=== PATIENT | female | born 1990 | race American Indian/Alaskan Native ===

== ENCOUNTER 2016-07-17 13:12 | Emergency (ER) | payer MEDICAID ==
[2016-07-17 13:12] VITALS: BMI 28.1
[2016-07-17 14:28] VITALS: RESP 18; TEMP 98.4
--- NOTE | 2016-07-17 15:10 | C.PDOC ---
History Of Present Illness 25 y/o female complaining of a wound to her tongue that occurred at 13:30pm. Two weeks ago she had a "frog eye" tongue piercing placed, today she was eating and she felt the jewelry pull up and immediately had bleeding. At this time, she denies any bleeding. No other complaint at this time. Time Seen by Provider: 07/17/16 14:41 Chief Complaint (Nursing): Abnormal Skin Integrity History Per: Patient History/Exam Limitations: no limitations Onset/Duration Of Symptoms: Hrs Current Symptoms Are (Timing): Still Present Quality Of Symptoms: Painful Severity: Moderate Recent travel outside of the [place]: No Additional History Per: Patient Past Medical History Vital Signs: Last Vital Signs Temp 98.4 F 07/17/16 14:23 Pulse 72 07/17/16 15:14 Resp 18 07/17/16 15:14 BP 120/75 07/17/16 15:14 Pulse Ox 98 07/17/16 15:14 - Medical History PMH: Arthritis, Asthma, HTN, Peripheral Edema (FROM FRACTURE), Rheumatoid Arthritis (SLE '05), Seizures Denies: Chronic Kidney Disease Surgical History: Endoscopy - [facility] Procedures FUSION OF LEFT ANKLE JOINT WITH INT FIX, OPEN APPROACH (11/08/15) INJECT/INFUSE NEC (03/22/14) Family History: States: Unknown Family Hx - Social History Hx Tobacco Use: No Hx Alcohol Use: No Hx Substance Use: No - Immunization History Hx Tetanus Toxoid Vaccination: Yes Hx Influenza Vaccination: Yes Hx Pneumococcal Vaccination: Yes Review Of Systems Except As Marked, All Systems Reviewed And Found Negative. ENT: Positive for: Other (laceration to tongue) Physical Exam - Physical Exam Appears: Non-toxic, No Acute Distress Skin: Warm, Dry Tongue: Laceration (Irregular laceration with flap, approximately 4 mm deep not through. No bleeding, discharge, or erythema. Mildly tender. ) Lips: Normal Appearing Throat: No Erythema Neck: Normal ROM Chest: Symmetrical, No Deformity Respiratory: No Wheezing ED Course And Treatment O2 Sat by Pulse Oximetry: 100 Medical Decision Making Medical Decision Making: Initial impression: tongue laceration. Does not require closure at this time. Discussed wound care, and signs of infection. Patient instructed to follow up with PMD in the next few days. Disposition Counseled Patient/Family Regarding: Diagnosis - Disposition Disposition: HOME/ ROUTINE Disposition Time: 15:07 Condition: STABLE Additional Instructions: Allow tongue to heal fully. Watch for signs of infection including redness, swelling and discharge. Prescriptions: Amoxicillin 875 mg PO BID #14 tablet Instructions: Acute Wound Care (ED) Forms: Work Excuse - Clinical Impression Clinical Impression: Tongue wound - Scribe Statement The provider has reviewed the documentation as recorded by the Scribe (Osiris Norris)
[2016-07-17 15:14] VITALS: BP 120/75; PULSE 72
[2016-07-17 17:14] VITALS: O2SAT 100
== END 2016-07-17 15:15 | disposition home or self-care (01) ==
LOC: C.ER 13:12
DX: S01.512A Laceration without foreign body of oral cavity, initial encounter (principal); X58.XXXA Exposure to other specified factors, initial encounter

== ENCOUNTER 2016-07-31 12:30 | Emergency (ER) | payer MEDICAID ==
[2016-07-31 12:31] VITALS: BMI 28.1
--- NOTE | 2016-07-31 14:42 | C.PDOC ---
History Of Present Illness 25 yr old female presents to the ER for evaluation of itching to the entire body since yesterday. Patient reports of urticaria rash. Patient reports of feeling nauseous yesterday and states due to that she had decrease PO intake. Patient denies fever, chills, chest pain, SOB, nausea, vomiting, abdominal pain , diarrhea, dysuria, incontinence, weakness or numbness. Time Seen by Provider: 07/31/16 13:42 Chief Complaint (Nursing): Abnormal Skin Integrity History Per: Patient History/Exam Limitations: no limitations Onset/Duration Of Symptoms: Days (1) Past Medical History Reviewed: Historical Data, Nursing Documentation, Vital Signs Vital Signs: Last Vital Signs Temp 98.0 F 07/31/16 13:23 Pulse 90 07/31/16 13:23 Resp 20 07/31/16 13:23 BP 119/82 07/31/16 13:23 Pulse Ox 100 07/31/16 14:45 - Medical History PMH: Arthritis, Asthma, HTN, Peripheral Edema (FROM FRACTURE), Rheumatoid Arthritis (SLE '05), Seizures Surgical History: Endoscopy - [facility] Procedures FUSION OF LEFT ANKLE JOINT WITH INT FIX, OPEN APPROACH (11/08/15) INJECT/INFUSE NEC (03/22/14) Family History: States: No Known Family Hx - Social History Hx Tobacco Use: No Hx Alcohol Use: No Hx Substance Use: No - Immunization History Hx Tetanus Toxoid Vaccination: Yes Hx Influenza Vaccination: Yes Hx Pneumococcal Vaccination: Yes Review Of Systems Except As Marked, All Systems Reviewed And Found Negative. Constitutional: Negative for: Fever, Chills Cardiovascular: Negative for: Chest Pain Respiratory: Negative for: Shortness of Breath Gastrointestinal: Negative for: Nausea, Vomiting, Abdominal Pain, Diarrhea Genitourinary: Negative for: Dysuria, Incontinence Skin: Positive for: Rash (urticaria itchy rash to entire rash) Neurological: Negative for: Weakness, Numbness Physical Exam - Physical Exam Appears: Well, Non-toxic, No Acute Distress Skin: Warm, Dry, Rash (urticarial rash diffusely, patient is actively scratching ) Head: Atraumatic, Normacephalic Eye(s): bilateral: Normal Inspection, PERRL, EOMI Oral Mucosa: Moist Throat: Normal, No Erythema, No Exudate, No Drooling Neck: Normal, Normal ROM, Supple Chest: Symmetrical, No Tenderness Cardiovascular: Rhythm Regular, No Murmur Respiratory: Normal Breath Sounds, No Rales, No Rhonchi, No Stridor, No Wheezing Extremity: Normal ROM, No Swelling Neurological/Psych: Oriented x3, Normal Speech, Normal Motor ED Course And Treatment O2 Sat by Pulse Oximetry: 100 Medical Decision Making Medical Decision Making: PLAN: * Prednisone PO Disposition Counseled Patient/Family Regarding: Diagnosis, Need For Followup, Rx Given - Disposition Disposition: HOME/ ROUTINE Disposition Time: 15:29 Condition: STABLE Additional Instructions: Follow up with your doctor. 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 Prescriptions: Prednisone [Deltasone] 60 mg PO DAILY #12 tablet Instructions: Urticaria (ED), General Allergic Reaction (ED) Forms: General Discharge Instructions, Work Excuse - POA Present On Arrival: None - Clinical Impression Clinical Impression: Allergic reaction - Scribe Statement The provider has reviewed the documentation as recorded by the Xenaibe Darlene Servin Provider Attestation: All medical record entries made by the Scribe were at my direction and personally dictated by me. I have reviewed the chart and agree that the record accurately reflects my personal performance of the history, physical exam, medical decision making, and the department course for this patient. I have also personally directed, reviewed, and agree with the discharge instructions and disposition.
[2016-07-31 15:42] VITALS: BP 118/75; PULSE 86; RESP 18; TEMP 98.2; O2SAT 99
== END 2016-07-31 15:42 | disposition home or self-care (01) ==
LOC: C.ER 12:30
DX: L50.0 Allergic urticaria (principal)

== ENCOUNTER 2016-09-18 12:10 | Inpatient (IN) | payer MEDICAID ==
[2016-09-07 09:39] VITALS: BMI 29.6
[2016-09-18] MEDS ORDERED: ceFAZolin IV 1 gm in Dextrose 1 GM/50 ML BAG IVPB ONE (13:24)
[2016-09-18] MEDS ORDERED: ceFAZolin IV 2 gm in Dextrose 0 GM/0 ML BAG IVPB ONE (13:25)
[2016-09-18] MEDS ORDERED: Bupivacaine 0.5% Inj(30mL) ONE ×2 (13:25→13:38)
[2016-09-18] MEDS ORDERED: Lidocaine 1% Inj (20ml) ONE (13:26)
[2016-09-18] MEDS ORDERED: Propofol 10 mg/ml Inj (20 ML) ONE (13:34)
[2016-09-18] MEDS ORDERED: Midazolam 2 MG/2 ML VIAL ONE (13:34)
[2016-09-18] MEDS ORDERED: Lactated Ringer's 1,000 ML IV ONE ×2 (13:44→16:51)
[2016-09-18] MEDS ORDERED: Morphine 4 MG/ML VIAL ONE ×4 (15:43→16:47)
[2016-09-18] MEDS ORDERED: Absorbable Gelatin Sponge Size 12-7 ONE (16:34)
[2016-09-18] MEDS ORDERED: Bupivacaine HCl 0.25% PF (10 ml) Inj ONE (16:56)
[2016-09-18] MEDS: HYDROmorphone 0.5 mg/0.5 ml ISec IVP PRN ×2 (17:35→17:50)
--- NOTE | 2016-09-18 17:36 | PCM.SURG1 ---
Surgeon's Initial Post Op Note - Surgeon's Notes Surgeon: Dr. Leon [employer] Technician: Harley, PGY-2 Type of Anesthesia: General LMA, Block Regional (popliteal block) Anesthesia Administered By: Dr. Lisa Pre-Operative Diagnosis: Left ankle- painful retained hardware Operative Findings: See dictation. Hemostasis: PTT at 350mmHg. Materials: 3-0 vicryl, 4-0 vicryl, 4-0 nylon, betadine-soaked adaptic, ABD pads, DSD, posterior splint; 15cc of Octonius Pro-dense bone graft. Injectables: 10cc 0.25% Marcaine plain post-op. Condition: Stable Post-Operative Diagnosis: Same as above Operation Performed: Left ankle- removal of painful retained hardware (tibial nail and screws) Specimen/Specimens Removed: Tibial nail and 4 bone screws Estimated Blood Loss: EBL {In ML}: 25 Blood Products Given: N/A Drains Used: No Drains Post-Op Condition: Good Date of Surgery/Procedure: 09/18/16 Time of Surgery/Procedure: 14:00
--- NOTE | 2016-09-18 17:40 | CP.SDSHP ---
Same Day Surgery H & P - History Proposed Procedure: Left ankle- removal of painful retained hardware Pre-Op Diagnosis: Left ankle- painful retained hardware - Previous Medical/Surgical History Pain: 4.Moderate Pain Previous Surgical History: Left tibiotalocalcaneal fusion - Allergies Allergies: Allergies latex Allergy (Intermediate, Verified 07/31/16 13:22) RASH diphenhydramine HCl [From Benadryl] Allergy (Mild, Verified 07/31/16 13:22) RASH seafood Allergy (Intermediate, Uncoded 07/31/16 13:22) RASH - Physical Exam Vital Signs: Vital Signs 09/18/16 12:19 Temperature 97.5 F L Pulse Rate 98 H Respiratory 18 Rate Blood Pressure 128/87 O2 Sat by Pulse 99 Oximetry Mental Status: Alert & Oriented x3 - Impression Impression: Patient to OR today for removal of Left ankle removal of painful hardware. Patient's medical clearance in chart. Patient's NPO status confirmed. Pt. Evaluated Today:Candidate for Anesthesia & Procedure: Yes Short Stay Discharge - Short Stay Discharge Admitting Diagnosis/Reason for Visit: PAIN DUE TO INTERNAL ORTHOPEDIC PROSTH DEV /GRTORIE, I Referrals: Carly Leon DPM [Staff Provider] - Instructions: Crutch Instructions (DC), RICE Therapy (GEN)
[2016-09-18] MEDS ORDERED: HYDROmorphone 1 mg/ml ISec ONE ×2 (17:46→18:12)
[2016-09-18] MEDS ORDERED: HYDROmorphone 0.5 mg/0.5 ml ISec IVP ONE ×2 (18:12→18:40)
--- NOTE | 2016-09-18 18:52 | CP.PCM.HP ---
<Jamaal Tavera - Last Filed: 09/18/16 19:55> History of Present Illness - History of Present Illness History of Present Illness: cc: "ankle pain" HPI: Patient is a 25 year old male with PMHx of hypertension (no longer on medication), hx of seizures (last 2010, no longer on medications), Lupus, joint degeneration that underwent left ankle hardware removal. Per the mother at bedside, the hardware was originally placed about 1 year ago for a severely degenerated joint due to being steroids for so long for her lupus. Patient was informed that the hardware may have been causing some of lupus flare ups. She was admitted to the hospital for intractable post operative pain. PMHx: As stated above PSHx: Left tibiotalocalcaneal fusion Allergies: Benadryl, Seafood, Latex Fam hx: unknown Social hx: Denies hx of smoking, alcohol, drugs Present on Admission - Present on Admission Any Indicators Present on Admission: No Review of Systems - Constitutional Constitutional: absent: Anorexia, Chills, Frequent Falls, Weight Loss, Weakness - Cardiovascular Cardiovascular: absent: Chest Pain, Claudication, Irregular Heart Rhythm, Leg Edema, Palpitations, Pedal Edema - Respiratory Respiratory: absent: Cough, Dyspnea, Hemoptysis, Wheezing - Gastrointestinal Gastrointestinal: absent: Abdominal Pain, Change in Bowel Habits, Constipation, Diarrhea, Nausea, Vomiting - Genitourinary Genitourinary: absent: Difficulty Urinating, Dysuria - Musculoskeletal Musculoskeletal: absent: Back Pain, Myalgias, Numbness, Tingling Additional comments: left ankle pain - Neurological Neurological: absent: Abnormal Hearing, Tingling, Tremor, Weakness - Psychiatric Psychiatric: absent: Anxiety, Panic Attacks, Paranoia, Suicidal Ideation - Endocrine Endocrine: absent: Fatigue, Palpitations Past Patient History - Infectious Disease Hx of Infectious Diseases: None - Tetanus Immunizations Tetanus Immunization: Unknown - Past Medical History & Family History Past Medical History?: Yes - Past Social History Smoking Status: Never Smoked Chewing Tobacco Use: No Cigar Use: No Alcohol: None - CARDIAC Hx Cardiac Disorders: Yes Hx Hypertension: Yes (controlled no meds per pt) Hx Peripheral Edema: Yes (FROM FRACTURE) - PULMONARY Hx Respiratory Disorders: Yes Hx Asthma: Yes (never hospitalized) - NEUROLOGICAL Hx Neurological Disorder: Yes Hx Seizures: Yes (febrile 2010 last) - ENDOCRINE/METABOLIC Hx Endocrine Disorders: Yes Hx Systemic Lupus Erythematosus: Yes - HEMATOLOGICAL/ONCOLOGICAL Hx Blood Disorders: Yes Hx Blood Transfusions: Yes (2011) Hx Blood Transfusion Reaction: No - INTEGUMENTARY Hx Dermatological Problems: Yes (lupus rash neck) - MUSCULOSKELETAL/RHEUMATOLOGICAL Hx Musculoskeletal Disorders: Yes Hx Arthritis: Yes Hx Degenerative Joint Disease: Yes Hx Rheumatoid Arthritis: Yes (SLE '05) - GASTROINTESTINAL Hx Gastrointestinal Disorders: Yes Hx Gastroesophageal Reflux: Yes - SURGICAL HISTORY Hx Surgeries: Yes Hx Joint Replacement: Yes (abiodun hip) Hx Orthopedic Surgery: Yes (fusion left ankle) - ANESTHESIA Hx Anesthesia: Yes Hx Anesthesia Reactions: No Hx Malignant Hyperthermia: No Has any member of the family had a problem w/ anesthesia?: No Meds Allergies/Adverse Reactions: Allergies Allergy/AdvReac Type Severity Reaction Status Date / Time latex Allergy Intermediate RASH Verified 07/31/16 13:22 diphenhydramine HCl Allergy Mild RASH Verified 07/31/16 13:22 [From Benadryl] seafood Allergy Intermediate RASH Uncoded 07/31/16 13:22 Physical Exam - Constitutional Appears: Non-toxic, No Acute Distress - Head Exam Head Exam: ATRAUMATIC, NORMAL INSPECTION, NORMOCEPHALIC - Eye Exam Pupil Exam: NORMAL ACCOMODATION, PERRL - ENT Exam ENT Exam: Mucous Membranes Moist - Respiratory Exam Respiratory Exam: Clear to Auscultation Bilateral, NORMAL BREATHING PATTERN. absent: Prolonged Expiratory Phase, Rales, Rhonchi, Wheezes - Cardiovascular Exam Cardiovascular Exam: REGULAR RHYTHM, +S1, +S2 - GI/Abdominal Exam GI & Abdominal Exam: Normal Bowel Sounds, Soft. absent: Distended, Firm, Hyperactive Bowel Sounds, Tenderness - Extremities Exam Extremities exam: Positive for: normal capillary refill Additional comments: Left ankle wrapped - Neurological Exam Neurological exam: Alert, CN II-XII Intact, Oriented x3 - Psychiatric Exam Psychiatric exam: Agitated, Normal Affect, Normal Mood - Skin Skin Exam: Dry, Intact, Normal Color, Warm Results - Vital Signs Recent Vital Signs: Last Vital Signs Temp 98 F 09/18/16 17:30 Pulse 122 H 09/18/16 17:30 Resp 13 09/18/16 17:30 BP 144/103 H 09/18/16 17:30 Pulse Ox 98 09/18/16 17:30 Assessment & Plan - Assessment and Plan (Free Text) Assessment: Intractable pain Percocet 2 tab PO Q4h PRN Percocet 1 tab PO Q4h PRN Dilaudid 1mg IVP Q3h PRN Tylenol 650mg PO Q6h PRN SLE Prednisone 4mg PO Daily Cellcept 250mg PO TID Plaquenil 200mg PO BID Prophylactic Measure Protonix 40mg PO Daily Heparin 5000U SC Q8h <Cedric Hatch - Last Filed: 09/19/16 13:28> Results - Vital Signs Recent Vital Signs: Last Vital Signs Temp 98 F 09/19/16 07:00 Pulse 109 H 09/19/16 10:00 Resp 20 09/19/16 07:00 BP 135/91 H 09/19/16 10:00 Pulse Ox 100 09/19/16 07:00 - Labs Result Diagrams: 09/19/16 07:09 09/19/16 07:09 Labs: Laboratory Results - last 24 hr 09/19/16 09/19/16 07:09 07:09 WBC 7.8 RBC 4.01 Hgb 12.1 Hct 36.8 MCV 91.8 MCH 30.2 MCHC 32.9 L RDW 12.9 Plt Count 294 MPV 7.3 Neut % (Auto) 70.3 Lymph % (Auto) 15.3 L [place] % (Auto) 13.8 H Eos % (Auto) 0.2 Baso % (Auto) 0.4 Neut # 5.5 Lymph # 1.2 [place] # 1.1 H Eos # 0.0 Baso # 0.0 Sodium 137 Potassium 3.8 Chloride 103 Carbon Dioxide 25 Anion Gap 14 BUN 13 Creatinine 0.8 Est GFR ( Amer) > 60 Est GFR (Non-Af Amer) > 60 Random Glucose 83 Calcium 8.9 Total Bilirubin 0.7 AST 47 H D ALT 97 H D Alkaline Phosphatase 80 Total Protein 6.8 Albumin 3.7 Globulin 3.1 Albumin/Globulin Ratio 1.2 Attending/Attestation - Attestation I have personally seen and examined this patient.: Yes I have fully participated in the care of the patient.: Yes I have reviewed all pertinent clinical information: Yes Notes (Text): 09/19/16 13:27 Patient was seen and examined at bedside with the resident. Patient is to status post removal of hardware from the left ankle. Patient admitted to medical services on the request podiatry for management of pain and for management of her medical conditions. I discussed the plan of care with the resident and agree with the above history and physical and assessment/plan.
[2016-09-18] MEDS ORDERED: Albuterol HFA 90 mcg/actuation (8 g) INH PRN (19:51)
[2016-09-18] MEDS ORDERED: HYDROmorphone 1 mg/ml ISec IVP PRN (19:53)
[2016-09-18] MEDS: ceFAZolin IV 1 gm in Dextrose 1 GM/50 ML BAG IVPB SCH (22:31)
[2016-09-18] MEDS ORDERED: Morphine 4 MG/ML VIAL IV PRN (23:00)
[2016-09-19] MEDS: Oxycodone/Acetaminophen 5/325 mg Tab PO PRN ×2 (04:38→20:59)
[2016-09-19] MEDS: ceFAZolin IV 1 gm in Dextrose 1 GM/50 ML BAG IVPB SCH (05:53)
[2016-09-19 07:40] LABS: BASO % 0.4 % (0.0-2.0); EOS % 0.2 % (0.0-4.0); HEMATOCRIT 36.8 % (34.0-47.0); LYMPH # 1.2 K/uL (1.0-4.3); LYMPH % 15.3 % (20.0-40.0); MEAN CELL VOLUME 91.8 fL (81.0-99.0); MEAN CORPUSCULAR HEMOGLOBIN 30.2 pg (27.0-31.0); MEAN CORPUSCULAR HGB CONC 32.9 g/dL (33.0-37.0); MEAN PLATELET VOLUME 7.3 fL (7.2-11.7); MONO # 1.1 K/uL (0.0-0.8); MONO % 13.8 % (0.0-10.0); RED CELL DISTRIBUTION WIDTH 12.9 % (11.5-14.5); WHITE BLOOD COUNT 7.8 K/uL (4.8-10.8)
[2016-09-19 07:45] LABS: CHLORIDE 103 mmol/L (98-107); POTASSIUM 3.8 mmol/L (3.6-5.2); SODIUM 137 mmol/L (132-148)
[2016-09-19 07:47] LABS: GFR AFRICAN-AMERICAN > 60
[2016-09-19 07:48] LABS: ALB/GLOB RATIO 1.2 (1.0-2.1); ALKALINE PHOSPHATASE 80 U/L (38-126); ALT/SGPT 97 U/L (9-52); AST/SGOT 47 U/L (14-36); BILIRUBIN,TOTAL 0.7 mg/dL (0.2-1.3); BLOOD UREA NITROGEN 13 mg/dL (7-17); CALCIUM 8.9 mg/dl (8.6-10.4); CARBON DIOXIDE 25 mmol/L (22-30); GLUCOSE,RANDOM 83 mg/dL (65-105); TOTAL PROTEIN 6.8 g/dL (6.3-8.3)
--- NOTE | 2016-09-19 09:50 | CP.PCM.PN ---
Subjective - Date & Time of Evaluation Date of Evaluation: 09/19/16 Time of Evaluation: 10:00 - Subjective Subjective: 25 y/o female was seen and evaluated at bedside this morning. Patient is 1 day s /p Left ankle removal of painful retained hardware. She states that she was unable to sleep throughout the night due to the severity of her pain. She states that the Dilaudid was making her vomit and the switch to Morphine makes her sleepy. She denies any fever/chills. Complains of generalized/diffuse pain in her Left lower extremity. She states that she "can not go home like this." LLE is elevated; posterior splint C/D/I. Objective - Vital Signs/Intake and Output Vital Signs (last 24 hours): Temp Pulse Resp BP Pulse Ox 98 F 94 H 20 141/80 100 09/19/16 07:00 09/19/16 08:31 09/19/16 07:00 09/19/16 08:31 09/19/16 07:00 Intake and Output: 09/19/16 09/19/16 06:59 18:59 Output Total 600 Balance -600 - Medications Medications: Current Medications Acetaminophen (Tylenol 325mg Tab) 650 mg PO Q6 PRN PRN Reason: Pain, Mild (1-3) Albuterol (Ventolin Hfa 90 Mcg/Actuation (8 G)) 1 puff INH RBID PRN PRN Reason: Wheezing Ferrous Sulfate (Feosol) 325 mg PO DAILY [facility] Heparin Sodium (Porcine) (Heparin) 5,000 units SC Q8 [facility] Last Admin: 09/19/16 05:53 Dose: 5,000 units Hydroxychloroquine Sulfate (Plaquenil) 200 mg PO BID [facility] Cefazolin Sodium/Dextrose (Ancef Iv 1 Gm Duplex) 1 gm in 50 mls @ 100 mls/hr IVPB Q8H [facility] Stop: 09/19/16 12:00 Last Admin: 09/19/16 05:53 Dose: 100 mls/hr Morphine Sulfate (Morphine) 2 mg IVP Q4 PRN PRN Reason: Pain, severe (8-10) Last Admin: 09/19/16 08:32 Dose: 2 mg Mycophenolate Mofetil (Cellcept Cap) 250 mg PO TID [facility] Ondansetron HCl (Zofran Tab) 4 mg PO PRN PRN PRN Reason: Nausea/Vomiting Oxycodone/Acetaminophen (Percocet 5/325 Mg Tab) 1 tab PO Q4H PRN PRN Reason: Pain, moderate (4-7) Stop: 09/21/16 17:32 Oxycodone/Acetaminophen (Percocet 5/325 Mg Tab) 2 tab PO Q4H PRN PRN Reason: Pain, severe (8-10) Stop: 09/21/16 17:32 Last Admin: 09/19/16 04:38 Dose: 2 tab Pantoprazole Sodium (Protonix Ec Tab) 40 mg PO DAILY [facility] Prednisone (Prednisone Tab) 4 mg PO DAILY [facility] - Labs Labs: 09/19/16 07:09 09/19/16 07:09 - Constitutional Appears: Non-toxic, No Acute Distress - Neurological Exam Neurological Exam: Alert, Awake, Oriented x3 - Skin Skin Exam: Normal Color, Warm - Additional Findings Additional findings: Left lower extremity: Posterior splint appears to be C/D/I Normal capillary fill time noted to all 5 digits Normal color noted to all distal pulps of digits Unable to perform active ROM of her toes secondary to pain Assessment and Plan - Assessment and Plan (Free Text) Assessment: 25 y/o female 1 day s/p Left ankle removal of painful retained hardware Plan: Patient seen and evaluated at bedside Discussed patient in detail with attending, Dr. Leon Labs and vitals reviewed: no leukocytosis; afebrile Ordered Toradol 30mg IM - stat dose Continue Morphine 2mg IV q4 Will continue to monitor pain level LLE dressings and posterior splint kept intact Continue ice (behind left knee) and elevation with 3 pillows under Left ankle Awaiting PT eval for crutch training and gait eval Patient to continue remaining NWB to the Left lower extremity Podiatry to follow while patient remains in house
--- NOTE | 2016-09-19 09:53 | RAD ---
PROCEDURE: Left Ankle Radiographs. HISTORY: Status post removal of left ankle hardware. COMPARISON: Preoperative examination 08/28/2016. Expected postoperative findings following hardware removal. JOINTS: Normal. No osteoarthritis. Ankle mortise maintained. Talar dome intact SOFT TISSUES: Detail obscured by overlying fiberglass cast. OTHER FINDINGS: None. IMPRESSION: Satisfactory postoperative status. No acute findings.
[2016-09-19] MEDS: Pantoprazole 40 mg EC Tab PO SCH (10:07)
--- NOTE | 2016-09-19 13:13 | RAD ---
PROCEDURE: Intraoperative Fluoroscopy. HISTORY: REMOVAL OF HARDWARE LT ANKLE FINDINGS: Fluoroscopic assistance was provided for removal of left ankle hardware. Please refer to the operative report from
--- NOTE | 2016-09-19 16:14 | CP.PCM.PN ---
Subjective - Date & Time of Evaluation Date of Evaluation: 09/19/16 Time of Evaluation: 16:15 - Subjective Subjective: Med progress note. Attending: Dr. Daugherty Pt seen and examined at bedside. No acute distress, but pt is in some pain. She is s/p left ankle hardware removal. Will add zofran for nausea and oxycontin for pain. Objective - Vital Signs/Intake and Output Vital Signs (last 24 hours): Temp Pulse Resp BP Pulse Ox 97.7 F 94 H 20 109/74 96 09/19/16 15:11 09/19/16 15:11 09/19/16 15:11 09/19/16 15:11 09/19/16 15:11 Intake and Output: 09/19/16 09/19/16 06:59 18:59 Intake Total 400 Output Total 600 Balance -600 400 - Medications Medications: Current Medications Acetaminophen (Tylenol 325mg Tab) 650 mg PO Q6 PRN PRN Reason: Pain, Mild (1-3) Albuterol (Ventolin Hfa 90 Mcg/Actuation (8 G)) 1 puff INH RBID PRN PRN Reason: Wheezing Ferrous Sulfate (Feosol) 325 mg PO DAILY [facility] Last Admin: 09/19/16 10:08 Dose: 325 mg Heparin Sodium (Porcine) (Heparin) 5,000 units SC Q8 [facility] Last Admin: 09/19/16 14:10 Dose: 5,000 units Hydroxychloroquine Sulfate (Plaquenil) 200 mg PO BID [facility] Last Admin: 09/19/16 10:08 Dose: 200 mg Morphine Sulfate (Morphine) 2 mg IVP Q4 PRN PRN Reason: Pain, severe (8-10) Last Admin: 09/19/16 13:48 Dose: 2 mg Mycophenolate Mofetil (Cellcept Cap) 250 mg PO TID [facility] Last Admin: 09/19/16 14:59 Dose: 250 mg Ondansetron HCl (Zofran Tab) 4 mg PO PRN PRN PRN Reason: Nausea/Vomiting Ondansetron HCl (Zofran Inj) 4 mg IVP Q6 PRN PRN Reason: Nausea/Vomiting Oxycodone/Acetaminophen (Percocet 5/325 Mg Tab) 1 tab PO Q4H PRN PRN Reason: Pain, moderate (4-7) Stop: 09/21/16 17:32 Oxycodone/Acetaminophen (Percocet 5/325 Mg Tab) 2 tab PO Q4H PRN PRN Reason: Pain, severe (8-10) Stop: 09/21/16 17:32 Last Admin: 09/19/16 04:38 Dose: 2 tab Pantoprazole Sodium (Protonix Ec Tab) 40 mg PO DAILY [facility] Last Admin: 09/19/16 10:07 Dose: 40 mg Prednisone (Prednisone Tab) 4 mg PO DAILY [facility] Last Admin: 09/19/16 10:09 Dose: 4 mg - Labs Labs: 09/19/16 07:09 09/19/16 07:09 - Constitutional Appears: Non-toxic, No Acute Distress - Head Exam Head Exam: ATRAUMATIC, NORMAL INSPECTION, NORMOCEPHALIC - Eye Exam Eye Exam: EOMI - ENT Exam ENT Exam: Mucous Membranes Moist - Respiratory Exam Respiratory Exam: NORMAL BREATHING PATTERN. absent: Respiratory Distress - Cardiovascular Exam Cardiovascular Exam: +S1, +S2 - GI/Abdominal Exam GI & Abdominal Exam: Soft, Normal Bowel Sounds. absent: Tenderness - Extremities Exam Extremities Exam: Full ROM Additional comments: Cast on left leg. - Neurological Exam Neurological Exam: Alert, Awake, Oriented x3 - Psychiatric Exam Psychiatric exam: Normal Affect, Normal Mood - Skin Skin Exam: Dry, Intact, Normal Color, Warm Assessment and Plan - Assessment and Plan (Free Text) Assessment: This is a 25 yo female with pmh htn, seizures, lupus presenting with Intractable pain Percocet 2 tab PO Q4h PRN Percocet 1 tab PO Q4h PRN Dilaudid 1mg IVP Q3h PRN Tylenol 650mg PO Q6h PRN s/p left ankle hardware removal will add oxycontin as pain relief alternative. SLE Prednisone 4mg PO Daily Cellcept 250mg PO TID Plaquenil 200mg PO BID Prophylactic Measure Protonix 40mg PO Daily Heparin 5000U SC Q8h will add zofran for nausea discussed with Dr. Daugherty
[2016-09-19] MEDS: oxyCODONE 20 mg ER Tab (oxyCONTIN) PO SCH ×2 (22:17→22:35)
[2016-09-20] MEDS: Oxycodone/Acetaminophen 5/325 mg Tab PO PRN ×2 (03:35→20:11)
[2016-09-20 06:22] LABS: BASO % 0.5 % (0.0-2.0); EOS % 0.2 % (0.0-4.0); HEMATOCRIT 36.5 % (34.0-47.0); LYMPH # 1.2 K/uL (1.0-4.3); LYMPH % 12.9 % (20.0-40.0); MEAN CELL VOLUME 92.2 fL (81.0-99.0); MEAN CORPUSCULAR HEMOGLOBIN 30.4 pg (27.0-31.0); MEAN PLATELET VOLUME 7.5 fL (7.2-11.7); MONO # 1.3 K/uL (0.0-0.8); MONO % 13.2 % (0.0-10.0); NRBC % 0.1 % (0.0-2.0); WHITE BLOOD COUNT 9.4 K/uL (4.8-10.8)
[2016-09-20 06:38] LABS: CHLORIDE 103 mmol/L (98-107)
[2016-09-20 06:39] LABS: POTASSIUM 3.8 mmol/L (3.6-5.2); SODIUM 134 mmol/L (132-148)
[2016-09-20 06:41] LABS: ALB/GLOB RATIO 1.1 (1.0-2.1); ALKALINE PHOSPHATASE 72 U/L (38-126); ALT/SGPT 66 U/L (9-52); AST/SGOT 38 U/L (14-36); BILIRUBIN,TOTAL 0.8 mg/dL (0.2-1.3); BLOOD UREA NITROGEN 11 mg/dL (7-17); CARBON DIOXIDE 20 mmol/L (22-30); GFR AFRICAN-AMERICAN > 60; GLUCOSE,RANDOM 86 mg/dL (65-105); TOTAL PROTEIN 6.6 g/dL (6.3-8.3)
[2016-09-20 06:42] LABS: CALCIUM 8.6 mg/dl (8.6-10.4); MAGNESIUM 1.9 mg/dL (1.6-2.3); PHOSPHOROUS 3.9 mg/dL (2.5-4.5)
--- NOTE | 2016-09-20 08:50 | CP.PCM.PN ---
Subjective - Date & Time of Evaluation Date of Evaluation: 09/20/16 Time of Evaluation: 08:30 - Subjective Subjective: 25 y/o female was seen and evaluated at bedside this morning. Patient is 2 days s/p Left ankle removal of painful retained hardware. Patient appears to be more calm today as compared to yesterday. Still complains of ongoing pain in her Left lower extremity, but now states that it has been intermittent instead of being constant. Denies any vomiting since yesterday but still complains of nausea. She denies any fever/chills. No other complaints reported at this time. Objective - Vital Signs/Intake and Output Vital Signs (last 24 hours): Temp Pulse Resp BP Pulse Ox 98.0 F 94 H 20 115/75 100 09/20/16 07:00 09/20/16 07:00 09/20/16 07:00 09/20/16 07:00 09/20/16 07:00 Intake and Output: 09/20/16 09/20/16 06:59 18:59 Intake Total 450 Balance 450 - Medications Medications: Current Medications Albuterol (Ventolin Hfa 90 Mcg/Actuation (8 G)) 1 puff INH RBID PRN PRN Reason: Wheezing Docusate Sodium (Colace) 100 mg PO BID [facility] Ferrous Sulfate (Feosol) 325 mg PO DAILY [facility] Last Admin: 09/19/16 10:08 Dose: 325 mg Heparin Sodium (Porcine) (Heparin) 5,000 units SC Q8 [facility] Last Admin: 09/20/16 06:07 Dose: 5,000 units Hydroxychloroquine Sulfate (Plaquenil) 200 mg PO BID [facility] Last Admin: 09/19/16 18:05 Dose: 200 mg Mycophenolate Mofetil (Cellcept Cap) 250 mg PO TID [facility] Last Admin: 09/19/16 18:05 Dose: 250 mg Ondansetron HCl (Zofran Inj) 4 mg IVP Q6 PRN PRN Reason: Nausea/Vomiting Last Admin: 09/19/16 18:10 Dose: 4 mg Oxycodone HCl (Oxycontin Extended Release Tab) 20 mg PO Q12 [facility] Last Admin: 09/19/16 22:35 Dose: Not Given Oxycodone/Acetaminophen (Percocet 5/325 Mg Tab) 1 tab PO Q4H PRN PRN Reason: Pain, moderate (4-7) Stop: 09/21/16 17:32 Last Admin: 09/19/16 20:59 Dose: 1 tab Oxycodone/Acetaminophen (Percocet 5/325 Mg Tab) 2 tab PO Q4H PRN PRN Reason: Pain, severe (8-10) Stop: 09/21/16 17:32 Last Admin: 09/20/16 03:35 Dose: 2 tab Pantoprazole Sodium (Protonix Ec Tab) 40 mg PO DAILY [facility] Last Admin: 09/19/16 10:07 Dose: 40 mg Prednisone (Prednisone Tab) 4 mg PO DAILY [facility] Last Admin: 09/19/16 10:09 Dose: 4 mg - Labs Labs: 09/20/16 06:03 09/20/16 06:03 - Constitutional Appears: Non-toxic, No Acute Distress - Neurological Exam Neurological Exam: Alert, Awake, Oriented x3 - Psychiatric Exam Psychiatric exam: Flat Affect - Additional Findings Additional findings: Left lower extremity: Posterior splint appears to be C/D/I Normal capillary fill time noted to all 5 digits Normal color noted to all distal pulps of digits Unable to perform active ROM of her toes secondary to pain LLE is elevated Assessment and Plan - Assessment and Plan (Free Text) Assessment: 25 y/o female 2 days s/p Left ankle removal of painful retained hardware Plan: Patient seen and evaluated at bedside Discussed patient in detail with attending, Dr. Leon Labs and vitals reviewed: no leukocytosis; afebrile Continue current pain management LLE dressings and posterior splint kept intact Continue ice (behind left knee) and elevation with 3 pillows under Left ankle Physical therapy recommends TCU vs. discharge home with outpatient follow-up Social work consult placed for D/C planning Patient to continue remaining NWB to the Left lower extremity Podiatry to follow while patient remains in house; patient is to follow-up with Dr. Leon at the [facility] outpatient podiatry clinic upon discharge.
[2016-09-20] MEDS: oxyCODONE 20 mg ER Tab (oxyCONTIN) PO SCH ×2 (10:17→22:17)
[2016-09-20] MEDS: Pantoprazole 40 mg EC Tab PO SCH (10:18)
[2016-09-20] MEDS ORDERED: POLYETHYLENE GLYCOL 3350 17 GM/Dose PACKET PO ONE (10:56)
--- NOTE | 2016-09-20 11:12 | CP.PCM.PN ---
<Kenn Brown - Last Filed: 09/20/16 11:12> Subjective - Date & Time of Evaluation Date of Evaluation: 09/20/16 Time of Evaluation: 11:10 - Subjective Subjective: Medicine progress note. Attending: Dr. Christensen Pt seen and examined at bedside. No acute distress. No events overnight. DC tylenol and morphine, will add colace and miralax, podiatry following. No fevers , chills, vomiting, diarrhea. Objective - Vital Signs/Intake and Output Vital Signs (last 24 hours): Temp Pulse Resp BP Pulse Ox 98.0 F 100 H 20 131/85 100 09/20/16 07:00 09/20/16 10:15 09/20/16 07:00 09/20/16 10:15 09/20/16 07:00 Intake and Output: 09/20/16 09/20/16 06:59 18:59 Intake Total 450 Balance 450 - Medications Medications: Current Medications Albuterol (Ventolin Hfa 90 Mcg/Actuation (8 G)) 1 puff INH RBID PRN PRN Reason: Wheezing Docusate Sodium (Colace) 100 mg PO BID [facility] Last Admin: 09/20/16 10:18 Dose: 100 mg Ferrous Sulfate (Feosol) 325 mg PO DAILY [facility] Last Admin: 09/20/16 10:18 Dose: 325 mg Heparin Sodium (Porcine) (Heparin) 5,000 units SC Q8 [facility] Last Admin: 09/20/16 06:07 Dose: 5,000 units Hydroxychloroquine Sulfate (Plaquenil) 200 mg PO BID [facility] Last Admin: 09/20/16 10:19 Dose: 200 mg Mycophenolate Mofetil (Cellcept Cap) 250 mg PO TID [facility] Last Admin: 09/20/16 10:19 Dose: 250 mg Ondansetron HCl (Zofran Inj) 4 mg IVP Q6 PRN PRN Reason: Nausea/Vomiting Last Admin: 09/19/16 18:10 Dose: 4 mg Oxycodone HCl (Oxycontin Extended Release Tab) 20 mg PO Q12 [facility] Last Admin: 09/20/16 10:17 Dose: 20 mg Oxycodone/Acetaminophen (Percocet 5/325 Mg Tab) 1 tab PO Q4H PRN PRN Reason: Pain, moderate (4-7) Stop: 09/21/16 17:32 Last Admin: 09/19/16 20:59 Dose: 1 tab Oxycodone/Acetaminophen (Percocet 5/325 Mg Tab) 2 tab PO Q4H PRN PRN Reason: Pain, severe (8-10) Stop: 09/21/16 17:32 Last Admin: 09/20/16 03:35 Dose: 2 tab Pantoprazole Sodium (Protonix Ec Tab) 40 mg PO DAILY [facility] Last Admin: 09/20/16 10:18 Dose: 40 mg Polyethylene Glycol (Miralax) 17 gm PO ONCE ONE Stop: 09/20/16 10:57 Prednisone (Prednisone Tab) 4 mg PO DAILY [facility] Last Admin: 09/20/16 10:19 Dose: 4 mg - Labs Labs: 09/20/16 06:03 09/20/16 06:03 - Constitutional Appears: Non-toxic, No Acute Distress - Head Exam Head Exam: ATRAUMATIC, NORMAL INSPECTION, NORMOCEPHALIC - Eye Exam Eye Exam: EOMI - ENT Exam ENT Exam: Mucous Membranes Moist - Neck Exam Neck Exam: Full ROM, Normal Inspection - Respiratory Exam Respiratory Exam: NORMAL BREATHING PATTERN. absent: Respiratory Distress - Cardiovascular Exam Cardiovascular Exam: +S1, +S2 - GI/Abdominal Exam GI & Abdominal Exam: Soft, Normal Bowel Sounds. absent: Tenderness - Extremities Exam Extremities Exam: absent: Normal Inspection Additional comments: Cast on left leg- neurovascular intact with sensation intact - Neurological Exam Neurological Exam: Alert, Awake, Oriented x3 - Psychiatric Exam Psychiatric exam: Flat Affect - Skin Skin Exam: Dry, Intact, Normal Color, Warm Assessment and Plan - Assessment and Plan (Free Text) Assessment: This is a 25 yo female with pmh htn, seizures, lupus presenting with Intractable pain Percocet 5/325 2 tab PO Q4h PRN Percocet 5/325 1 tab PO Q4h PRN s/p left ankle hardware removal we have added oxycontin as pain relief alternative. SLE Prednisone 4mg PO Daily Cellcept 250mg PO TID Plaquenil 200mg PO BID pt has not been following up regularly with eye doctor Prophylactic Measure Protonix 40mg PO Daily Heparin 5000U SC Q8h will add zofran for nausea we will add colace 100 mg bid and miralax 17 mg once and bedside commode Discussed with Dr. Christensen. <Shawanda Christensen V - Last Filed: 09/20/16 16:02> Objective - Vital Signs/Intake and Output Vital Signs (last 24 hours): Temp Pulse Resp BP Pulse Ox 98.0 F 100 H 20 131/85 100 09/20/16 07:00 09/20/16 10:15 09/20/16 07:00 09/20/16 10:15 09/20/16 07:00 Intake and Output: 09/20/16 09/20/16 06:59 18:59 Intake Total 450 Balance 450 - Medications Medications: Current Medications Albuterol (Ventolin Hfa 90 Mcg/Actuation (8 G)) 1 puff INH RBID PRN PRN Reason: Wheezing Docusate Sodium (Colace) 100 mg PO BID [facility] Last Admin: 09/20/16 10:18 Dose: 100 mg Ferrous Sulfate (Feosol) 325 mg PO DAILY [facility] Last Admin: 09/20/16 10:18 Dose: 325 mg Heparin Sodium (Porcine) (Heparin) 5,000 units SC Q8 [facility] Last Admin: 09/20/16 14:34 Dose: 5,000 units Hydroxychloroquine Sulfate (Plaquenil) 200 mg PO BID [facility] Last Admin: 09/20/16 10:19 Dose: 200 mg Mycophenolate Mofetil (Cellcept Cap) 250 mg PO TID [facility] Last Admin: 09/20/16 14:34 Dose: 250 mg Ondansetron HCl (Zofran Inj) 4 mg IVP Q6 PRN PRN Reason: Nausea/Vomiting Last Admin: 09/19/16 18:10 Dose: 4 mg Oxycodone HCl (Oxycontin Extended Release Tab) 20 mg PO Q12 [facility] Last Admin: 09/20/16 10:17 Dose: 20 mg Oxycodone/Acetaminophen (Percocet 5/325 Mg Tab) 1 tab PO Q4H PRN PRN Reason: Pain, moderate (4-7) Stop: 09/21/16 17:32 Last Admin: 09/19/16 20:59 Dose: 1 tab Oxycodone/Acetaminophen (Percocet 5/325 Mg Tab) 2 tab PO Q4H PRN PRN Reason: Pain, severe (8-10) Stop: 09/21/16 17:32 Last Admin: 09/20/16 03:35 Dose: 2 tab Pantoprazole Sodium (Protonix Ec Tab) 40 mg PO DAILY [facility] Last Admin: 09/20/16 10:18 Dose: 40 mg Prednisone (Prednisone Tab) 4 mg PO DAILY [facility] Last Admin: 09/20/16 10:19 Dose: 4 mg - Labs Labs: 09/20/16 06:03 09/20/16 06:03 Attending/Attestation - Attestation I have personally seen and examined this patient.: Yes I have fully participated in the care of the patient.: Yes I have reviewed all pertinent clinical information, including history, physical exam and plan: Yes Notes (Text): Patient seen, examined, and case discussed with day-time resident. This is a 25 yo female with PMHx HTN, SLE, prior history seizure (2010, febrile , not taking any medications currently) comes in for removal of left ankle hardware with associated intractable pain. Patient refused extended release oxycodone overnight because she felt she was getting too many pain medications. I explained to the patient at bedside this morning, I discontinue the IV pain prn because she cannot go home with IV pain medications and then goal is try to minimize her pain with both extended release and immediate release to try to bring her pain to a "bearable" level. Discontinued Tylenol given she is tylenol included in Percocet and has mild transaminitis. Will attempt Gabapentin or Tramadol for pain control if patient allows. Patient allows for Toradol, will attempt one time dose and see if NSAID prn helps with pain. 1) Intractable pain * Percocet 2 tab PO Q4h PRN severe pain * Percocet 1 tab PO Q4h PRN moderate pain * Patient refused Oxycodone ER 20mg PO Q 12 hours overnight. Allowed for this dose this morning. * s/p left ankle hardware removal POD2 * Podiatry (Dr. Kierra Leon) on board--> help appreciated 2) History of SLE * Prednisone 4mg PO Daily * Protonix 40mg PO daily for prophylaxis * Cellcept 250mg PO TID * Plaquenil 200mg PO BID * Patient advised at bedside this morning, to maintain follow-up with her independent consultant, Dr Orosco and to maintain opthalmologist follow-up given she is on Plaquenil. 3) Constipation * Ordered for bedside commode * Patient reports she has not had a bowel movement since Matthew * Patient ordered for Colace 100mg PO bid and dose of Miralax 4) Questionable hx of seizures * Seizure precautions * Patient reports when she last had seizure in 2010? she was febrile at that time, but was not recommended to be on medication to prevent seizure. Patient denies episodes of seizure since her febrile seizure in the past. 3) Prophylactic Measure * Protonix 40mg PO Daily for GI ppx * Heparin 5000U SC [id number] for DVT ppx * Zofran 4mg IV Q 6hours PRN for nausea * Physical therapy eval: TCU vs home with outpatient follow-up Disposition * patient is pending adequate pain control for discharge planning * pending bowel movement since last bowel movement was 5 days ago. * Possible discharge tomorrow to achieve pain control
[2016-09-20] MEDS ORDERED: Naproxen 275 mg Tab PO SCH (18:00)
[2016-09-21 06:29] LABS: BASO % 0.5 % (0.0-2.0); EOS % 0.6 % (0.0-4.0); HEMATOCRIT 36.5 % (34.0-47.0); LYMPH # 1.2 K/uL (1.0-4.3); LYMPH % 18.8 % (20.0-40.0); MEAN CELL VOLUME 91.7 fL (81.0-99.0); MEAN CORPUSCULAR HEMOGLOBIN 30.1 pg (27.0-31.0); MEAN CORPUSCULAR HGB CONC 32.8 g/dL (33.0-37.0); MEAN PLATELET VOLUME 7.4 fL (7.2-11.7); MONO # 0.9 K/uL (0.0-0.8); MONO % 13.6 % (0.0-10.0); RED CELL DISTRIBUTION WIDTH 12.9 % (11.5-14.5); WHITE BLOOD COUNT 6.3 K/uL (4.8-10.8)
[2016-09-21 06:47] LABS: CHLORIDE 99 mmol/L (98-107)
[2016-09-21 06:48] LABS: POTASSIUM 3.8 mmol/L (3.6-5.2); SODIUM 135 mmol/L (132-148)
[2016-09-21 06:50] LABS: ALB/GLOB RATIO 1.2 (1.0-2.1); AST/SGOT 28 U/L (14-36); BILIRUBIN,TOTAL 0.6 mg/dL (0.2-1.3); CARBON DIOXIDE 22 mmol/L (22-30); GFR AFRICAN-AMERICAN > 60; TOTAL PROTEIN 6.8 g/dL (6.3-8.3)
[2016-09-21 06:51] LABS: ALKALINE PHOSPHATASE 80 U/L (38-126); ALT/SGPT 55 U/L (9-52); BLOOD UREA NITROGEN 11 mg/dL (7-17); GLUCOSE,RANDOM 81 mg/dL (65-105); MAGNESIUM 1.9 mg/dL (1.6-2.3); PHOSPHOROUS 4.4 mg/dL (2.5-4.5)
[2016-09-21] MEDS ORDERED: Magnesium Hydroxide Susp 30 ml UD PO ONE (10:15)
[2016-09-21] MEDS: Pantoprazole 40 mg EC Tab PO SCH (10:32)
--- NOTE | 2016-09-21 10:46 | CP.PCM.PN ---
Subjective - Date & Time of Evaluation Date of Evaluation: 09/21/16 Time of Evaluation: 10:30 - Subjective Subjective: Patient seen and evaluated at bedside this morning. Patient in NAD. States the pain continues to be intermittent in her Left lower extremity. Complains of mild nausea, denies any further episodes of vomiting. Denies any fever or chills. No other pedal complaints reported at this time. Objective - Vital Signs/Intake and Output Vital Signs (last 24 hours): Temp Pulse Resp BP Pulse Ox 98.1 F 79 17 121/80 100 09/21/16 07:00 09/21/16 07:00 09/21/16 07:00 09/21/16 07:00 09/21/16 07:00 Intake and Output: 09/21/16 09/21/16 06:59 18:59 Intake Total 110 Output Total 700 Balance -590 - Medications Medications: Current Medications Albuterol (Ventolin Hfa 90 Mcg/Actuation (8 G)) 1 puff INH RBID PRN PRN Reason: Wheezing Docusate Sodium (Colace) 100 mg PO BID [facility] Last Admin: 09/20/16 19:05 Dose: 100 mg Ferrous Sulfate (Feosol) 325 mg PO DAILY [facility] Last Admin: 09/21/16 10:32 Dose: 325 mg Heparin Sodium (Porcine) (Heparin) 5,000 units SC Q8 [facility] Last Admin: 09/21/16 05:52 Dose: 5,000 units Hydroxychloroquine Sulfate (Plaquenil) 200 mg PO BID [facility] Last Admin: 09/21/16 10:33 Dose: 200 mg Mycophenolate Mofetil (Cellcept Cap) 250 mg PO TID [facility] Last Admin: 09/21/16 10:33 Dose: 250 mg Ondansetron HCl (Zofran Inj) 4 mg IVP Q6 PRN PRN Reason: Nausea/Vomiting Last Admin: 09/19/16 18:10 Dose: 4 mg Pantoprazole Sodium (Protonix Ec Tab) 40 mg PO DAILY [facility] Last Admin: 09/21/16 10:32 Dose: 40 mg Prednisone (Prednisone Tab) 4 mg PO DAILY [facility] Last Admin: 09/21/16 10:33 Dose: 4 mg Tramadol HCl (Ultram) 50 mg PO TID PRN PRN Reason: Pain, severe (8-10) Last Admin: 09/21/16 01:19 Dose: 50 mg - Labs Labs: 09/21/16 06:14 09/21/16 06:14 - Constitutional Appears: Non-toxic, No Acute Distress - Neurological Exam Neurological Exam: Alert, Awake, Oriented x3 - Additional Findings Additional findings: Left lower extremity: Posterior splint appears to be C/D/I Normal capillary fill time noted to all 5 digits Normal color noted to all distal pulps of digits Patient is able to wiggle all 5 toes without difficulty LLE is elevated Assessment and Plan - Assessment and Plan (Free Text) Assessment: 25 y/o female 3 days s/p Left ankle removal of painful retained hardware Plan: Patient seen and evaluated at bedside Discussed patient in detail with attending, Dr. Leon Labs and vitals reviewed: no leukocytosis; afebrile LLE dressings and posterior splint kept intact Continue ice (behind left knee) and elevation with 3 pillows under Left ankle- while in the hospital and at home upon discharge Patient to continue remaining NWB to the Left lower extremity with crutches Patient's pain is now intermittent and under better control. From podiatric standpoint, patient is clear for discharge pending final PT evaluation Patient is to follow-up with Dr. Leon at the [facility] outpatient podiatry clinic upon discharge.
--- NOTE | 2016-09-21 14:24 | CP.PCM.PN ---
<Kenn Brown - Last Filed: 09/21/16 14:24> Subjective - Date & Time of Evaluation Date of Evaluation: 09/21/16 Time of Evaluation: 14:20 - Subjective Subjective: Medicine progress note. Attending: Dr. Christensen. Pt seen and examined at bedside. No acute distress. No events overnight. Pt pain better controlled, but still no BM. Will give lactulose in afternoon. Pt is cleared by podiatry. Objective - Vital Signs/Intake and Output Vital Signs (last 24 hours): Temp Pulse Resp BP Pulse Ox 98.1 F 79 17 121/80 100 09/21/16 07:00 09/21/16 07:00 09/21/16 07:00 09/21/16 07:00 09/21/16 07:00 Intake and Output: 09/21/16 09/21/16 06:59 18:59 Intake Total 110 Output Total 700 Balance -590 - Medications Medications: Current Medications Albuterol (Ventolin Hfa 90 Mcg/Actuation (8 G)) 1 puff INH RBID PRN PRN Reason: Wheezing Docusate Sodium (Colace) 100 mg PO BID [facility] Last Admin: 09/20/16 19:05 Dose: 100 mg Ferrous Sulfate (Feosol) 325 mg PO DAILY [facility] Last Admin: 09/21/16 10:32 Dose: 325 mg Heparin Sodium (Porcine) (Heparin) 5,000 units SC Q8 [facility] Last Admin: 09/21/16 05:52 Dose: 5,000 units Hydroxychloroquine Sulfate (Plaquenil) 200 mg PO BID [facility] Last Admin: 09/21/16 10:33 Dose: 200 mg Mycophenolate Mofetil (Cellcept Cap) 250 mg PO TID [facility] Last Admin: 09/21/16 10:33 Dose: 250 mg Ondansetron HCl (Zofran Inj) 4 mg IVP Q6 PRN PRN Reason: Nausea/Vomiting Last Admin: 09/19/16 18:10 Dose: 4 mg Pantoprazole Sodium (Protonix Ec Tab) 40 mg PO DAILY [facility] Last Admin: 09/21/16 10:32 Dose: 40 mg Prednisone (Prednisone Tab) 4 mg PO DAILY [facility] Last Admin: 09/21/16 10:33 Dose: 4 mg Tramadol HCl (Ultram) 50 mg PO TID PRN PRN Reason: Pain, severe (8-10) Last Admin: 09/21/16 01:19 Dose: 50 mg - Labs Labs: 09/21/16 06:14 09/21/16 06:14 - Constitutional Appears: Non-toxic, No Acute Distress - Head Exam Head Exam: ATRAUMATIC, NORMAL INSPECTION, NORMOCEPHALIC - Eye Exam Eye Exam: EOMI - ENT Exam ENT Exam: Mucous Membranes Moist - Neck Exam Neck Exam: Full ROM, Normal Inspection - Respiratory Exam Respiratory Exam: NORMAL BREATHING PATTERN. absent: Respiratory Distress - Cardiovascular Exam Cardiovascular Exam: +S1, +S2 - GI/Abdominal Exam GI & Abdominal Exam: Soft, Normal Bowel Sounds. absent: Tenderness - Extremities Exam Additional comments: Splint left lower extremity, sensation, movement intact, dressing C/D/I. - Back Exam Back Exam: NORMAL INSPECTION - Neurological Exam Neurological Exam: Alert, Awake, Oriented x3 - Psychiatric Exam Psychiatric exam: Flat Affect - Skin Skin Exam: Dry, Intact, Normal Color, Warm Assessment and Plan - Assessment and Plan (Free Text) Assessment: 1) Intractable pain * tramadol 50 PO TID PRN * s/p left ankle hardware removal POD3 * motrin 600 mg PO q 6 hrs PRN * received toradol yesterday * Podiatry (Dr. Kierra Leon) on board--> help appreciated 2) History of SLE * Prednisone 4mg PO Daily * Protonix 40mg PO daily for prophylaxis * Cellcept 250mg PO TID * Plaquenil 200mg PO BID * Patient advised at bedside to maintain follow-up with her cook starch, Dr Orosco and to maintain opthalmologist follow-up given she is on Plaquenil. 3) Constipation * Ordered for bedside commode * Patient reports she has not had a bowel movement since Sunday * Patient ordered for Colace 100mg PO bid and dose of Miralax * will give dose of lactulose if still no BM by this afternoon 4) Questionable hx of seizures * Seizure precautions * Patient reports when she last had seizure in 2010? she was febrile at that time, but was not recommended to be on medication to prevent seizure. Patient denies episodes of seizure since her febrile seizure in the past. 3) Prophylactic Measure * Protonix 40mg PO Daily for GI ppx * Heparin 5000U SC [id number] for DVT ppx * Zofran 4mg IV Q 6hours PRN for nausea * Physical therapy eval: TCU vs home with outpatient follow-up Disposition * patient is pending adequate pain control for discharge planning * pending bowel movement since last bowel movement was 6 days ago. * Cleared from podiatry POV * Discussed with Dr. Christensen. <FerminShawanda V - Last Filed: 09/21/16 22:01> Objective - Vital Signs/Intake and Output Vital Signs (last 24 hours): Temp Pulse Resp BP Pulse Ox 98.2 F 92 H 20 120/78 99 09/21/16 15:08 09/21/16 15:08 09/21/16 15:08 09/21/16 15:08 09/21/16 15:08 - Labs Labs: 09/21/16 06:14 09/21/16 06:14 Attending/Attestation - Attestation I have personally seen and examined this patient.: Yes I have fully participated in the care of the patient.: Yes I have reviewed all pertinent clinical information, including history, physical exam and plan: Yes Notes (Text): Patient seen, examined, and case discussed with day-time resident. This is a 25 yo female with PMHx HTN, SLE, prior history seizure (2010, febrile , not taking any medications currently) comes in for removal of left ankle hardware with associated intractable pain. Patient reports pain is better controlled with Toradol and Tramadol. Discontinue Oxycodone ER/Percocet. Reviewed [facility], patient last given prescription Tramdol in 03/2016-->upon discharge, patient to receive Tramadol 50mg PO QTID PRN severe pain (ten pills/ no refills). Patient given dose of milk of magnesia this morning and dose of Lactulose this afternoon. Patient recommended to take prune juice. Patient reporting flatus. Patient offer OMT (non-invasive therapy) to help facilitate bowel movement, risks and benefits explained, patient refused. 1) Intractable pain * s/p left ankle hardware removal POD3 * Podiatry (Dr. Kierra Leon) on board--> help appreciated * Discontinue Percocet/Oxycodone extended release * Colace 100mg PO bid * Tramadol 50mg PO tid PRN severe pain-->patient reporting pain relief; reviewed [employer] prior to provide prescription * Patient upon discharge given 2 week Naproxen 500mg PO bid to relieve inflammation * Discussed with podiatry, patient to follow-up outpatient 2) History of SLE * Prednisone 4mg PO Daily * Protonix 40mg PO daily for prophylaxis * Cellcept 250mg PO TID * Plaquenil 200mg PO BID * Patient advised at bedside this morning, to maintain follow-up with her cook starch, Dr Orosco and to maintain opthalmologist follow-up given she is on Plaquenil. Patient reminded today to follow-up with her cook starch and follow-up accordingly 3) Constipation * Patient reporting flatus * Patient given Milk of magnesia this morning and Lactulose this afternoon * Patient recommended for prune juice as well. 4) Questionable hx of seizures * Seizure precautions * Patient reports when she last had seizure in 2010? she was febrile at that time, but was not recommended to be on medication to prevent seizure. Patient denies episodes of seizure since her febrile seizure in the past. 3) Prophylactic Measure * Protonix 40mg PO Daily for GI ppx * Heparin 5000U SC A7corts for DVT ppx * Zofran 4mg IV Q 6hours PRN for nausea * Physical therapy eval: TCU vs home with outpatient follow-up-->patient provided script for outpatient physical therapy. Patient does not want TCU. Disposition * Patient reporting flatus. Discontinued narcotic medications. Patient is on stool softners and given dose of MOM in AM and Lactulose this afternoon. Patient also recommended for prune juice since she reports she does not like medications "she wants to do naturally" * Pain controlled.
[2016-09-21 16:18] VITALS: BP 120/78; PULSE 92; RESP 20; TEMP 98.2; O2SAT 99
--- NOTE | 2016-09-21 16:26 | CP.PCM.DIS ---
<Kenn Brown - Last Filed: 09/21/16 17:11> Provider - Provider Date of Admission: 09/20/16 22:50 Attending physician: Cedric Hatch MD Consults: Consults 1. Podiatry Time Spent in preparation of Discharge (in minutes): 45 Hospital Course - Lab Results Lab Results: Most Recent Lab Values WBC 6.3 K/uL (4.8-10.8) 09/21/16 06:14 RBC 3.98 Mil/uL (3.80-5.20) 09/21/16 06:14 Hgb 12.0 g/dL (11.0-16.0) 09/21/16 06:14 Hct 36.5 % (34.0-47.0) 09/21/16 06:14 MCV 91.7 fL (81.0-99.0) 09/21/16 06:14 MCH 30.1 pg (27.0-31.0) 09/21/16 06:14 MCHC 32.8 g/dL (33.0-37.0) L 09/21/16 06:14 RDW 12.9 % (11.5-14.5) 09/21/16 06:14 Plt Count 312 K/uL (130-400) 09/21/16 06:14 MPV 7.4 fL (7.2-11.7) 09/21/16 06:14 Neut % (Auto) 66.5 % (50.0-75.0) 09/21/16 06:14 Lymph % (Auto) 18.8 % (20.0-40.0) L 09/21/16 06:14 [place] % (Auto) 13.6 % (0.0-10.0) H 09/21/16 06:14 Eos % (Auto) 0.6 % (0.0-4.0) 09/21/16 06:14 Baso % (Auto) 0.5 % (0.0-2.0) 09/21/16 06:14 Neut # 4.2 K/uL (1.8-7.0) 09/21/16 06:14 Lymph # 1.2 K/uL (1.0-4.3) 09/21/16 06:14 [place] # 0.9 K/uL (0.0-0.8) H 09/21/16 06:14 Eos # 0.0 K/uL (0.0-0.7) 09/21/16 06:14 Baso # 0.0 K/uL (0.0-0.2) 09/21/16 06:14 Sodium 135 mmol/L (132-148) 09/21/16 06:14 Potassium 3.8 mmol/L (3.6-5.2) 09/21/16 06:14 Chloride 99 mmol/L (98-107) 09/21/16 06:14 Carbon Dioxide 22 mmol/L (22-30) 09/21/16 06:14 Anion Gap 18 (10-20) 09/21/16 06:14 BUN 11 mg/dL (7-17) 09/21/16 06:14 Creatinine 0.8 MG/DL (0.7-1.2) 09/21/16 06:14 Est GFR ( Amer) > 60 09/21/16 06:14 Est GFR (Non-Af Amer) > 60 09/21/16 06:14 Random Glucose 81 mg/dL (65-105) 09/21/16 06:14 Calcium 9.0 mg/dl (8.6-10.4) 09/21/16 06:14 Phosphorus 4.4 mg/dL (2.5-4.5) 09/21/16 06:14 Magnesium 1.9 mg/dL (1.6-2.3) 09/21/16 06:14 Total Bilirubin 0.6 mg/dL (0.2-1.3) 09/21/16 06:14 AST 28 U/L (14-36) 09/21/16 06:14 ALT 55 U/L (9-52) H 09/21/16 06:14 Alkaline Phosphatase 80 U/L (38-126) 09/21/16 06:14 Total Protein 6.8 g/dL (6.3-8.3) 09/21/16 06:14 Albumin 3.7 g/dL (3.5-5.0) 09/21/16 06:14 Globulin 3.1 gm/dL (2.2-3.9) 09/21/16 06:14 Albumin/Globulin Ratio 1.2 (1.0-2.1) 09/21/16 06:14 - Hospital Course Hospital Course: Admit date- 09/18/16 DC date- 09/21/16 Attending: Dr. Daugherty and Dr. Christensen Consults 1. Dr. Leon- Podiatry Discharge diagnoses 1. Post op pain 2. Iron deficiency anemia 3. Lupus 4. Constipation Procedures s/p left ankle hardware removal No complications HPI: see h/p Lab data: see lab sections Hospital course. Patient is a 25 year old female with past medical hx of hypertension (no longer on medication), hx of seizures (last 2010, no longer on medications), Lupus, joint degeneration that underwent left ankle hardware removal. Per the mother at bedside, the hardware was originally placed about 1 year ago for a severely degenerated joint due to being steroids for so long for her lupus. Patient was informed that the hardware may have been causing some of lupus flare ups. She was admitted to the hospital for intractable post operative pain. 1) Intractable pain * tramadol 50 PO TID PRN * s/p left ankle hardware removal POD3 * motrin 600 mg PO q 6 hrs PRN * received toradol yesterday * Podiatry (Dr. Kierra Leon) on board--> help appreciated * pt was initially treated with combination of percocet 5/325, dilaudid, morphine, tylenol; tylenol and percocet were stopped due to liver injury * pt was not experiencing complete relief and was not satisfied with dilaudid or morphine so those meds were discontinued 2) History of SLE * Prednisone 4mg PO Daily * Protonix 40mg PO daily for prophylaxis * Cellcept 250mg PO TID * Plaquenil 200mg PO BID * Patient advised at bedside to maintain follow-up with her group director experience, Dr Orosco and to maintain opthalmologist follow-up given she is on Plaquenil. 3) Constipation * Ordered for bedside commode * Patient reports she has not had a bowel movement since Sunday * Patient ordered for Colace 100mg PO bid and dose of Miralax * gave dose of lactulose since no BM by afternoon of 09/21 * pt still has not had B< 4) Questionable hx of seizures * Seizure precautions * Patient reports when she last had seizure in 2010? she was febrile at that time, but was not recommended to be on medication to prevent seizure. Patient denies episodes of seizure since her febrile seizure in the past. 5) Prophylactic Measure * Protonix 40mg PO Daily for GI ppx * Heparin 5000U SC G2deedl for DVT ppx * Zofran 4mg IV Q 6hours PRN for nausea * Physical therapy eval: TCU vs home with outpatient follow-up Discharge meds 1. feosol 325 mg PO daily 2. colace 100 mg po bid 3. plaquenil po 4. cellcept po 5. prednisone 4 mg po daily 6. naproxen 500 mg po bid for 2 addn weeks 7. tramadol 50 mg po tid (10 pills/no refills)>> PNP reviewed. last dose 2015. DC instructions Please discharge pt home. Pt to follow up with Dr. Leon in clinic downstairs in basement. Please return if condition worsens. - Date & Time of H&P Date of H&P: 09/18/16 Time of H&P: 18:52 Discharge Exam - Head Exam Head Exam: ATRAUMATIC, NORMAL INSPECTION, NORMOCEPHALIC - Eye Exam Eye Exam: EOMI - ENT Exam ENT Exam: Mucous Membranes Moist - Neck Exam Neck exam: Full Rom, Normal Inspection - Respiratory Exam Respiratory Exam: NORMAL BREATHING PATTERN, UNREMARKABLE - Cardiovascular Exam Cardiovascular Exam: +S1, +S2 - GI/Abdominal Exam GI & Abdominal Exam: Normal Bowel Sounds - Extremities Exam Additional comments: Splint left lower extremity, sensation, movement intact. - Neurological Exam Neurological exam: Alert, Oriented x3 - Psychiatric Exam Psychiatric exam: Flat Affect - Skin Skin Exam: Dry, Intact, Normal Color, Warm Discharge Plan - Discharge Medications Prescriptions: Docusate [Colace] 100 mg PO BID #30 cap Ferrous Sulfate [Feosol] 325 mg PO DAILY #30 tab Hydroxychloroquine Sulfate [Plaquenil] 200 mg PO BID #30 Mycophenolate [Cellcept Cap] 250 mg PO TID #90 Naproxen 500 mg PO BID PRN #28 tab PRN Reason: Pain, Moderate (4-7) predniSONE [predniSONE Tab] 4 mg PO DAILY #30 tab traMADol [Ultram] 50 mg PO TID PRN #10 tab PRN Reason: Pain, Severe (8-10) - Follow Up Plan Condition: STABLE Disposition: HOME/ ROUTINE Instructions: Hydroxychloroquine (By mouth), Iron Supplements (By mouth), Naproxen (By mouth), Prednisone (By mouth), Laxative, Stool Softeners (By mouth) , Tramadol (By mouth), Mycophenolate (By mouth), Constipation (DC), Crutch Instructions (DC), Hardware Removal (DC), Pain Management After Surgery (DC), RICE Therapy (GEN) Additional Instructions: Pt is to follow up with Dr. Leon in clinic in [facility] within 1 week. Please return if condition worsens. Please discharge on following medications Referrals: [facility] [Outside] Carly Leon DPM [Staff Provider] - <Shawanda Christensen V - Last Filed: 09/21/16 22:04> Provider - Provider Date of Admission: 09/20/16 22:50 Attending physician: Cedric Hatch MD Hospital Course - Lab Results Lab Results: Most Recent Lab Values WBC 6.3 K/uL (4.8-10.8) 09/21/16 06:14 RBC 3.98 Mil/uL (3.80-5.20) 09/21/16 06:14 Hgb 12.0 g/dL (11.0-16.0) 09/21/16 06:14 Hct 36.5 % (34.0-47.0) 09/21/16 06:14 MCV 91.7 fL (81.0-99.0) 09/21/16 06:14 MCH 30.1 pg (27.0-31.0) 09/21/16 06:14 MCHC 32.8 g/dL (33.0-37.0) L 09/21/16 06:14 RDW 12.9 % (11.5-14.5) 09/21/16 06:14 Plt Count 312 K/uL (130-400) 09/21/16 06:14 MPV 7.4 fL (7.2-11.7) 09/21/16 06:14 Neut % (Auto) 66.5 % (50.0-75.0) 09/21/16 06:14 Lymph % (Auto) 18.8 % (20.0-40.0) L 09/21/16 06:14 [place] % (Auto) 13.6 % (0.0-10.0) H 09/21/16 06:14 Eos % (Auto) 0.6 % (0.0-4.0) 09/21/16 06:14 Baso % (Auto) 0.5 % (0.0-2.0) 09/21/16 06:14 Neut # 4.2 K/uL (1.8-7.0) 09/21/16 06:14 Lymph # 1.2 K/uL (1.0-4.3) 09/21/16 06:14 [place] # 0.9 K/uL (0.0-0.8) H 09/21/16 06:14 Eos # 0.0 K/uL (0.0-0.7) 09/21/16 06:14 Baso # 0.0 K/uL (0.0-0.2) 09/21/16 06:14 Sodium 135 mmol/L (132-148) 09/21/16 06:14 Potassium 3.8 mmol/L (3.6-5.2) 09/21/16 06:14 Chloride 99 mmol/L (98-107) 09/21/16 06:14 Carbon Dioxide 22 mmol/L (22-30) 09/21/16 06:14 Anion Gap 18 (10-20) 09/21/16 06:14 BUN 11 mg/dL (7-17) 09/21/16 06:14 Creatinine 0.8 MG/DL (0.7-1.2) 09/21/16 06:14 Est GFR ( Amer) > 60 09/21/16 06:14 Est GFR (Non-Af Amer) > 60 09/21/16 06:14 Random Glucose 81 mg/dL (65-105) 09/21/16 06:14 Calcium 9.0 mg/dl (8.6-10.4) 09/21/16 06:14 Phosphorus 4.4 mg/dL (2.5-4.5) 09/21/16 06:14 Magnesium 1.9 mg/dL (1.6-2.3) 09/21/16 06:14 Total Bilirubin 0.6 mg/dL (0.2-1.3) 09/21/16 06:14 AST 28 U/L (14-36) 09/21/16 06:14 ALT 55 U/L (9-52) H 09/21/16 06:14 Alkaline Phosphatase 80 U/L (38-126) 09/21/16 06:14 Total Protein 6.8 g/dL (6.3-8.3) 09/21/16 06:14 Albumin 3.7 g/dL (3.5-5.0) 09/21/16 06:14 Globulin 3.1 gm/dL (2.2-3.9) 09/21/16 06:14 Albumin/Globulin Ratio 1.2 (1.0-2.1) 09/21/16 06:14 Attending/Attestation - Attestation I have personally seen and examined this patient.: Yes I have fully participated in the care of the patient.: Yes I have reviewed all pertinent clinical information, including history, physical exam and plan: Yes Notes (Text): Patient seen, examined, and case discussed with day-time resident. This is a 25 yo female with PMHx HTN, SLE, prior history seizure (2010, febrile , not taking any medications currently) comes in for removal of left ankle hardware with associated intractable pain. Patient reports pain is better controlled with Toradol and Tramadol. Discontinue Oxycodone ER/Percocet. Reviewed [facility], patient last given prescription Tramdol in 03/2016-->upon discharge, patient to receive Tramadol 50mg PO QTID PRN severe pain (ten pills/ no refills). Patient given dose of milk of magnesia this morning and dose of Lactulose this afternoon. Patient recommended to take prune juice. Patient reporting flatus. New prescriptions upon discharge: 1) Tramadol 50mg PO tid PRN severe pain (ten pills/zeo refills) 2) Naproxen 500mg PO bid (28/0 refills) Patient advised to follow-up with podiatry and PMD upon discharge from the hospital. 1) Intractable pain * s/p left ankle hardware removal POD3 * Podiatry (Dr. Kierra Leon) on board--> help appreciated * Discontinue Percocet/Oxycodone extended release * Colace 100mg PO bid * Tramadol 50mg PO tid PRN severe pain-->patient reporting pain relief; reviewed [facility] prior to provide prescription * Patient upon discharge given 2 week Naproxen 500mg PO bid to relieve inflammation * Discussed with podiatry, patient to follow-up outpatient 2) History of SLE * Prednisone 4mg PO Daily * Protonix 40mg PO daily for prophylaxis * Cellcept 250mg PO TID * Plaquenil 200mg PO BID * Patient advised at bedside this morning, to maintain follow-up with her group director experience, Dr Orosco and to maintain opthalmologist follow-up given she is on Plaquenil. Patient reminded today to follow-up with her group director experience and follow-up accordingly 3) Constipation * Patient reporting flatus * Patient given Milk of magnesia this morning and Lactulose this afternoon * Patient recommended for prune juice as well. 4) Questionable hx of seizures * Seizure precautions * Patient reports when she last had seizure in 2010? she was febrile at that time, but was not recommended to be on medication to prevent seizure. Patient denies episodes of seizure since her febrile seizure in the past. 3) Prophylactic Measure * Protonix 40mg PO Daily for GI ppx * Heparin 5000U SC [id number] for DVT ppx * Zofran 4mg IV Q 6hours PRN for nausea * Physical therapy eval: TCU vs home with outpatient follow-up-->patient provided script for outpatient physical therapy. Patient does not want TCU. Disposition * Patient reporting flatus. Discontinued narcotic medications. Patient is on stool softners and given dose of MOM in AM and Lactulose this afternoon. Patient also recommended for prune juice since she reports she does not like medications "she wants to do naturally" * Pain controlled
--- NOTE | 2016-09-26 07:33 | OP ---
PROCEDURE DATE: 09/18/2016 SURGEON: Carly Leon DPM. COAT IRONER HAND: Mil Souza DPM, PGY-2. BOMB SQUAD COMMANDER: Dr. Lisa. ANESTHESIA: General LMA with popliteal block. PREOPERATIVE DIAGNOSIS: Left ankle painful retained hardware. POSTOPERATIVE DIAGNOSIS: Left ankle painful retained hardware. NAME OF PROCEDURE: Left ankle removal of painful retained hardware. INDICATIONS: The patient is a 25-year-old female who had previously underwent a left tibial talocalc aneal arthrodesis with nail fixation in 10/2016. 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 She now pres ents with painful hardware to the left ankle. The patient has exhausted conservative treatment at is time and now requests surgical intervention. The patient signed the consent after careful explana tion of risks, benefits, complications, and alternatives for the surgical procedure. No guarantees w ere given nor implied. The patient received 2 grams of IV Ancef prior to the procedure. The patient 's n.p.o. status was confirmed prior to taking the patient to the OR. PREPARATION: The patient was brought to the operating room and placed on the operating room table in supine position. Time-out was performed for identification of the correct patient and the correct p rocedure. After induction of general anesthesia, a well-padded pneumatic thigh tourniquet was applie d to the patient's left thigh. The left lower extremity was then prepped and draped in usual sterile manner. Esmarch was utilized to exsanguinate the patient's left lower extremity. Pneumatic thigh t ourniquet was then inflated to 250 mmHg and the procedure began. PROCEDURE: First intraoperative fluoroscopy was used in order to visualize all the intact hardware. A tibial nail was noted to be intact with a proximal tibial screw and 3 screws in the calcaneus. An internal compression screw was also noted to be intact. All the screw positions and orientations we re accurately marked. Next, attention was directed to the posterior medial aspect of the heel where a screw prominence was palpated. This was the location of the most inferior calcaneal screw. An denys roximately 1 cm linear incision was created overlying the screw prominence at the posterior medial as pect of the heel. The incision was carried through the subcutaneous tissues using sharp and blunt di ssection. Care was taken to identify and retract all vital neurovascular structures. All bleeders w ere cauterized and ligated as necessary. Dissection was then bluntly carried down until the screw he ad was visualized. Using a combination of a Moclips elevator and a #15 blade, the screw head was freed of all of its soft tissue structures in order to remove it. Once adequately freed, a Star 25 pick up and delivery driver from the [employer] tray was now used to remove the screw. Once removed, the screw was examined closely and it was noted to be intact with no evidence of breakage. The screw was then passed from the operative field. The surgical wound was now irrigated with a copious amount of sterile normal sa line. The skin was now reapproximated and coapted using 4-0 nylon. Attention was now directed to the plantar aspect of the left heel to prepare for extraction of the in ternal compression screw. A healed surgical scar was noted in this area and the decision was made to go through the same previous incision. Using a fresh #15 blade, an approximately 3.5 cm linear long itudinal incision was created at the central aspect of the plantar heel. The incision was carried th rough the subcutaneous tissues using sharp and blunt dissection. Care was taken to identify and retr act all vital neurovascular structures. All bleeders were cauterized and ligated as necessary. Diss ection was now continued bluntly down to the level of the most distal aspect of the tibial nail. Car e was taken to minimize any disruption of the plantar fascia. Next, a 0.045 inch K-wire was now driv en through the central portion of the implant to verify the trajectory of the internal compression sc rew. This was confirmed using intraoperative fluoroscopy. At this time, the K-wire was then removed and using a 4.0 mm Hex pick up and delivery driver from the [employer] tray the internal compression screw was succes sfully removed and passed from the operative field. Next, attention was directed to the lateral aspect of the ankle. Using intraoperative fluoroscopy an d a periosteal elevator for reference, the approximate location of the transverse calcaneal screw was now determined and marked with a surgical marking pen. A 3 cm linear longitudinal incision was now created just distal to the lateral gutter of the ankle joint. The incision was carried through the s ubcutaneous tissues using sharp and blunt dissection. Care was taken to identify and retract all vit al neurovascular structures. All bleeders were cauterized and ligated as necessary. Dissection was now carried down bluntly until the head of the transverse calcaneal screw was identified. Using a co mbination of a Moclips elevator and a #15 blade, the screw head was freed of all its soft tissue struct ures in order to visualize it. Once adequately freed, a Star 25 pick up and delivery driver from the [employer] tray was not used to remove the screw. Once removed, the screw was closely examined and was noted to be i ntact with no evidence of breakage. The screw was then passed from the operative field. The surgica l wound was then irrigated with a copious amount of sterile normal saline. Deep soft tissue closure was now performed with 3-0 Vicryl. The subcutaneous tissues were now reapproximated and coapted usin g 4-0 Vicryl. The skin was then reapproximated and coapted using 4-0 nylon in a horizontal mattress suture technique. Attention was now directed to the posterior lateral aspect of the heel in preparation for the removal of the subtalar joint screw. Using intraoperative fluoroscopy and a periosteal elevator for referen ce the approximate location of the subtalar joint screw was now determined and marked with a surgical marking pen. Next, an approximately 1 cm incision was now created at the posterior lateral heel. T he incision was carried through the subcutaneous tissues using sharp and blunt dissection. Care was taken to identify and retract all vital neurovascular structures. All bleeders were cauterized and l igated as necessary. Dissection was then bluntly carried down until the screw head was visualized. Using a combination of a Moclips elevator and a #15 blade, the screw head was freed of all of its soft tissue structures in order to visualize it. Once adequately visualized, a Star 25 pick up and delivery driver from the [facility] [employer] tray was now used to remove the screw. Once removed the screw was examined closely and was noted to be intact with no evidence of breakage. The screw was then passed from the operative fi eld. The surgical wound was now irrigated with a copious amount of sterile normal saline. The skin was then reapproximated and coapted using 4-0 nylon. Attention was now redirected back to the incision site at the plantar central aspect of the heel. Th e incision was continued down bluntly until the distal most aspect of the tibial nail was adequately visualized. At this point, the Medley Valor nail extractor was obtained from the tray. The Valor na il extractor was then carefully attached to the distal aspect of the nail ensuring that it was correc tly engaged. Once this was done intraoperative fluoroscopy was used to myrtle the location of the prox imal tibial screw. Once identified an approximately 1.5 cm linear longitudinal incision was now crea amelia at the proximal medial aspect of the tibia overlying the location of the proximal screw. The inc ision was carried through the subcutaneous tissues using sharp and blunt dissection. Care was taken to identify and retract all vital neurovascular structures. All bleeders were cauterized and ligated as necessary. Dissection was then bluntly carried down until the screw head was visualized. Using a combination of a Moclips elevator and a #15 blade, the screw head was freed of all its soft tissue st ructures in order to help visualize it. Once adequately visualized a Star 25 pick up and delivery driver from the [employer] tray was now used to remove the screw. Once removed, the screw was examined closely and was noted to be intact with no evidence of breakage. The screw was then passed from the operative field. The surgical wound was now irrigated with a copious amount of sterile normal saline. The subcutane ous tissues were now reapproximated and coapted with 4-0 Vicryl. The skin was now reapproximated and coapted using 4-0 nylon in a horizontal mattress suture technique. Attention was now redirected back to the plantar heel incision site where the Valor nail extractor wa s attached. At this time the Valor nail SLAP hammer was obtained from the [employer] tray. This hammer was now used in a back-slapping motion against the Valor nail extractor in order to extract t he tibial nail. Once fully extracted the tibial nail was removed from the operative field. It was c losely examined and it was noted to be intact with no evidence of breakage. At this time final radio graphs were taken and it was confirmed that all hardware was successfully removed. A significant defect was noted within the intramedullary canal of the tibia the radiographs, th e decision was now made to back fill this void with a [employer] Pro-Dense bone graft. This bone graft was prepared at the back table as per package instructions. Once the graft was ready to be im planted approximately 15 mL of it was injected within the intramedullary canal of the tibia from the plantar incision site. This was done using fluoroscopic guidance and correct placement of the bone g raft was confirmed with increased radiodensity within the intramedullary canal. At this time, the pl fam heel incision site was irrigated with a copious amount of sterile normal saline. The subcutane ous tissues were now reapproximated and coapted using 4-0 Vicryl. The skin was then reapproximated a nd coapted using 4-0 nylon. At this time, 10 mL of 0.25% Marcaine plain was now used to block the saphenous nerve. All incision sites were now dressed with Betadine-soaked Adaptic, 4 x 4 gauze, multiple ABD pads and Kerlix. A we ll-padded posterior splint was now applied to the left lower extremity while maintaining the ankle at 90 degrees of dorsiflexion. The attending, Dr. Leon, was present throughout the entire case. POSTOPERATIVE CONDITION: The patient tolerated the anesthesia and procedure well and was escorted to the recovery room with vital signs stable and neurovascular status intact to the left lower extremit y. This patient was instructed to remain nonweightbearing to the left lower extremity with posterior splint and crutches. This patient is to follow up with Dr. Leon at the [facility] on an outpatient basis. Mil Souza DPM Carly Leon DPM cc: [id number] TT: 09/22/2016 22:50:29 [email or web address]
== END 2016-09-21 20:30 | disposition home or self-care (01) | DRG 218 ==
LOC: C.SDS 12:10 → C.9S 17:59 → C.6T 20:19 → OBSVTOIN 09-20 22:50
PROVIDERS: ADMIT Internal Medicine; ATTEND Internal Medicine
PROC: 0QUH0JZ Supplement Left Tibia with Synthetic Substitute, Open Approach (ICD-10-PCS; 2016-09-18)
PROC: 0YPB0JZ Removal of Synthetic Substitute from Left Lower Extremity, Open Approach (ICD-10-PCS; principal; 2016-09-18 13:30)
DX: T84.84XA Pain due to internal orthopedic prosthetic devices, implants and grafts, initial encounter (principal); M32.9 Systemic lupus erythematosus, unspecified; R56.9 Unspecified convulsions; I10 Essential (primary) hypertension; Y79.3 Surgical instruments, materials and orthopedic devices (including sutures) associated with adverse incidents; D50.9 Iron deficiency anemia, unspecified; Y83.1 Surgical operation with implant of artificial internal device as the cause of abnormal reaction of the patient, or of later complication, without mention of misadventure at the time of the procedure; K59.00 Constipation, unspecified; M19.072 Primary osteoarthritis, left ankle and foot; G89.18 Other acute postprocedural pain

== ENCOUNTER 2016-11-01 15:11 | Emergency (ER) | payer MEDICAID ==
[2016-11-01 15:12] VITALS: BMI 29.6
[2016-11-01 15:18] VITALS: RESP 20; O2SAT 99
[2016-11-01] MEDS ORDERED: Sodium Chloride 0.9% 1,000 ML IV ONE (15:54)
--- NOTE | 2016-11-01 15:54 | C.PDOC ---
History Of Present Illness 25 y/o female presents to the ED with complaints of left foot and ankle pain for the past several days, worsening yesterday. Pt has history of ankle fusion October 2015, with hardware removal August [address] Leon. Pt states she noticed discharge from the wound on the bottom of her foot yesterday and today. She called Dr Leon, who recommended she go to ED for Evaluation. Pt denies fever, sensory changes, new injuries, chest pain, SOB. Time Seen by Provider: 11/01/16 15:29 Chief Complaint (Nursing): Wound Check History Per: Patient History/Exam Limitations: no limitations Onset/Duration Of Symptoms: Hrs Current Symptoms Are (Timing): Still Present Quality Of Symptoms: Draining Severity: Mild Past Medical History Reviewed: Historical Data, Nursing Documentation, Vital Signs Vital Signs: Last Vital Signs Temp 98.1 F 11/01/16 18:04 Pulse 85 11/01/16 18:04 Resp 20 11/01/16 18:04 BP 120/75 11/01/16 18:04 Pulse Ox 99 11/01/16 18:04 - Medical History PMH: Arthritis, Asthma (never hospitalized), HTN (controlled no meds per pt), Peripheral Edema (FROM FRACTURE), Rheumatoid Arthritis (), Seizures ( febrile 2010 last) Surgical History: Endoscopy - [facility] Procedures FUSION OF LEFT ANKLE JOINT WITH INT FIX, OPEN APPROACH (11/08/15) INJECT/INFUSE NEC (03/22/14) REMOVAL OF SYNTH SUB FROM L LOW EXTREM, OPEN APPROACH (09/20/16) SUPPLEMENT LEFT TIBIA WITH SYNTH SUB, OPEN APPROACH (09/20/16) Family History: States: No Known Family Hx - Social History Hx Tobacco Use: No Hx Alcohol Use: No Hx Substance Use: No - Immunization History Hx Tetanus Toxoid Vaccination: Yes Hx Influenza Vaccination: Yes Hx Pneumococcal Vaccination: Yes Review Of Systems Except As Marked, All Systems Reviewed And Found Negative. Constitutional: Negative for: Fever, Chills Cardiovascular: Negative for: Chest Pain, Palpitations Respiratory: Negative for: Shortness of Breath Musculoskeletal: Positive for: Foot Pain (left) Skin: Positive for: Other (discharge from left foot wound) Neurological: Negative for: Weakness, Numbness Physical Exam - Physical Exam Appears: Well, Non-toxic, No Acute Distress, Other (us facies) Skin: Warm, Dry, No Rash Head: Normacephalic Oral Mucosa: Moist Cardiovascular: Rhythm Regular Respiratory: Normal Breath Sounds, No Rales, No Rhonchi, No Wheezing Extremity: Calf Tenderness (subjective, no swelling or erythema), Capillary Refill (<2 seconds all digits ), No Deformity, Swelling (left ankle with mild swelling, no erythema, nontender), Other (plantar aspect of left mid foot with 3 -4 cm healing wound, tender to palpation, no active discharge or surrounding erythema. Bilateral malleoli with well healed surgical scars.) Pulses: Left Dorsalis Pedis: Normal Neurological/Psych: Oriented x3, Normal Motor, Normal Sensation ED Course And Treatment - Laboratory Results Result Diagrams: 11/01/16 16:46 11/01/16 16:46 O2 Sat by Pulse Oximetry: 99 (room air) Pulse Ox Interpretation: Normal - CT Scan/US ankle Xray left Other Rad Studies (CT/US): Read By Radiologist, Radiology Report Reviewed CT/US Interpretation: Accession No. : [id number]. Patient Name / ID : ALEXYS ESCUDERO / [id number]. Exam Date : 11/01/2016 16:32:03 ( Approved ). Study Comment : Sex / Age : F / 25Y. Creator : Minoo Buchanan MD. Dictator : Minoo Buchanan MD. Professor Of Education : Advertising Inserter : Minoo Buchanan MD. Approver2 : Report Date : 11/01/2016 17:08:34. My Comment : . PROCEDURE: Left Ankle Radiographs. HISTORY: LEFT ANKLE PAIN. COMPARISON: Left ankle radiographs performed 09/18/16. FINDINGS: No acute displaced fracture or dislocation appreciated. 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 Progressive sclerosis or fusion. Foreshortened distal fibula possibly postoperative, similar in appearance to prior study. Marked soft tissue swelling. Calcification or ossification in the soft tissues adjacent to the distal 2/3 medial aspect tibia. IMPRESSION: Marked soft tissue swelling. No acute displaced fracture or dislocation appreciated. 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 Progressive sclerosis or fusion. Foreshortened distal fibula possibly postoperative, similar in appearance to prior study. Marked soft tissue swelling. Calcification or ossification in the soft tissues adjacent to the distal 2/3 medial aspect tibia. Progress Note: Plan: Blood work, Xray of left ankle, venous doppler ordered and reviewed. Podiatry resident Dr. Lance working with Dr. Leon evaluated patient at bedside & discussed patient with Dr. Leon. She recommends 1 dose IV zosyn in ED, PO Augmentin to go home with, and follow up with podiatry clinic at [facility] on Sunday. Venous doppler (-) for DVT, Xray (-) for fracturs/ dislocations. Reevaluation Time: 18:11 Reassessment Condition: Improved (On reassessment, patient reports improvement of pain. There is no active bleeding/discharge from foot. Patient given Rx for Augmentin (at podiatry's instruction), and pain medication, and she as instructed to follow up with podiatry clinic on Sunday without fail. She understands she should return to ED if symtoms worsen.) Disposition Counseled Patient/Family Regarding: Studies Performed, Diagnosis, Need For Followup, Rx Given - Disposition Referrals: Carly Leon DPM [Staff Provider] - Podiatry Clinic [Outside] Disposition: HOME/ ROUTINE Disposition Time: 18:15 Condition: STABLE Additional Instructions: FOLLOW UP WITH DR LEON IN PODIATRY CLINIC ON SUNDAY USE MEDICATIONS DIRECTED RETURN TO ER IF SYMPTOMS WORSEN Prescriptions: Acetaminophen with Codeine [Tylenol with Codeine #3 Tablet] 1 each PO Q6 PRN # 15 tablet PRN Reason: pain Amoxicillin/Clavulanate [Augmentin 875 MG-125 MG] 1 tab PO BID #14 tab Instructions: Arthralgia (ED), Swollen Joint (ED) Forms: Work Excuse Print Language: PORTUGUESE - POA Present On Arrival: None - Clinical Impression Clinical Impression: H/O ankle fusion, Postoperative pain - Scribe Statement The provider has reviewed the documentation as recorded by the Ashley Torres Provider Attestation: All medical record entries made by the Scribe were at my direction and personally dictated by me. I have reviewed the chart and agree that the record accurately reflects my personal performance of the history, physical exam, medical decision making, and the department course for this patient. I have also personally directed, reviewed, and agree with the discharge instructions and disposition.
--- NOTE | 2016-11-01 16:36 | CP.PCM.CON ---
History of Present Illness - History of Present Illness History of Present Illness: 25 y/o female seen at bedside in the ED with pmhx of Arthritis, Asthma, HTN, Rheumatoid Arthritis (SLE '), Seizures (febrile 2010 last), for painful left foot and ankle. Patient was sent by her clothing supervisor, Dr. Leon, after she noticed drainage, swelling and pain from her left foot. patient states that she had a left ankle fusion 11/12, and the hardware was removed in 09/13. Patient denies any recent trauma to the area. She denies standing on her feet for prolonged periods of time. Patient admits to severe pain in the bottom of her foot. She denies any other pedal complaints at this time. She denies n/f/v/c/d/ sob. Review of Systems - Constitutional Constitutional: As Per HPI Past Patient History - Infectious Disease Hx of Infectious Diseases: None - Tetanus Immunizations Tetanus Immunization: Unknown - Past Medical History & Family History Past Medical History?: Yes - Past Social History Smoking Status: Never Smoked - CARDIAC Hx Hypertension: Yes (controlled no meds per pt) Hx Peripheral Edema: Yes (FROM FRACTURE) - PULMONARY Hx Asthma: Yes (never hospitalized) - NEUROLOGICAL Hx Seizures: Yes (febrile 2010 last) - ENDOCRINE/METABOLIC Hx Endocrine Disorders: Yes Hx Systemic Lupus Erythematosus: Yes - HEMATOLOGICAL/ONCOLOGICAL Hx Blood Disorders: Yes Hx Blood Transfusions: Yes (2011) Hx Blood Transfusion Reaction: No - INTEGUMENTARY Hx Dermatological Problems: Yes (lupus rash neck) - MUSCULOSKELETAL/RHEUMATOLOGICAL Hx Arthritis: Yes Hx Rheumatoid Arthritis: Yes (SLE ') - GASTROINTESTINAL Hx Gastrointestinal Disorders: Yes Hx Gastroesophageal Reflux: Yes - PSYCHIATRIC Hx Substance Use: No - SURGICAL HISTORY Hx Surgeries: Yes Hx Joint Replacement: Yes (abiodun hip) Hx Orthopedic Surgery: Yes (fusion left ankle) - ANESTHESIA Hx Anesthesia: Yes Hx Anesthesia Reactions: No Hx Malignant Hyperthermia: No Meds Home Medications: Home Medication List Medication Instructions Recorded Confirmed Type Acetaminophen with Codeine 1 each PO Q6 PRN #15 tablet 11/01/16 Rx [Tylenol with Codeine #3 Tablet] Amoxicillin/Clavulanate [Augmentin 1 tab PO BID #14 tab 11/01/16 Rx 875 MG-125 MG] Allergies/Adverse Reactions: Allergies Allergy/AdvReac Type Severity Reaction Status Date / Time latex Allergy Intermediate RASH Verified 11/01/16 15:18 diphenhydramine HCl Allergy Mild RASH Verified 11/01/16 15:18 [From Benadryl] seafood Allergy Intermediate RASH Uncoded 11/01/16 15:18 - Medications Medications: Current Medications Sodium Chloride (Sodium Chloride 0.9%) 1,000 mls @ 1,000 mls/hr IV .Q1H ONE Stop: 11/01/16 16:53 Physical Exam - Constitutional Appears: Well, Non-toxic, No Acute Distress - Extremities Exam Additional comments: left lower extremity focused: vasc: palpable pedal pulses, TG wnl, CFT < 3 sec to all digits, localized edema to foot and ankle neuro: grossly intact derm: localized edema and erythema to plantar foot and ankle, no open lesions, surgical incision sites well coapted, skin sloughing noted to medial, lateral and plantar incision sites, no dehiscence, no purulence, no drainage, no bleeding, no fluctuance ortho: pain on palpation of plantar incision site - Neurological Exam Neurological exam: Alert, Oriented x3 - Psychiatric Exam Psychiatric exam: Normal Affect, Normal Mood Results - Vital Signs Recent Vital Signs: Last Vital Signs Temp 98 F 11/01/16 15:14 Pulse 101 H 11/01/16 15:14 Resp 20 11/01/16 15:14 BP 146/89 11/01/16 15:14 Pulse Ox 99 11/01/16 15:54 - Labs Result Diagrams: 11/01/16 16:46 11/01/16 16:46 Assessment & Plan - Assessment and Plan (Free Text) Assessment: 25 y/o female seen at bedside in the ED for left foot and ankle pain Plan: patient evaluated and chart reviewed discussed in detail with attending Dr. Leon labs and vitals reviewed; afebrile, WBC 7.5 duplex US negative for DVT Rx 1 dose of IV abx in ED Rx Augmentin 875mg PO BID x 10 days f/u in [facility] podiatry clinic on 11/06/[address] Leon
[2016-11-01 16:51] LABS: SQUAMOUS EPITHIAL 5 /hpf (0-5); URINE BILIRUBIN NEGATIVE (NEGATIVE); URINE BLOOD NEGATIVE (NEGATIVE); URINE CLARITY Clear (Clear); URINE COLOR Yellow (YELLOW); URINE GLUCOSE (UA) NORMAL (Normal); URINE LEUKOCYTE ESTERASE TRACE Leu/uL (Negative); URINE NITRATE NEGATIVE (NEGATIVE); URINE PROTEIN NEGATIVE (NEGATIVE); URINE UROBILINOGEN NORMAL mg/dL (0.2-1.0)
[2016-11-01 16:52] LABS: BASO % 0.1 % (0.0-2.0); EOS % 0.1 % (0.0-4.0); HEMOGLOBIN 12.4 g/dL (11.0-16.0); LYMPH # 0.4 K/uL (1.0-4.3); MEAN CELL VOLUME 91.1 fL (81.0-99.0); MEAN CORPUSCULAR HEMOGLOBIN 29.4 pg (27.0-31.0); MEAN CORPUSCULAR HGB CONC 32.3 g/dL (33.0-37.0); MEAN PLATELET VOLUME 7.7 fL (7.2-11.7); MONO # 0.3 K/uL (0.0-0.8); MONO % 3.3 % (0.0-10.0); NEUT # 6.8 K/uL (1.8-7.0); NEUT % 90.5 % (50.0-75.0); PLATELET COUNT 280 K/uL (130-400); RBC 4.22 Mil/uL (3.80-5.20); RED CELL DISTRIBUTION WIDTH 13.4 % (11.5-14.5); WHITE BLOOD COUNT 7.5 K/uL (4.8-10.8)
[2016-11-01 16:56] LABS: HCG,QUALITATIVE URINE NEGATIVE (NEGATIVE)
[2016-11-01 17:02] LABS: ALB/GLOB RATIO 1.1 (1.0-2.1); AST/SGOT 52 U/L (14-36); BLOOD UREA NITROGEN 14 mg/dL (7-17); GFR AFRICAN-AMERICAN > 60; GFR NON-AFRICAN AMERICAN > 60
[2016-11-01 17:03] LABS: ALT/SGPT 93 U/L (9-52); CALCIUM 9.8 mg/dl (8.6-10.4)
--- NOTE | 2016-11-01 17:10 | RAD ---
PROCEDURE: Left Ankle Radiographs. HISTORY: LEFT ANKLE PAIN COMPARISON: Left ankle radiographs performed 09/18/16 FINDINGS: No acute displaced fracture or dislocation appreciated. 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 Progressive sclerosis or fusion. Foreshortened distal fibula possibly postoperative, similar in appearance to prior study. Marked soft tissue swelling. Calcification or ossification in the soft tissues adjacent to the distal 2/3 medial aspect tibia. IMPRESSION: Marked soft tissue swelling. No acute displaced fracture or dislocation appreciated. 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 Progressive sclerosis or fusion. Foreshortened distal fibula possibly postoperative, similar in appearance to prior study. Marked soft tissue swelling. Calcification or ossification in the soft tissues adjacent to the distal 2/3 medial aspect tibia.
[2016-11-01] MEDS ORDERED: Piperacillin/Tazobact 3.375 gm 100 ML IV STA (17:19)
[2016-11-01] MEDS ORDERED: Piperacillin/Tazobact 3.375 gm 100 ML IVPB ONE (17:37)
[2016-11-01 17:51] LABS: PLATELET ESTIMATE NORMAL (NORMAL)
[2016-11-01 17:55] LABS: ANISOCYTOSIS SLIGHT; BANDS 1 % (0-2); HYPERSEGMENTATION PRESENT; LARGE PLATELETS PRESENT; LYMPHOCYTE 8 % (20-40); MONOCYTE 2 % (0-10); NEUTROPHIL 89 % (50-75); POIKILOCYTOSIS SLIGHT; POLYCHROMIC SLIGHT; SMUDGE CELLS PRESENT; TOTAL CELLS COUNTED 100
[2016-11-01 18:05] VITALS: BP 120/75; PULSE 85; TEMP 98.1
--- NOTE | 2016-11-02 13:26 | VASCLAB ---
PROCEDURE: Left Lower Extremity Venous Duplex Exam. HISTORY: LEG PAIN, R/O DVT PRIORS: None. TECHNIQUE: Left common femoral, femoral, popliteal and posterior tibial, peroneal and great saphenous veins were evaluated. Flow was assessed with color Doppler, compressibility, assessment of phasic flow and augmentation response. Report prepared by VIJAY Watkins, RVT FINDINGS: LEFT: 1. Common Femoral Vein: 1.1. Compressibility - Fully compressible: Thrombus - None : Flow - Phasic: Augmentation -Normal: Reflux - None. 2. Femoral Vein: 2.1. Compressibility - Fully compressible: Thrombus - None: Flow - Phasic: Augmentation -Normal: Reflux - None. 3. Popliteal Vein: 3.1. Compressibility - Fully compressible: Thrombus - None: Flow - Phasic: Augmentation -Normal: Reflux - None. 4. Posterior Tibial Vein: 4.1. Compressibility - Fully compressible: Thrombus - None: Flow - Phasic: Augmentation -Normal: Reflux - None. 5. Peroneal Vein: 5.1. Compressibility - Fully compressible: Thrombus - None: Flow - Phasic: Augmentation -Normal: Reflux - None. 6. Great Saphenous Vein: 6.1. Compressibility - Fully compressible: Thrombus - None: Flow - Phasic: Augmentation - Normal: Reflux - None. OTHER FINDINGS: IMPRESSION: No evidence of deep or superficial vein thrombosis of the left lower extremity with excellent venous flow. Normal valve function noted of the left side. Normal venous flow noted in the right common femoral vein.
== END 2016-11-01 18:13 | disposition home or self-care (01) ==
LOC: C.ER 15:11
DX: G89.18 Other acute postprocedural pain (principal)
CPT/HCPCS: 73610; 80053; 81001; 84703; 85025; 85651; 87040; 93971; 96365; 99284; J2543; J7040

== ENCOUNTER 2016-11-27 11:44 | Day surgery (SDC) | payer MEDICAID ==
[2016-11-27] MEDS ORDERED: Bacitracin 50,000 UNIT in Sodium Chloride 0.9% Irrig 1,000 ML IR SCH (12:25)
[2016-11-27] MEDS ORDERED: Bupivacaine HCl 0.5% PF (10 ml) Inj ONE (12:31)
[2016-11-27] MEDS ORDERED: ceFAZolin IV 1 gm in Dextrose 1 GM/50 ML BAG IVPB ONE (12:31)
[2016-11-27] MEDS ORDERED: Lidocaine 2% Inj (20ml) ONE (12:31)
[2016-11-27] MEDS ORDERED: Midazolam 2 MG/2 ML VIAL ONE (12:55)
[2016-11-27] MEDS ORDERED: Propofol 10 mg/ml Inj (20 ML) ONE (12:55)
[2016-11-27] MEDS ORDERED: Bacitracin 500 Units/gm Oint Foilpak UD ONE (13:47)
--- NOTE | 2016-11-27 13:55 | PCM.SURG1 ---
Surgeon's Initial Post Op Note - Surgeon's Notes Surgeon: Dr. Carly Leon, DPM [employer]rib Lead: Dr. Paul Luna DPM PGY-1, Dr. Beryl Lance DPM PGY-2 Type of Anesthesia: IV Sedation, Local Anesthesia Administered By: Dr. Arriaga Pre-Operative Diagnosis: left non-healing wound Operative Findings: see dictation; materials: 3-0 nylon, injectionables: 11 cc of 1:1 2% lidocaine plain and .5% marcaine plain; postoperative injection 10 cc of .5% marcaine plain and 5cc of 2% lidocaine plain Post-Operative Diagnosis: left ankle non healing wound and left plantar foot superficial abscess Operation Performed: incision and drainage of left foot and ankle Specimen/Specimens Removed: none Estimated Blood Loss: EBL {In ML}: 5 Blood Products Given: N/A Drains Used: No Drains Post-Op Condition: Good Date of Surgery/Procedure: 11/27/16 Time of Surgery/Procedure: 12:45
[2016-11-27] MEDS ORDERED: Oxycodone/Acetaminophen 5/325 mg Tab PO PRN ×2 (13:59)
[2016-11-27] MEDS ORDERED: Lactated Ringer's 1,000 ML IV SCH (14:15)
[2016-11-27] MEDS: HYDROmorphone 0.5 mg/0.5 ml ISec IVP PRN ×3 (14:15→15:01)
--- NOTE | 2016-11-27 18:32 | CP.PCM.HP ---
<Ruby Malcolm - Last Filed: 11/27/16 18:48> History of Present Illness - History of Present Illness History of Present Illness: cc: "ankle pain" HPI: Patient is a 25 year old male with PMHx of hypertension (no longer on medication), hx of seizures (last 2011, no longer on medications), Lupus, joint degeneration that underwent left ankle hardware removal previously in August and today had an I/D of a non healing wound on the same ankle. She reports that her pain is 9/10 on the ankle. She states previously this month she thought it was infected and went to her PMD and podiatry and received antibiotics that she can' t remember the name. She stated the wound drained and the antibiotic did not help. She denies fever/chills. She admits to mild nausea after the surgery but was eating bread and drinking cheri garrison during the exam. She has not other complaints at this time. PMHx: Lupus, leg ulcer, HTN, seizures, joint degeneration PSHx: Left tibiotalocalcaneal fusion Meds: Vit D 2000 U daily, Ferrous sulfate 325mg PO BID, Plaquenil 200mg PO BID, prednisone 5mg PO daily, Cellcept 250mg PO BID Allergies: Benadryl, Seafood, Latex Fam hx: unknown Social hx: Denies hx of smoking, alcohol, drugs Present on Admission - Present on Admission Any Indicators Present on Admission: No Review of Systems - Constitutional Constitutional: absent: Chills, Fever - EENT Eyes: absent: Blurred Vision, Change in Vision Ears: absent: Dizziness - Cardiovascular Cardiovascular: absent: Chest Pain, Chest Pain at Rest - Respiratory Respiratory: absent: Cough, Dyspnea, Dyspnea on Exertion - Gastrointestinal Gastrointestinal: Nausea. absent: Abdominal Pain, Constipation, Cramping, Diarrhea, Vomiting - Musculoskeletal Musculoskeletal: Joint Swelling. absent: Numbness, Tingling Additional comments: LE L ankle pain - Neurological Neurological: absent: Numbness, Headaches, Weakness Past Patient History - Infectious Disease Hx of Infectious Diseases: None - Tetanus Immunizations Tetanus Immunization: Unknown - Past Medical History & Family History Past Medical History?: Yes - Past Social History Smoking Status: Never Smoked - CARDIAC Hx Cardiac Disorders: Yes Hx Hypertension: Yes (controlled no meds per pt) Hx Peripheral Edema: Yes (FROM FRACTURE) - PULMONARY Hx Respiratory Disorders: Yes Hx Asthma: Yes (never hospitalized) - NEUROLOGICAL Hx Neurological Disorder: Yes Hx Seizures: Yes (febrile 2010 last) - ENDOCRINE/METABOLIC Hx Endocrine Disorders: Yes Hx Systemic Lupus Erythematosus: Yes - HEMATOLOGICAL/ONCOLOGICAL Hx Blood Disorders: Yes Hx Blood Transfusions: Yes (2011) Hx Blood Transfusion Reaction: No - INTEGUMENTARY Hx Dermatological Problems: Yes (lupus rash neck) - MUSCULOSKELETAL/RHEUMATOLOGICAL Hx Musculoskeletal Disorders: Yes Hx Arthritis: Yes Hx Degenerative Joint Disease: Yes Hx Falls: No Hx Rheumatoid Arthritis: Yes (SLE ') - GASTROINTESTINAL Hx Gastrointestinal Disorders: Yes Hx Gastroesophageal Reflux: Yes - PSYCHIATRIC Hx Substance Use: No - SURGICAL HISTORY Hx Surgeries: Yes Hx Joint Replacement: Yes (abiodun hip) Hx Orthopedic Surgery: Yes (fusion left ankle) - ANESTHESIA Hx Anesthesia: Yes Hx Anesthesia Reactions: No Hx Malignant Hyperthermia: No Meds Allergies/Adverse Reactions: Allergies Allergy/AdvReac Type Severity Reaction Status Date / Time latex Allergy Intermediate RASH Verified 11/01/16 15:18 diphenhydramine HCl Allergy Mild RASH Verified 11/01/16 15:18 [From Benadryl] seafood Allergy Intermediate RASH Uncoded 11/01/16 15:18 Physical Exam - Constitutional Appears: Non-toxic, No Acute Distress - Head Exam Head Exam: ATRAUMATIC, NORMAL INSPECTION - Eye Exam Eye Exam: EOMI, Normal appearance, PERRL Pupil Exam: NORMAL ACCOMODATION - ENT Exam ENT Exam: Mucous Membranes Dry - Respiratory Exam Respiratory Exam: Clear to Auscultation Bilateral, NORMAL BREATHING PATTERN. absent: Respiratory Distress - Cardiovascular Exam Cardiovascular Exam: REGULAR RHYTHM, +S1, +S2 - GI/Abdominal Exam GI & Abdominal Exam: Normal Bowel Sounds, Soft. absent: Distended, Firm, Guarding, Tenderness - Extremities Exam Extremities exam: Positive for: calf tenderness, normal inspection Additional comments: L ankle dressing in place c/d/i, toes moving, foot warm, tender to touch front of plascencia, non tender calf, sensation in tact moving all extremities, mild edema, no calf tenderness - Back Exam Back exam: NORMAL INSPECTION. absent: CVA tenderness (L), CVA tenderness (R), paraspinal tenderness - Neurological Exam Neurological exam: Alert, CN II-XII Intact, Oriented x3 - Psychiatric Exam Psychiatric exam: Anxious, Normal Affect, Normal Mood - Skin Skin Exam: Dry, Normal Color, Warm Results - Vital Signs Recent Vital Signs: Last Vital Signs Temp 97 F L 11/27/16 15:15 Pulse 72 11/27/16 15:15 Resp 18 11/27/16 15:15 BP 116/60 11/27/16 15:15 Pulse Ox 96 11/27/16 15:15 Assessment & Plan - Assessment and Plan (Free Text) Assessment: LE L ankle wound S/P wound ID today with Dr. Leon Tylenol 650mg PO Q6 prn Oxycodone tab PO Q4 prn moderate pain and 2 tabs PO Q4 prn severe pain f/u am labs Zofran prn nausea Lupus Continue home meds: Cellcept, Plaquenil BID Prednisone 5mg PO daily Will hold heparin due to s/p surgery today per podiatry Pepcid 20mg PO daily Ferrous Sulfate 325mg PO BID LR at 150cc/hour Regular diet <Cedric Hatch - Last Filed: 11/28/16 15:56> Results - Vital Signs Recent Vital Signs: Last Vital Signs Temp 97.6 F 11/28/16 07:39 Pulse 72 11/28/16 07:39 Resp 20 11/28/16 07:39 BP 119/74 11/28/16 07:39 Pulse Ox 100 11/28/16 07:39 - Labs Result Diagrams: 11/28/16 07:33 11/28/16 07:33 Labs: Laboratory Results - last 24 hr 11/28/16 11/28/16 07:33 07:33 WBC 4.3 L RBC 4.13 Hgb 12.2 Hct 37.5 MCV 90.9 MCH 29.5 MCHC 32.5 L RDW 13.4 Plt Count 214 MPV 7.9 Neut % (Auto) 59.4 Lymph % (Auto) 26.5 [place] % (Auto) 12.2 H Eos % (Auto) 0.7 Baso % (Auto) 1.2 Neut # 2.6 Lymph # 1.1 [place] # 0.5 Eos # 0.0 Baso # 0.1 Sodium 137 Potassium 3.5 L Chloride 102 Carbon Dioxide 24 Anion Gap 15 BUN 10 Creatinine 0.7 Est GFR ( Amer) > 60 Est GFR (Non-Af Amer) > 60 Random Glucose 65 Calcium 8.8 Total Bilirubin 0.5 AST 49 H ALT 84 H Alkaline Phosphatase 76 Total Protein 6.3 Albumin 3.3 L Globulin 3.0 Albumin/Globulin Ratio 1.1 Attending/Attestation - Attestation I have personally seen and examined this patient.: Yes I have fully participated in the care of the patient.: Yes I have reviewed all pertinent clinical information: Yes Notes (Text): 11/28/16 15:55 Patient was seen and examined at bedside. Status post incision and drainage of the foot wound Patient to be admitted overnight for pain control as per the request of podiatry I have discussed the plan of care with the resident and agree with the assessment and documented by the resident.
[2016-11-28 00:48] VITALS: RESP 20
[2016-11-28 07:40] LABS: BASO # 0.1 K/uL (0.0-0.2); BASO % 1.2 % (0.0-2.0); EOS % 0.7 % (0.0-4.0); HEMOGLOBIN 12.2 g/dL (11.0-16.0); LYMPH # 1.1 K/uL (1.0-4.3); LYMPH % 26.5 % (20.0-40.0); MEAN CELL VOLUME 90.9 fL (81.0-99.0); MEAN CORPUSCULAR HEMOGLOBIN 29.5 pg (27.0-31.0); MEAN CORPUSCULAR HGB CONC 32.5 g/dL (33.0-37.0); MEAN PLATELET VOLUME 7.9 fL (7.2-11.7); MONO # 0.5 K/uL (0.0-0.8); MONO % 12.2 % (0.0-10.0); NEUT # 2.6 K/uL (1.8-7.0); NEUT % 59.4 % (50.0-75.0); NRBC % 0.2 % (0.0-2.0); RBC 4.13 Mil/uL (3.80-5.20); RED CELL DISTRIBUTION WIDTH 13.4 % (11.5-14.5); WHITE BLOOD COUNT 4.3 K/uL (4.8-10.8)
[2016-11-28 07:42] VITALS: BP 119/74; PULSE 72; TEMP 97.6; O2SAT 100
[2016-11-28 07:44] LABS: ALBUMIN 3.3 g/dL (3.5-5.0)
[2016-11-28 07:47] LABS: ALB/GLOB RATIO 1.1 (1.0-2.1); AST/SGOT 49 U/L (14-36); GFR AFRICAN-AMERICAN > 60; GFR NON-AFRICAN AMERICAN > 60
[2016-11-28 07:48] LABS: ALT/SGPT 84 U/L (9-52); BLOOD UREA NITROGEN 10 mg/dL (7-17); CALCIUM 8.8 mg/dl (8.6-10.4)
--- NOTE | 2016-11-28 08:45 | RAD ---
PROCEDURE: Radiographs of the left tibia and fibula. HISTORY: s/p left leg surgery COMPARISON: Left ankle 11/01/2016. TECHNIQUE: Frontal and lateral views obtained. FINDINGS: BONES: Mixed sclerotic and radiolucent mineralization distal femoral condyles partially appreciated -infarcts here not excluded. Residual horizontal transfixation screw placement distal tibial shaft similar-appearing no interval fracture here suggested parallel thin extraosseous calcification versus periosteal reaction borders is site a amorphous flocculent like calcification ossification medial lower leg soft tissues. Myositis ossifications- under chronic osteomyelitis changes are some considerations. Here correlate clinically there is mottled soft tissue density here noted if there is any concern for any focal soft tissue infection, consider MRI of the left lower extremity Tibiotalar-calcaneal a Morpheus fusion with coalescing radiolucencies and bordering ossific debris. Distal fibular partial amputation as before Soft tissue swelling about the medial an lateral ankle is less than that from 11/01/2016. 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 No pathological fracture appreciated. No comparison studies to assess its stability. The distal medial extraosseous soft tissue changes calcification ossification bordering the horizontal fixation screw track are renoted - myositis ossifications and/or chronic osteomyelitis here are some considerations. Correlate clinically. If further evaluation is needed consider MRI of the lower leg without with contrast enhancement.
--- NOTE | 2016-11-28 09:26 | CP.PCM.CON ---
History of Present Illness - History of Present Illness History of Present Illness: 25 year old female with PMHx including lupus, arthritis, HTN was seen at bedside this morning 1 day s/p left leg wound debridement. Patient in NAD. States the pain continues to be intermittent in her Left lower extremity. Denies any n/v/f/c/sob/cp. Past Patient History - Infectious Disease Hx of Infectious Diseases: None - Tetanus Immunizations Tetanus Immunization: Unknown - Past Medical History & Family History Past Medical History?: Yes - Past Social History Smoking Status: Never Smoked - CARDIAC Hx Cardiac Disorders: Yes Hx Hypertension: Yes (controlled no meds per pt) Hx Peripheral Edema: Yes (FROM FRACTURE) - PULMONARY Hx Respiratory Disorders: Yes Hx Asthma: Yes (never hospitalized) - NEUROLOGICAL Hx Neurological Disorder: Yes Hx Seizures: Yes (febrile 2010 last) - ENDOCRINE/METABOLIC Hx Endocrine Disorders: Yes Hx Systemic Lupus Erythematosus: Yes - HEMATOLOGICAL/ONCOLOGICAL Hx Blood Disorders: Yes Hx Blood Transfusions: Yes (2011) Hx Blood Transfusion Reaction: No - INTEGUMENTARY Hx Dermatological Problems: Yes (lupus rash neck) - MUSCULOSKELETAL/RHEUMATOLOGICAL Hx Musculoskeletal Disorders: Yes Hx Arthritis: Yes Hx Degenerative Joint Disease: Yes Hx Falls: No Hx Rheumatoid Arthritis: Yes (SLE '05) - GASTROINTESTINAL Hx Gastrointestinal Disorders: Yes Hx Gastroesophageal Reflux: Yes - PSYCHIATRIC Hx Substance Use: No - SURGICAL HISTORY Hx Surgeries: Yes Hx Joint Replacement: Yes (abiodun hip) Hx Orthopedic Surgery: Yes (fusion left ankle) - ANESTHESIA Hx Anesthesia: Yes Hx Anesthesia Reactions: No Hx Malignant Hyperthermia: No Meds Allergies/Adverse Reactions: Allergies Allergy/AdvReac Type Severity Reaction Status Date / Time latex Allergy Intermediate RASH Verified 11/01/16 15:18 diphenhydramine HCl Allergy Mild RASH Verified 11/01/16 15:18 [From Benadryl] seafood Allergy Intermediate RASH Uncoded 11/01/16 15:18 - Medications Medications: Current Medications Acetaminophen (Tylenol 325mg Tab) 650 mg PO Q6 PRN PRN Reason: Pain, Mild (1-3) Famotidine (Pepcid) 20 mg PO BID SOLE Ferrous Sulfate (Feosol) 325 mg PO DAILY SOLE Hydroxychloroquine Sulfate (Plaquenil) 200 mg PO BID SOLE Mycophenolate Mofetil (Cellcept Cap) 250 mg PO BID SOLE Ondansetron HCl (Zofran Tab) 4 mg PO Q6 PRN PRN Reason: nausea Oxycodone/Acetaminophen (Percocet 5/325 Mg Tab) 1 tab PO Q4H PRN PRN Reason: Pain, moderate (4-7) Stop: 11/30/16 14:00 Oxycodone/Acetaminophen (Percocet 5/325 Mg Tab) 2 tab PO Q4H PRN PRN Reason: Pain, severe (8-10) Stop: 11/30/16 14:00 Last Admin: 11/27/16 20:30 Dose: 2 tab Prednisone (Prednisone Tab) 5 mg PO DAILY SOLE Physical Exam - Constitutional Appears: Non-toxic, No Acute Distress - Extremities Exam Additional comments: dressing clean, dry, intact to left leg - Neurological Exam Neurological exam: Alert, Oriented x3 - Psychiatric Exam Psychiatric exam: Normal Affect, Normal Mood Results - Vital Signs Recent Vital Signs: Last Vital Signs Temp 97.6 F 11/28/16 07:39 Pulse 72 11/28/16 07:39 Resp 20 11/28/16 07:39 BP 119/74 11/28/16 07:39 Pulse Ox 100 11/28/16 07:39 - Labs Result Diagrams: 11/28/16 07:33 11/28/16 07:33 Labs: Laboratory Results - last 24 hr 11/28/16 11/28/16 07:33 07:33 WBC 4.3 L RBC 4.13 Hgb 12.2 Hct 37.5 MCV 90.9 MCH 29.5 MCHC 32.5 L RDW 13.4 Plt Count 214 MPV 7.9 Neut % (Auto) 59.4 Lymph % (Auto) 26.5 [place] % (Auto) 12.2 H Eos % (Auto) 0.7 Baso % (Auto) 1.2 Neut # 2.6 Lymph # 1.1 [place] # 0.5 Eos # 0.0 Baso # 0.1 Sodium 137 Potassium 3.5 L Chloride 102 Carbon Dioxide 24 Anion Gap 15 BUN 10 Creatinine 0.7 Est GFR ( Amer) > 60 Est GFR (Non-Af Amer) > 60 Random Glucose 65 Calcium 8.8 Total Bilirubin 0.5 AST 49 H ALT 84 H Alkaline Phosphatase 76 Total Protein 6.3 Albumin 3.3 L Globulin 3.0 Albumin/Globulin Ratio 1.1 Assessment & Plan - Assessment and Plan (Free Text) Assessment: 25 year old female 1 day s/p left leg wound debridement Plan: Patient seen and evaluated at bedside Discussed patient in detail with attending, Dr. Leon Labs and vitals reviewed LLE dressings kept intact pt to keep dressing c/d/i unitil f/u From podiatric standpoint, patient is clear for discharge Patient is to follow-up with Dr. Leon at the [facility] outpatient podiatry clinic upon discharge.
[2016-11-28] MEDS: Potassium Chloride 20 mEq/15 ml LIQ UD PO ONE ×2 (10:41→10:50)
--- NOTE | 2016-11-28 12:53 | OP ---
PROCEDURE DATE: 11/27/2016 PREOPERATIVE DIAGNOSIS: Left ankle nonhealing wound POSTOPERATIVE DIAGNOSES: Left ankle nonhealing wound and left plantar foot superficial abscess. OPERATION PERFORMED: Incision and drainage of left foot and ankle. SURGEON: Carly Leon DPM ASSISTANTS: 1. Paul Luna DPM, PGY1 2. Beryl Lance DPM, PGY2 TYPE OF ANESTHESIA: IV sedation and local. ANESTHESIA ADMINISTERED BY: Chapito Arriaga DO INDICATIONS: The patient is a 25-year-old female who previously underwent left ankle removal of painful retained hardware on 09/18/2016. The patient has a nonhealing wound with wound dehiscence noted and 1 single simple suture intact centrally at the medial aspect of the lower leg. The patient has exhausted all conservative treatment at this time and now require surgical intervention. The patient signed the consent after careful explanation of risks, benefits, complications, and alternatives for surgical procedure. No guarantees were given nor applied. NPO status was confirmed prior taking to the patient to the OR. DESCRIPTION OF PROCEDURE: The patient was brought into the operating room and placed on the operating room table in a supine position. A time-out was performed for identification of the correct patient and procedure. After IV sedation is achieved the patient received a total of 11 mL of a 1:1 mixture of 2% lidocaine plain and 0.5% Marcaine plain in a V-Block fashion around the entire wound. Once the local anesthesia was achieved, the right foot was the prepped and draped in a normal sterile manner. No tourniquet was used during the procedure. Attention was then directed to the medial aspect of the lower left leg, where a nonhealing wound measuring approximately 0.5 cm x 0.5 cm x 0.1 cm with 1 suture intact centrally is present. Suture was cutout using Metzenbaum scissor and pickup. Then a 2 cm linear longitudinal incision was made over the wound using a #15-blade. The incision was carried through the subcutaneous tissue. A curve hemostat was then used next to open the surround soft tissue. There is approximately 3 mL of purulent drainage is present. At this time, small bone cement fragment was also expressed from the wound. Utilizing a curette bone cement fragments were removed from the wound surrounding soft tissue in tibial bone, deep to the wound. At this time, all nonviable tissue was removed using curette until healthy bleeding tissue is present. The wound was rinsed with copious amount of normal saline. A transposition flap was then marked in a standard fashion with the plane to allow skin and soft tissue to rotate into position and close the wound. Using a #15-blade a curve C-shaped incision was extended from both ends of the linear longitudinal incision to the level of subcutaneous tissue making a S-shape as a result in which the transposition flap was created. A hemostat was used next to open surrounding soft tissue. The first stitch was placed at the point of tension and secured with 3-0 nylon suture. The flap was rotated and advanced into position to cover the wound and tacked down with the use of 3-0 nylon in simple suture technique. A total of 10 mL of 0.5% Marcaine plain was injected around the surgical incision. Attention was then directed to the plantar left heel, where a superficial abscess is noted measuring approximately 1 cm x 1 cm x 0.1 cm. A 1 cm linear incision was made over the wound using a #15-blade. A curve hemostat was used next to open the surrounding soft tissue. There was approximately 2 cc of purulent drainage expressed from the wound. At this time using curette, all nonviable tissue was debrided until healthy epithelial skin is exposed. The wound is rinsed with copious amounts of normal saline. A total of 5 mL of 2% lidocaine plain is injected in a local block fashion around the plantar heel wound. All wounds were dressed with Xeroform, 4 x 4 gauze, True, Kerlix, and Micah to the lower left extremity while maintaining the angle at the 90 degrees of dorsiflexion. POSTOPERATIVE CONDITION: The patient tolerated the anesthesia and procedure well and was escorted to the recovery room with vital signs stable and neurovascular status intact to the lower extremity. This patient will be seen and followed by Dr. Leon in clinic upon discharge. Paul Luna DPM ARACELI
--- NOTE | 2016-11-28 13:14 | CP.PCM.DIS ---
<Kenn Castillo - Last Filed: 11/28/16 14:14> Provider - Provider Attending physician: Dr. Cedric Hatch M.D. Primary care physician: Unknown Consults: Podiatry - Dr. Leon Time Spent in preparation of Discharge (in minutes): 45 Diagnosis - Discharge Diagnosis (1) S/P foot surgery, left Status: Acute Comment: s/p I&D on 11/27/16. Patient is to follow up with Dr. Leon outpatient within 1 week. Rx written for Tramadol 50mg Q8H PRN #15 Hospital Course - Lab Results Lab Results: Most Recent Lab Values WBC 4.3 K/uL (4.8-10.8) L 11/28/16 07:33 RBC 4.13 Mil/uL (3.80-5.20) 11/28/16 07:33 Hgb 12.2 g/dL (11.0-16.0) 11/28/16 07:33 Hct 37.5 % (34.0-47.0) 11/28/16 07:33 MCV 90.9 fL (81.0-99.0) 11/28/16 07:33 MCH 29.5 pg (27.0-31.0) 11/28/16 07:33 MCHC 32.5 g/dL (33.0-37.0) L 11/28/16 07:33 RDW 13.4 % (11.5-14.5) 11/28/16 07:33 Plt Count 214 K/uL (130-400) 11/28/16 07:33 MPV 7.9 fL (7.2-11.7) 11/28/16 07:33 Neut % (Auto) 59.4 % (50.0-75.0) 11/28/16 07:33 Lymph % (Auto) 26.5 % (20.0-40.0) 11/28/16 07:33 [place] % (Auto) 12.2 % (0.0-10.0) H 11/28/16 07:33 Eos % (Auto) 0.7 % (0.0-4.0) 11/28/16 07:33 Baso % (Auto) 1.2 % (0.0-2.0) 11/28/16 07:33 Neut # 2.6 K/uL (1.8-7.0) 11/28/16 07:33 Lymph # 1.1 K/uL (1.0-4.3) 11/28/16 07:33 [place] # 0.5 K/uL (0.0-0.8) 11/28/16 07:33 Eos # 0.0 K/uL (0.0-0.7) 11/28/16 07:33 Baso # 0.1 K/uL (0.0-0.2) 11/28/16 07:33 Sodium 137 mmol/L (132-148) 11/28/16 07:33 Potassium 3.5 mmol/L (3.6-5.2) L 11/28/16 07:33 Chloride 102 mmol/L (98-107) 11/28/16 07:33 Carbon Dioxide 24 mmol/L (22-30) 11/28/16 07:33 Anion Gap 15 (10-20) 11/28/16 07:33 BUN 10 mg/dL (7-17) 11/28/16 07:33 Creatinine 0.7 MG/DL (0.7-1.2) 11/28/16 07:33 Est GFR ( Amer) > 60 11/28/16 07:33 Est GFR (Non-Af Amer) > 60 11/28/16 07:33 Random Glucose 65 mg/dL (65-105) 11/28/16 07:33 Calcium 8.8 mg/dl (8.6-10.4) 11/28/16 07:33 Total Bilirubin 0.5 mg/dL (0.2-1.3) 11/28/16 07:33 AST 49 U/L (14-36) H 11/28/16 07:33 ALT 84 U/L (9-52) H 11/28/16 07:33 Alkaline Phosphatase 76 U/L (38-126) 11/28/16 07:33 Total Protein 6.3 g/dL (6.3-8.3) 11/28/16 07:33 Albumin 3.3 g/dL (3.5-5.0) L 11/28/16 07:33 Globulin 3.0 gm/dL (2.2-3.9) 11/28/16 07:33 Albumin/Globulin Ratio 1.1 (1.0-2.1) 11/28/16 07:33 - Hospital Course Hospital Course: As per admission documentation: HPI: Patient is a 25 year old male with PMHx of hypertension (no longer on medication), hx of seizures (last 2011, no longer on medications), Lupus, joint degeneration that underwent left ankle hardware removal previously in August and today had an I/D of a non healing wound on the same ankle. She reports that her pain is 9/10 on the ankle. She states previously this month she thought it was infected and went to her PMD and podiatry and received antibiotics that she can' t remember the name. She stated the wound drained and the antibiotic did not help. She denies fever/chills. She admits to mild nausea after the surgery but was eating bread and drinking cheri garrison during the exam. She has not other complaints at this time. Patient was admitted to the hospital for I&D with Dr. Leon on 11/27/16 of a non -healing wound on the plantar aspect of her left foot. Patient was observed overnight and monitored. Patient was cleared by Podiatry to be discharged home. Patient was sent home with a prescription for Tramadol 50mg Q8H PRN #15 for pain control. Discharge Instructions: Please discharge patient home, as per Dr. Hatch. Patient is to continue medications as instructed. Patient is to follow up with her Primary Medical Doctor in 1 week. Patient is to follow up with Dr. Leon in 1 week. Patient is to follow up with Dr. Orosco in 1 week. If symptoms worsen , patient is to return to the hospital for further evaluation and treatment. Instructions were explained to the patient. Patient understands and agrees. Discharge medications: Tramadol 50 mg PO Q8H PRN #15 Continue Home Medications: Albuterol HFA BID Ferrous Sulfate 325mg PO daily Hydroxychloroquine 200 mg PO BID Cellcept Cap 250 mg PO TID Prednisone 4 mg PO Daily Discharge Exam - Head Exam Head Exam: ATRAUMATIC, NORMAL INSPECTION - ENT Exam ENT Exam: Mucous Membranes Moist - Respiratory Exam Respiratory Exam: Clear to PA & Lateral, NORMAL BREATHING PATTERN. absent: Accessory Muscle Use, Respiratory Distress - Cardiovascular Exam Cardiovascular Exam: REGULAR RHYTHM, +S1, +S2 - GI/Abdominal Exam GI & Abdominal Exam: Normal Bowel Sounds, Soft. absent: Distended, Firm, Guarding, Rigid, Tenderness - Extremities Exam Additional comments: Left LE edema s/p I&D POD1 to non-healing wound on plantar aspect of left foot. - Neurological Exam Neurological exam: Alert, Oriented x3 - Psychiatric Exam Psychiatric exam: Normal Affect, Normal Mood - Skin Skin Exam: Dry, Normal Color, Warm Discharge Plan - Discharge Medications Prescriptions: traMADol [Ultram] 50 mg PO Q8H PRN #15 tab PRN Reason: Pain, Severe (8-10) - Follow Up Plan Condition: GOOD Disposition: HOME/ ROUTINE Instructions: Tramadol (By mouth), Incision and Drainage (DC) Additional Instructions: Please discharge patient home, as per Dr. Hatch. Patient is to continue medications as instructed. Patient is to follow up with her Primary Medical Doctor in 1 week. Patient is to follow up with Dr. Leon in 1 week. Patient is to follow up with Dr. Orosco in 1 week. If symptoms worsen, patient is to return to the hospital for further evaluation and treatment. Instructions were explained to the patient. Patient understands and agrees. Discharge medications: Tramadol 50 mg PO Q8H PRN #15 Continue Home Medications: Albuterol HFA BID Ferrous Sulfate 325mg PO daily Hydroxychloroquine 200 mg PO BID Cellcept Cap 250 mg PO TID Prednisone 4 mg PO Daily Referrals: Carly Leon DPM [Staff Provider] - Mike Orosco MD [Staff Provider] - <Cedric Hatch - Last Filed: 11/28/16 17:59> Provider - Provider Attending physician: Carly Leon DPM Hospital Course - Lab Results Lab Results: Most Recent Lab Values WBC 4.3 K/uL (4.8-10.8) L 11/28/16 07:33 RBC 4.13 Mil/uL (3.80-5.20) 11/28/16 07:33 Hgb 12.2 g/dL (11.0-16.0) 11/28/16 07:33 Hct 37.5 % (34.0-47.0) 11/28/16 07:33 MCV 90.9 fL (81.0-99.0) 11/28/16 07:33 MCH 29.5 pg (27.0-31.0) 11/28/16 07:33 MCHC 32.5 g/dL (33.0-37.0) L 11/28/16 07:33 RDW 13.4 % (11.5-14.5) 11/28/16 07:33 Plt Count 214 K/uL (130-400) 11/28/16 07:33 MPV 7.9 fL (7.2-11.7) 11/28/16 07:33 Neut % (Auto) 59.4 % (50.0-75.0) 11/28/16 07:33 Lymph % (Auto) 26.5 % (20.0-40.0) 11/28/16 07:33 [place] % (Auto) 12.2 % (0.0-10.0) H 11/28/16 07:33 Eos % (Auto) 0.7 % (0.0-4.0) 11/28/16 07:33 Baso % (Auto) 1.2 % (0.0-2.0) 11/28/16 07:33 Neut # 2.6 K/uL (1.8-7.0) 11/28/16 07:33 Lymph # 1.1 K/uL (1.0-4.3) 11/28/16 07:33 [place] # 0.5 K/uL (0.0-0.8) 11/28/16 07:33 Eos # 0.0 K/uL (0.0-0.7) 11/28/16 07:33 Baso # 0.1 K/uL (0.0-0.2) 11/28/16 07:33 Sodium 137 mmol/L (132-148) 11/28/16 07:33 Potassium 3.5 mmol/L (3.6-5.2) L 11/28/16 07:33 Chloride 102 mmol/L (98-107) 11/28/16 07:33 Carbon Dioxide 24 mmol/L (22-30) 11/28/16 07:33 Anion Gap 15 (10-20) 11/28/16 07:33 BUN 10 mg/dL (7-17) 11/28/16 07:33 Creatinine 0.7 MG/DL (0.7-1.2) 11/28/16 07:33 Est GFR ( Amer) > 60 11/28/16 07:33 Est GFR (Non-Af Amer) > 60 11/28/16 07:33 Random Glucose 65 mg/dL (65-105) 11/28/16 07:33 Calcium 8.8 mg/dl (8.6-10.4) 11/28/16 07:33 Total Bilirubin 0.5 mg/dL (0.2-1.3) 11/28/16 07:33 AST 49 U/L (14-36) H 11/28/16 07:33 ALT 84 U/L (9-52) H 11/28/16 07:33 Alkaline Phosphatase 76 U/L (38-126) 11/28/16 07:33 Total Protein 6.3 g/dL (6.3-8.3) 11/28/16 07:33 Albumin 3.3 g/dL (3.5-5.0) L 11/28/16 07:33 Globulin 3.0 gm/dL (2.2-3.9) 11/28/16 07:33 Albumin/Globulin Ratio 1.1 (1.0-2.1) 11/28/16 07:33 Attending/Attestation - Attestation I have personally seen and examined this patient.: Yes I have fully participated in the care of the patient.: Yes I have reviewed all pertinent clinical information, including history, physical exam and plan: Yes Notes (Text): 11/28/16 17:58 Patient was seen and examined at bedside with the resident. Patient appears comfortable. We will discharge the patient to home as per the recommendation to podiatry. She will follow with podiatry and her licensed massage practitioner as outpatient Patient given prescription for pain medication for 5 days only. I agree with the discharge note by the resident.
== END 2016-11-28 15:30 | disposition home or self-care (01) ==
LOC: C.SDS 11:44 → C.3T 16:44 → C.9E 16:44 → C.3T 18:00 → C.SDS 11-28 15:30
PROVIDERS: ATTEND Podiatrist Foot & Ankle Surgery
DX: L97.322 Non-pressure chronic ulcer of left ankle with fat layer exposed (principal)
CPT/HCPCS: 27603; 36415; 73590; 80053; 85025; J0690; J1170; J2250; J2704; J3010; J7517

== ENCOUNTER 2017-01-30 15:08 | Emergency (ER) | payer MEDICAID ==
[2017-01-30 15:09] VITALS: BMI 29.6
[2017-01-30 15:26] VITALS: TEMP 97.8; O2SAT 97
--- NOTE | 2017-01-30 15:38 | C.PDOC ---
History Of Present Illness 26 y/o female presents to ED with complaints of new onset left ankle pain since this morning. Patient has Hx of left ankle fusion on October 2015 with hardware removal on August 2016 by preparation department supervisor Dr. Leon. Patient denies hx of chronic left ankle pain and currently has walking boot to right foot due to Fx. Patient states "I think it's hurting more because of the way I'm walking with the boot" . Patient reports limited relief with 800mg Motrin. No other complaints at this time. NEW ONSET L ANKLE PAIN SINCE THIS MORNING. history of L ankle fusion October 2015, with hardware removal August 2016 by preparation department supervisor Dr Leon. PT DENIES HO CHRONIC L ANKLE PAIN. CURRENTLY HAS WALKING BOOT R FOOT DUE TO FX, "I THINK IT'S HURTING MORE BC OF THE WAY IM WALKING W THE BOOT". LIMITED RELIEF W MOTRIN 800. DENIES HO pmhx of Arthritis, Asthma, HTN, Rheumatoid Arthritis (SLE '05), Seizures ( febrile 2010 last) Time Seen by Provider: 01/30/17 15:37 Chief Complaint (Nursing): Lower Extremity Problem/Injury History Per: Patient History/Exam Limitations: no limitations Onset/Duration Of Symptoms: Days Current Symptoms Are (Timing): Still Present Past Medical History Reviewed: Historical Data, Nursing Documentation, Vital Signs Vital Signs: Last Vital Signs Temp 97.8 F 01/30/17 15:23 Pulse 72 01/30/17 18:07 Resp 18 01/30/17 18:07 BP 118/65 01/30/17 18:07 Pulse Ox 97 01/30/17 18:07 - Medical History PMH: Arthritis, Asthma (never hospitalized), HTN (controlled no meds per pt), Peripheral Edema (FROM FRACTURE), Rheumatoid Arthritis (SLE '05), Seizures ( febrile 2010 last) Surgical History: Endoscopy - [facility] Procedures FUSION OF LEFT ANKLE JOINT WITH INT FIX, OPEN APPROACH (11/08/15) INJECT/INFUSE NEC (03/22/14) REMOVAL OF SYNTH SUB FROM L LOW EXTREM, OPEN APPROACH (09/20/16) SUPPLEMENT LEFT TIBIA WITH SYNTH SUB, OPEN APPROACH (09/20/16) Family History: States: No Known Family Hx - Social History Hx Tobacco Use: No Hx Alcohol Use: No Hx Substance Use: No - Immunization History Hx Tetanus Toxoid Vaccination: Yes Hx Influenza Vaccination: Yes Hx Pneumococcal Vaccination: Yes Review Of Systems Except As Marked, All Systems Reviewed And Found Negative. Musculoskeletal: Positive for: Foot Pain. Negative for: Back Pain Skin: Negative for: Rash, Bruising Neurological: Negative for: Weakness, Numbness Physical Exam - Physical Exam Appears: Non-toxic, No Acute Distress Skin: Normal Color, Warm, Dry, No Rash Head: Atraumatic, Normacephalic Eye(s): bilateral: Normal Inspection Oral Mucosa: Moist Neck: Normal ROM, Supple Chest: Symmetrical Extremity: Normal ROM, Capillary Refill (<2 seconds), Swelling (mild to lateral aspect of left ankle), Other (old scarring to left ankle) Pulses: Left Dorsalis Pedis: Normal, Right Dorsalis Pedis: Normal Neurological/Psych: Oriented x3, Normal Motor, Normal Sensation ED Course And Treatment O2 Sat by Pulse Oximetry: 97 (RA) Pulse Ox Interpretation: Normal - Other Rad L FOOT X-Ray: Interpreted by Me (NEG) L ANKLE X-Ray: Interpreted by Me (NO ACUTE FINDINGS) Progress - Re-Evaluation Re-evaluation Note: 01/30/17 15:47 D/W PODIATRY RESIDENT WILL EVAL IN ER 01/30/17 17:20 APPEARS COMFORTABLE NAD. PENDING PODIATRY DISPO 01/30/17 17:48 SOFT CASE TO BE PLACED L FOOT BY PODIATRY RESIDENT. FU OFFICE 02/05 - Data Reviewed Data Reviewed: Diagnostic imaging, Old records - Continuity of Care Discussed pt. case with cancer program consultant/specialty: Podiatry Disposition Counseled Patient/Family Regarding: Diagnosis, Need For Followup - Disposition Referrals: Carly Leon DPM [Staff Provider] - Disposition: HOME/ ROUTINE Disposition Time: 17:45 Condition: IMPROVED Additional Instructions: FOLLOW UP PODIATRY ADVISED ON 02/05/17 Prescriptions: Ibuprofen [Motrin] 600 mg PO Q6 #30 tab Instructions: Arthralgia (ED) Forms: [facility] (Nicaraguan), Work Excuse - Clinical Impression Clinical Impression: Foot pain - Scribe Statement The provider has reviewed the documentation as recorded by the Xenaibtosha Thomas All medical record entries made by the Xenaibe were at my direction and personally dictated by me. I have reviewed the chart and agree that the record accurately reflects my personal performance of the history, physical exam, medical decision making, and the department course for this patient. I have also personally directed, reviewed, and agree with the discharge instructions and disposition.
[2017-01-30] MEDS ORDERED: Oxycodone/Acetaminophen 5/325 mg Tab PO STA (15:46)
[2017-01-30] MEDS ORDERED: Oxycodone/Acetaminophen 5/325 mg Tab ONE (15:54)
--- NOTE | 2017-01-30 16:20 | RAD ---
PROCEDURE: Left foot radiographs Left ankle radiographs HISTORY: PAIN COMPARISON: Left ankle radiographs performed 11/01/16, bilateral foot radiographs performed 08/28/16 FINDINGS: BONES: No acute displaced fracture identified. 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 Sclerosis/fusion re-identified. Foreshortened distal fibula, possibly postoperative. Calcification versus ossification re-identified adjacent to the distal 2/3 medial aspect tibia. JOINTS: No dislocation. SOFT TISSUES: Soft tissue swelling. No evidence of radiopaque foreign body. OTHER FINDINGS: None. IMPRESSION: No acute displaced fracture identified. Additional findings as above.
[2017-01-30 18:07] VITALS: BP 118/65; PULSE 72; RESP 18
== END 2017-01-30 18:09 | disposition home or self-care (01) ==
LOC: C.ER 15:08
DX: M79.672 Pain in left foot (principal)

== ENCOUNTER 2017-02-24 08:34 | Emergency (ER) | payer MEDICAID ==
[2017-02-24 08:42] VITALS: O2SAT 100; BMI 28.1
[2017-02-24] MEDS ORDERED: Sodium Chloride 0.9% 1,000 ML IV ONE (09:26)
--- NOTE | 2017-02-24 09:46 | C.PDOC ---
History Of Present Illness 26 y/o female presents to ED for evaluation of lower abdominal pain and back pain associated with nausea and vomiting for the past 4 days. Notes that she has not been able to eat or drink for the past 4 days. Notes that her symptoms feels similar to when had UTI in the past. Denies diarrhea, urinary symptoms, or fever. Time Seen by Provider: 02/24/17 08:37 Chief Complaint (Nursing): Abdominal Pain History Per: Patient History/Exam Limitations: no limitations Onset/Duration Of Symptoms: Days (4) Current Symptoms Are (Timing): Still Present Location Of Pain/Discomfort: Suprapubic Radiation Of Pain To:: Back Quality Of Discomfort: "Pain" Associated Symptoms: Nausea, Vomiting, Loss Of Appetite, Back Pain. denies: Diarrhea, Chest Pain, Constipation, Urinary Symptoms Exacerbating Factors: None Alleviating Factors: None Recent travel outside of the [place]: No Additional History Per: Patient Abnormal Vaginal Bleeding: No Past Medical History Reviewed: Historical Data, Nursing Documentation, Vital Signs Vital Signs: Last Vital Signs Temp 97.7 F 02/24/17 12:38 Pulse 85 02/24/17 12:38 Resp 20 02/24/17 12:38 BP 117/85 02/24/17 12:38 Pulse Ox 100 02/24/17 12:38 - Medical History PMH: Arthritis, Asthma, HTN (controlled no meds per pt), Peripheral Edema (FROM FRACTURE), Rheumatoid Arthritis (SLE '05), Seizures Surgical History: Endoscopy - [facility] Procedures FUSION OF LEFT ANKLE JOINT WITH INT FIX, OPEN APPROACH (11/08/15) INJECT/INFUSE NEC (03/22/14) REMOVAL OF SYNTH SUB FROM L LOW EXTREM, OPEN APPROACH (09/20/16) SUPPLEMENT LEFT TIBIA WITH SYNTH SUB, OPEN APPROACH (09/20/16) Family History: States: Unknown Family Hx - Social History Hx Tobacco Use: No Hx Alcohol Use: No Hx Substance Use: No - Immunization History Hx Tetanus Toxoid Vaccination: Yes Hx Influenza Vaccination: Yes Hx Pneumococcal Vaccination: Yes Review Of Systems Except As Marked, All Systems Reviewed And Found Negative. Constitutional: Negative for: Fever, Chills Gastrointestinal: Positive for: Nausea, Vomiting, Abdominal Pain. Negative for : Diarrhea, Constipation Genitourinary: Negative for: Dysuria, Frequency, Incontinence, Hematuria, Vaginal Discharge Musculoskeletal: Positive for: Back Pain Neurological: Negative for: Weakness, Numbness Physical Exam - Physical Exam Appears: Non-toxic, No Acute Distress Skin: Normal Color, Warm, Dry Head: Atraumatic, Normacephalic Eye(s): bilateral: Normal Inspection Oral Mucosa: Moist Neck: Supple Chest: Symmetrical Cardiovascular: Rhythm Regular, No Murmur Respiratory: Normal Breath Sounds, No Rales, No Rhonchi, No Wheezing Gastrointestinal/Abdominal: Soft, Tenderness (mild suprapubic), No Guarding, No Rebound Back: CVA Tenderness (left), No Vertebral Tenderness Extremity: Normal ROM, No Pedal Edema, No Deformity Neurological/Psych: Oriented x3, Normal Speech, Normal Cognition Gait: Steady ED Course And Treatment - Laboratory Results Result Diagrams: 02/24/17 09:59 02/24/17 09:59 Lab Interpretation: No Acute Changes O2 Sat by Pulse Oximetry: 100 (RA) Pulse Ox Interpretation: Normal Progress Note: Blood work, urinalysis, urine culture ordered and reviewed. Patient was given Toradol, Zofran, and IV fluids. Treated with rocephin 1 gm IV. On re-evaluation abdomen soft non-tender in no distress Reassessment Condition: Improved Medical Decision Making Medical Decision Making: Patient treated with IVF NSS and rocephin advised to follow up with PMD or clinic for further evaluation Disposition Counseled Patient/Family Regarding: Studies Performed, Diagnosis, Need For Followup, Rx Given - Disposition Referrals: [facility] [Outside] [facility] [Outside] Disposition: HOME/ ROUTINE Disposition Time: 12:30 Condition: STABLE Additional Instructions: Follow up with clinic or PMD for further evaluation Return to ED if any increase symptoms Prescriptions: Cephalexin [Keflex] 500 mg PO Q6 #28 capsule Instructions: Urinary Tract Infection in Women (ED), Acute Pyelonephritis (ED) Forms: [employer] (Malay) - POA Present On Arrival: None - Clinical Impression Clinical Impression: Urinary tract infection, Pyelonephritis - 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 - Scribe Statement The provider has reviewed the documentation as recorded by the Xenaibtosha Souza All medical record entries made by the Xenaibtosha were at my direction and personally dictated by me. I have reviewed the chart and agree that the record accurately reflects my personal performance of the history, physical exam, medical decision making, and the department course for this patient. I have also personally directed, reviewed, and agree with the discharge instructions and disposition.
[2017-02-24] MEDS ORDERED: Sodium Chloride 0.9% 1,000 ML ONE (09:50)
[2017-02-24 10:07] LABS: BASO # 0.1 K/uL (0.0-0.2); BASO % 0.6 % (0.0-2.0); EOS % 0.4 % (0.0-4.0); HEMATOCRIT 39.4 % (34.0-47.0); LYMPH # 1.2 K/uL (1.0-4.3); LYMPH % 12.6 % (20.0-40.0); MEAN CELL VOLUME 90.2 fL (81.0-99.0); MEAN CORPUSCULAR HEMOGLOBIN 29.9 pg (27.0-31.0); MEAN CORPUSCULAR HGB CONC 33.1 g/dL (33.0-37.0); MEAN PLATELET VOLUME 7.7 fL (7.2-11.7); MONO # 0.7 K/uL (0.0-0.8); MONO % 7.2 % (0.0-10.0); RED CELL DISTRIBUTION WIDTH 13.3 % (11.5-14.5); WHITE BLOOD COUNT 9.8 K/uL (4.8-10.8)
[2017-02-24 10:51] LABS: RBC URINE 1094 /hpf (0-3); URINE BACTERIA MOD (<OCC); URINE BILIRUBIN NEGATIVE (NEGATIVE); URINE BLOOD 3+ (NEGATIVE); URINE COLOR Yellow (YELLOW); URINE GLUCOSE (UA) NORMAL (Normal); URINE KETONE NEGATIVE (NEGATIVE); URINE LEUKOCYTE ESTERASE 3+ Leu/uL (Negative); URINE PROTEIN 2+ mg/dL (NEGATIVE); URINE UROBILINOGEN NORMAL mg/dL (0.2-1.0)
[2017-02-24 10:53] LABS: WBC URINE 301 /hpf (0-5)
[2017-02-24] MEDS ORDERED: cefTRIAXone IV 1 gm in Dextros 50 ML IV ONE (10:57)
[2017-02-24 12:03] LABS: CHLORIDE 105 mmol/L (98-107)
[2017-02-24 12:04] LABS: POTASSIUM 3.3 mmol/L (3.6-5.2); SODIUM 135 mmol/L (132-148)
[2017-02-24 12:06] LABS: AST/SGOT 56 U/L (14-36); BILIRUBIN,TOTAL 0.9 mg/dL (0.2-1.3); CARBON DIOXIDE 17 mmol/L (22-30); GFR AFRICAN-AMERICAN > 60
[2017-02-24 12:07] LABS: ALB/GLOB RATIO 1.5 (1.0-2.1); ALKALINE PHOSPHATASE 80 U/L (38-126); ALT/SGPT 114 U/L (9-52); BLOOD UREA NITROGEN 16 mg/dL (7-17); CALCIUM 8.8 mg/dl (8.6-10.4); GLUCOSE,RANDOM 71 mg/dL (65-105); TOTAL PROTEIN 6.9 g/dL (6.3-8.3)
[2017-02-24 12:39] VITALS: BP 117/85; PULSE 85; RESP 20; TEMP 97.7
== END 2017-02-24 12:50 | disposition home or self-care (01) ==
LOC: C.ER 08:34
DX: N39.0 Urinary tract infection, site not specified (principal); N12 Tubulo-interstitial nephritis, not specified as acute or chronic; I10 Essential (primary) hypertension; M06.9 Rheumatoid arthritis, unspecified; M32.9 Systemic lupus erythematosus, unspecified
CPT/HCPCS: 80053; 81001; 83690; 84703; 85025; 87086; 96361; 96365; 96375; 99284; J0696; J1885; J2405; J7040; J7050

== ENCOUNTER 2017-03-17 19:34 | Emergency (ER) | payer MEDICAID ==
[2017-03-17 19:34] VITALS: BMI 28.1
[2017-03-17] MEDS ORDERED: Sodium Chloride 0.9% 1,000 ML IV ONE (19:45)
[2017-03-17 20:06] LABS: BASO % 0.3 % (0.0-2.0); EOS % 0.1 % (0.0-4.0); LYMPH # 0.5 K/uL (1.0-4.3); LYMPH % 5.5 % (20.0-40.0); MEAN CORPUSCULAR HEMOGLOBIN 29.8 pg (27.0-31.0); MEAN CORPUSCULAR HGB CONC 32.7 g/dL (33.0-37.0); MEAN PLATELET VOLUME 7.7 fL (7.2-11.7); MONO # 0.3 K/uL (0.0-0.8); MONO % 3.6 % (0.0-10.0); PLATELET COUNT 317 K/uL (130-400); RED CELL DISTRIBUTION WIDTH 13.2 % (11.5-14.5); WHITE BLOOD COUNT 9.7 K/uL (4.8-10.8)
[2017-03-17] MEDS ORDERED: Sodium Chloride 0.9% 1,000 ML ONE (20:09)
[2017-03-17 20:18] LABS: ALB/GLOB RATIO 1.3 (1.0-2.1); BILIRUBIN,TOTAL 1.3 mg/dL (0.2-1.3); GFR AFRICAN-AMERICAN > 60; GLUCOSE,RANDOM 74 mg/dL (65-105); POTASSIUM 4.3 mmol/L (3.6-5.2); TOTAL PROTEIN 7.9 g/dL (6.3-8.3)
[2017-03-17 20:19] LABS: ALKALINE PHOSPHATASE 82 U/L (38-126); ALT/SGPT 73 U/L (9-52); AST/SGOT 48 U/L (14-36); BLOOD UREA NITROGEN 21 mg/dL (7-17); CARBON DIOXIDE 19 mmol/L (22-30); CHLORIDE 103 mmol/L (98-107); SODIUM 136 mmol/L (132-148)
[2017-03-17 20:27] LABS: RBC URINE 2 /hpf (0-3); URINE BACTERIA OCC (<OCC); URINE BILIRUBIN NEGATIVE (NEGATIVE); URINE BLOOD NEGATIVE (NEGATIVE); URINE COLOR Yellow (YELLOW); URINE GLUCOSE (UA) NORMAL (Normal); URINE KETONE NEGATIVE (NEGATIVE); URINE LEUKOCYTE ESTERASE 1+ Leu/uL (Negative); URINE PROTEIN NEGATIVE (NEGATIVE); URINE UROBILINOGEN NORMAL mg/dL (0.2-1.0); WBC URINE 9 /hpf (0-5)
--- NOTE | 2017-03-17 20:52 | C.PDOC ---
History Of Present Illness 26 year old female presents to the ED c/o nausea and vomit that started today but states having body aches for the past 3 days. She lives with her cousin, denies any sick contacts, sexual intercourse. Time Seen by Provider: 03/17/17 19:40 Chief Complaint (Nursing): Abdominal Pain History Per: Patient History/Exam Limitations: no limitations Onset/Duration Of Symptoms: Hrs Current Symptoms Are (Timing): Still Present Severity: None Location Of Pain/Discomfort: Diffuse Radiation Of Pain To:: None Quality Of Discomfort: "Pain" Associated Symptoms: denies: Fever, Nausea, Vomiting, Loss Of Appetite, Urinary Symptoms Recent travel outside of the [place]: No Additional History Per: Patient Abnormal Vaginal Bleeding: No Past Medical History Reviewed: Historical Data, Nursing Documentation, Vital Signs Vital Signs: Last Vital Signs Temp 99.5 F 03/17/17 21:05 Pulse 89 03/17/17 21:05 Resp 20 03/17/17 21:05 BP 128/70 03/17/17 21:05 Pulse Ox 100 03/17/17 23:15 - Medical History PMH: Arthritis, Asthma, HTN (controlled no meds per pt), Peripheral Edema (FROM FRACTURE), Rheumatoid Arthritis (SLE '05), Seizures Denies: Chronic Kidney Disease Surgical History: Endoscopy - [facility] Procedures FUSION OF LEFT ANKLE JOINT WITH INT FIX, OPEN APPROACH (11/08/15) INJECT/INFUSE NEC (03/22/14) REMOVAL OF SYNTH SUB FROM L LOW EXTREM, OPEN APPROACH (09/20/16) SUPPLEMENT LEFT TIBIA WITH SYNTH SUB, OPEN APPROACH (09/20/16) Family History: States: Unknown Family Hx - Social History Hx Tobacco Use: No Hx Alcohol Use: No Hx Substance Use: No - Immunization History Hx Tetanus Toxoid Vaccination: Yes Hx Influenza Vaccination: Yes Hx Pneumococcal Vaccination: Yes Review Of Systems Constitutional: Negative for: Fever, Chills Cardiovascular: Negative for: Chest Pain Respiratory: Negative for: Cough, Shortness of Breath Gastrointestinal: Negative for: Nausea, Vomiting, Abdominal Pain Neurological: Negative for: Weakness, Numbness Physical Exam - Physical Exam Appears: Non-toxic, No Acute Distress, Other (plethoric face) Skin: Normal Color, Warm, Dry Head: Atraumatic, Normacephalic Oral Mucosa: Moist Neck: Normal ROM, Supple Chest: Symmetrical Cardiovascular: Rhythm Regular, No Murmur Respiratory: Normal Breath Sounds, No Rales, No Rhonchi, No Wheezing Gastrointestinal/Abdominal: Soft, No Tenderness Extremity: Normal ROM, No Pedal Edema, No Calf Tenderness, No Swelling Neurological/Psych: Oriented x3, Normal Speech, Normal Cognition Gait: Steady ED Course And Treatment - Laboratory Results Result Diagrams: 03/17/17 20:02 03/17/17 20:02 Lab Interpretation: Normal (tox neg.) Urine POC: Negative O2 Sat by Pulse Oximetry: 100 (On RA) Pulse Ox Interpretation: Normal - Radiology CXR: Interpreted by Me CXR Interpretation: Yes: No Acute Disease - Other Rad abd x 2 X-Ray: Interpreted by Me (+FOS, b/l hip replacements in good place.) Progress Note: IVF, zofran, toradol, pepcid Reevaluation Time: 20:51 Reassessment Condition: Improved Medical Decision Making Medical Decision Making: Plan: * Blood work, UA, Obstructive series ordered * Pepcid 20 mg IVP, Toradol 30 mg IVP, IV fluids, Zofran 4 mg IVP given viral syndrome, vomiting, no /UTI symptomatic relief. Disposition Doctor Will See Patient In The: Office Counseled Patient/Family Regarding: Studies Performed, Diagnosis - Disposition Referrals: Jessica Cline MD [Medical Doctor] - Disposition: HOME/ ROUTINE Disposition Time: 20:52 Condition: GOOD Additional Instructions: continue motrin/tylenol as needed for fevers keep well hydrated test negative today Zofran 4 mg ODT as needed for nausea/vomiting. Prescriptions: Ondansetron ODT [Zofran ODT] 4 mg PO Q6H PRN #6 odt PRN Reason: Nausea/Vomiting Instructions: Acute Nausea and Vomiting (ED), Viral Syndrome (ED) Forms: [email or web address] (Grenadian) - Clinical Impression Clinical Impression: Viral syndrome, Vomiting - Scribe Statement The provider has reviewed the documentation as recorded by the Scribe Jayy Martini All medical record entries made by the Scribe were at my direction and personally dictated by me. I have reviewed the chart and agree that the record accurately reflects my personal performance of the history, physical exam, medical decision making, and the department course for this patient. I have also personally directed, reviewed, and agree with the discharge instructions and disposition.
[2017-03-17 21:06] VITALS: BP 128/70; PULSE 89; RESP 20; TEMP 99.5
[2017-03-17 21:19] LABS: LARGE PLATELETS PRESENT; NEUTROPHIL 92 % (50-75); TOTAL CELLS COUNTED 100
[2017-03-17 23:11] VITALS: O2SAT 100
--- NOTE | 2017-03-18 08:38 | RAD ---
Abdomen four views History: Abdominal pain. Comparison: None available. Findings: No focal infiltrate or effusion. Bibasilar breast and nipple shadows. Heart size within normal limits. Mild to moderate fecal retention in the colon. Relative paucity of small bowel gas. No evidence of gross obstruction. Bilateral hip prostheses noted. Impression: Mild to moderate fecal retention in the colon.
== END 2017-03-17 21:06 | disposition home or self-care (01) ==
LOC: C.ER 19:34
DX: B34.9 Viral infection, unspecified (principal); R11.10 Vomiting, unspecified; I10 Essential (primary) hypertension; M06.9 Rheumatoid arthritis, unspecified; M32.9 Systemic lupus erythematosus, unspecified
CPT/HCPCS: 74022; 80053; 80324; 80345; 80346; 80349; 80353; 80358; 80361; 81001; 83690; 83992; 84703; 85025; 96361; 96374; 96375; 99285; J1885; J2405; J7040

== ENCOUNTER 2017-04-02 14:53 | Emergency (ER) | payer MEDICAID ==
[2017-04-02 14:53] VITALS: BMI 28.1
[2017-04-02 15:07] VITALS: BP 130/80; PULSE 86; RESP 18; TEMP 97.6; O2SAT 100
--- NOTE | 2017-04-02 16:55 | C.PDOC ---
History Of Present Illness 26 y/o female presents to ED with complaints of facial rash for 2-3 days. Patient is concerned for "lupus flare" and states she tried to call Exercise Physiologist but was unable to reach him. Patient denies fever, chills, sob, chest pain or any other complaints at this time. Chief Complaint (Nursing): Abnormal Skin Integrity History Per: Patient History/Exam Limitations: no limitations Onset/Duration Of Symptoms: Days Current Symptoms Are (Timing): Still Present Past Medical History Reviewed: Historical Data, Nursing Documentation, Vital Signs Vital Signs: Last Vital Signs Temp 97.6 F 04/02/17 15:01 Pulse 86 04/02/17 15:01 Resp 18 04/02/17 15:01 BP 130/80 04/02/17 15:01 Pulse Ox 100 04/02/17 16:57 - Medical History PMH: Arthritis, Asthma, HTN (controlled no meds per pt), Peripheral Edema (FROM FRACTURE), Rheumatoid Arthritis (SLE '05), Seizures (denies) Surgical History: Endoscopy - [facility] Procedures FUSION OF LEFT ANKLE JOINT WITH INT FIX, OPEN APPROACH (11/08/15) INJECT/INFUSE NEC (03/22/14) REMOVAL OF SYNTH SUB FROM L LOW EXTREM, OPEN APPROACH (09/20/16) SUPPLEMENT LEFT TIBIA WITH SYNTH SUB, OPEN APPROACH (09/20/16) Family History: States: No Known Family Hx - Social History Hx Tobacco Use: No Hx Alcohol Use: No Hx Substance Use: No - Immunization History Hx Tetanus Toxoid Vaccination: Yes Hx Influenza Vaccination: Yes Hx Pneumococcal Vaccination: Yes Review Of Systems Constitutional: Negative for: Fever, Chills Cardiovascular: Negative for: Chest Pain Respiratory: Negative for: Cough, Shortness of Breath Gastrointestinal: Negative for: Nausea, Vomiting Skin: Positive for: Rash Neurological: Negative for: Weakness, Numbness Physical Exam - Physical Exam Appears: Non-toxic, No Acute Distress Skin: Warm, Dry, Rash (Malar ) Head: Atraumatic, Normacephalic Eye(s): bilateral: Normal Inspection Oral Mucosa: Moist Throat: Normal, No Erythema, No Exudate Neck: Supple Cardiovascular: Rhythm Regular Respiratory: Normal Breath Sounds, No Rales, No Rhonchi, No Wheezing Gastrointestinal/Abdominal: Soft, No Tenderness, No Guarding, No Rebound Neurological/Psych: Oriented x3, Normal Speech, Normal Motor, Normal Sensation ED Course And Treatment O2 Sat by Pulse Oximetry: 100 (RA) Pulse Ox Interpretation: Normal Medical Decision Making Medical Decision Making: Able to contact Exercise Physiologist and recommended cream and follow up at office Disposition - Disposition Referrals: Kevin Villeda, [Non-Staff] - Disposition: HOME/ ROUTINE Disposition Time: 15:20 Condition: GOOD Additional Instructions: Thank you for letting us take care of you today. The emergency medical care you received today was directed at your acute symptoms. If you were prescribed any medication, please fill it and take as directed. It may take several days for your symptoms to resolve. Return to the Emergency Department if your symptoms worsen, do not improve, or if you have any other problems. Please contact your doctor or call one of the physicians/clinics you have been referred to that are listed on the Patient Visit Information form that is included in your discharge packet. Bring any paperwork you were given at discharge with you along with any medications you are taking to your follow up visit. Our treatment cannot replace ongoing medical care by a primary care provider (PCP) outside of the emergency department. Thank you for allowing the [facility] team to be part of your care today. Follow up with your sumo wrestler in 1-2 days for re-evaluation and management. Prescriptions: Betamethasone/Propylene Glyc [Betamethasone Dp Aug 0.05% Crm] 1 dose TP BID #1 cream..g. Instructions: Autoimmune Disease (ED) Forms: [employer] (Yemeni) - Clinical Impression Clinical Impression: Lupus (systemic lupus erythematosus) - Scribe Statement The provider has reviewed the documentation as recorded by the Ashley Thomas All medical record entries made by the Xenaibtosha were at my direction and personally dictated by me. I have reviewed the chart and agree that the record accurately reflects my personal performance of the history, physical exam, medical decision making, and the department course for this patient. I have also personally directed, reviewed, and agree with the discharge instructions and disposition.
== END 2017-04-02 15:50 | disposition home or self-care (01) ==
LOC: C.ER 14:53
DX: M32.9 Systemic lupus erythematosus, unspecified (principal); I10 Essential (primary) hypertension

== ENCOUNTER 2017-05-01 17:10 | Emergency (ER) | payer MEDICAID ==
[2017-05-01 17:10] VITALS: BMI 28.1
[2017-05-01] MEDS ORDERED: Sodium Chloride 0.9% 1,000 ML IV ONE (19:30)
--- NOTE | 2017-05-01 19:31 | C.PDOC ---
History Of Present Illness 26 y/o female with hx Lupus and Asthma, complaining of nausea, vomiting, and abdominal pain that began this morning. Pt notes she woke this morning asymptomatic, then she took her chronic medication and shortly after felt epigastric pain. No SOB, chest pain, diarrhea or constipation, or urinary complaints. She denies chance of . Estelle has not tried any medications to improve the discomfort or nausea/vomiting. Time Seen by Provider: 05/01/17 19:19 Chief Complaint (Nursing): Abdominal Pain History Per: Patient History/Exam Limitations: no limitations Onset/Duration Of Symptoms: Days (1) Current Symptoms Are (Timing): Still Present Severity: Moderate Location Of Pain/Discomfort: Epigastric Radiation Of Pain To:: None Quality Of Discomfort: Cramping, "Pain" Associated Symptoms: Nausea, Vomiting. denies: Fever, Chills, Diarrhea, Loss Of Appetite, Back Pain, Chest Pain, Constipation, Urinary Symptoms Exacerbating Factors: None Alleviating Factors: None Recent travel outside of the [place]: No Additional History Per: Patient Past Medical History Vital Signs: Last Vital Signs Temp 97.7 F 05/01/17 21:48 Pulse 90 05/01/17 21:48 Resp 20 05/01/17 21:48 BP 140/78 05/01/17 21:48 Pulse Ox 98 05/01/17 22:12 - Medical History PMH: Arthritis, Asthma, HTN (controlled no meds per pt), Peripheral Edema (FROM FRACTURE), Rheumatoid Arthritis (SLE '05), Seizures (denies) Denies: Chronic Kidney Disease Surgical History: Endoscopy Other Surgeries: b/l hip replacement (necrosis) - [facility] Procedures FUSION OF LEFT ANKLE JOINT WITH INT FIX, OPEN APPROACH (11/08/15) INJECT/INFUSE NEC (03/22/14) REMOVAL OF SYNTH SUB FROM L LOW EXTREM, OPEN APPROACH (09/20/16) SUPPLEMENT LEFT TIBIA WITH SYNTH SUB, OPEN APPROACH (09/20/16) Family History: States: Unknown Family Hx - Social History Hx Tobacco Use: No Hx Alcohol Use: No Hx Substance Use: No - Immunization History Hx Tetanus Toxoid Vaccination: Yes Hx Influenza Vaccination: Yes Hx Pneumococcal Vaccination: Yes Review Of Systems Except As Marked, All Systems Reviewed And Found Negative. Gastrointestinal: Positive for: Nausea, Vomiting, Abdominal Pain Physical Exam - Physical Exam Appears: Well, Non-toxic, No Acute Distress (pt on cell phone in no apparent distress) Skin: Normal Color, Warm, Dry Head: Atraumatic, Normacephalic Eye(s): bilateral: Normal Inspection, EOMI Nose: Normal Oral Mucosa: Moist Neck: Normal, Normal ROM, Supple Chest: Symmetrical Cardiovascular: Rhythm Regular Respiratory: Normal Breath Sounds Gastrointestinal/Abdominal: Soft, Tenderness (epigastric), No Guarding, No Rebound Back: Normal Inspection, No CVA Tenderness Extremity: Normal ROM Neurological/Psych: Oriented x3, Normal Speech ED Course And Treatment - Laboratory Results Result Diagrams: 05/01/17 19:58 05/01/17 19:58 O2 Sat by Pulse Oximetry: 98 - CT Scan/US Abd US Other Rad Studies (CT/US): Read By Radiologist, Radiology Report Reviewed CT/US Interpretation: ABDOMEN COMPLETE Exam Date: 05/01/17. . This imaging exam was performed at [facility] (Formerly [facility]3]. EXAM: US Abdomen, limited. . CLINICAL HISTORY: 26 years old, female; Pain; Other: Not specified. . TECHNIQUE: Real-time ultrasound of the abdomen (complete) with image documentation. . COMPARISON: No relevant prior studies available. . FINDINGS: Liver: Normal echogenicity. 0.6 x 0.5 x 0.7 cm hyperechoic lesion within. right lobe. No intrahepatic ductal dilatation. Gallbladder: Gallstones. No wall thickening. No pericholecystic fluid. No. sonographic Vides's sign. Common bile duct: No dilatation. No stones. Pancreas: Unremarkable as visualized. Right kidney: Normal echogenicity. No hydronephrosis. Free fluid: Trace free fluid within abdomen. . IMPRESSION: 1. Cholelithiasis. 2. Liver lesion, indeterminate. Suggest nonemergent MRI. . Dictated By: Rogelio Lombardi MD. Dictated Date/Time: 05/01/172207. Signed By: Rogelio Lombardi MD. Date Signed: 05/01/172207. Transcribed By: [facility]. Transcribe Date/Time: 05/01/172207. ACYP02/WOOD Medical Decision Making Medical Decision Making: Impression: Abdominal pain in the setting of nausea and vomiting. Plan: -Urine Test -Labs -Pepcid, Toradol, Zofran - IVF On re-evaluation , pain improved. PT tolerating PO. Abd soft, nontender. Instructed to follow up with PMD or return to ER if symptoms persist or worsen. Disposition - Disposition Disposition: HOME/ ROUTINE Disposition Time: 22:10 Condition: STABLE Additional Instructions: Follow up with your primary medical doctor or clinic in 2-5 days for further evaluation. Take medications as prescribed. Return to the emergency department at any time if symptoms persist or worsen. Prescriptions: Calcium Carbonate/Simethicone [Maalox Advanced 1000 mg-60 mg] 1 ctb PO BID PRN # 20 ctb PRN Reason: Gi Distress Nitrofurantoin Macrocrystals [Macrobid] 1 cap PO BID #14 cap Instructions: Urinary Tract Infection in Women (ED) Forms: [employer] (Romansh) - Clinical Impression Clinical Impression: UTI (urinary tract infection), Cholelithiasis - Scribe Statement The provider has reviewed the documentation as recorded by the Scribe Osiris Norris
[2017-05-01] MEDS ORDERED: Sodium Chloride 0.9% 1,000 ML ONE (19:43)
[2017-05-01 19:53] LABS: SQUAMOUS EPITHIAL 10 /hpf (0-5); URINE BACTERIA RARE (<OCC); URINE BILIRUBIN NEGATIVE (NEGATIVE); URINE BLOOD NEGATIVE (NEGATIVE); URINE CLARITY Hazy (Clear); URINE COLOR Yellow (YELLOW); URINE GLUCOSE (UA) NORMAL (Normal); URINE LEUKOCYTE ESTERASE 3+ Leu/uL (Negative); URINE NITRATE NEGATIVE (NEGATIVE); URINE PROTEIN 1+ mg/dL (NEGATIVE); URINE UROBILINOGEN NORMAL mg/dL (0.2-1.0)
[2017-05-01 20:03] LABS: HCG,QUALITATIVE URINE NEGATIVE (NEGATIVE)
[2017-05-01 20:06] LABS: BASO # 0.1 K/uL (0.0-0.2); BASO % 0.6 % (0.0-2.0); EOS % 0.4 % (0.0-4.0); HEMOGLOBIN 14.7 g/dL (11.0-16.0); LYMPH # 0.6 K/uL (1.0-4.3); LYMPH % 5.9 % (20.0-40.0); MEAN CELL VOLUME 90.9 fL (81.0-99.0); MEAN CORPUSCULAR HEMOGLOBIN 29.5 pg (27.0-31.0); MEAN CORPUSCULAR HGB CONC 32.5 g/dL (33.0-37.0); MEAN PLATELET VOLUME 7.3 fL (7.2-11.7); MONO # 0.3 K/uL (0.0-0.8); MONO % 3.4 % (0.0-10.0); NEUT # 8.5 K/uL (1.8-7.0); NEUT % 89.7 % (50.0-75.0); PLATELET COUNT 303 K/uL (130-400); RBC 4.98 Mil/uL (3.80-5.20); RED CELL DISTRIBUTION WIDTH 14.1 % (11.5-14.5); WHITE BLOOD COUNT 9.5 K/uL (4.8-10.8)
[2017-05-01 20:18] LABS: ALB/GLOB RATIO 1.2 (1.0-2.1); ALBUMIN 4.3 g/dL (3.5-5.0); ALT/SGPT 51 U/L (9-52); AST/SGOT 33 U/L (14-36); BLOOD UREA NITROGEN 21 mg/dL (7-17); CALCIUM 8.9 mg/dl (8.6-10.4); GFR AFRICAN-AMERICAN > 60; GFR NON-AFRICAN AMERICAN > 60; LIPASE 105 U/L (23-300)
[2017-05-01] MEDS ORDERED: Alum-Mag Hydrox-Simethicone Susp (30 mL) PO STA (20:24)
[2017-05-01] MEDS ORDERED: Alum-Mag Hydrox-Simethicone Susp (30 mL) ONE (20:49)
[2017-05-01 21:03] LABS: BANDS 1 % (0-2); LYMPHOCYTE 8 % (20-40); MONOCYTE 2 % (0-10); NEUTROPHIL 89 % (50-75); PLATELET ESTIMATE NORMAL (NORMAL); TOTAL CELLS COUNTED 100
[2017-05-01 21:49] VITALS: BP 140/78; PULSE 90; RESP 20; TEMP 97.7
--- NOTE | 2017-05-01 22:09 | US ---
EXAM: US Abdomen, limited CLINICAL HISTORY: 26 years old, female; Pain; Other: Not specified TECHNIQUE: Real-time ultrasound of the abdomen (complete) with image documentation. COMPARISON: No relevant prior studies available. FINDINGS: Liver: Normal echogenicity. 0.6 x 0.5 x 0.7 cm hyperechoic lesion within right lobe. No intrahepatic ductal dilatation. Gallbladder: Gallstones. No wall thickening. No pericholecystic fluid. No sonographic Vides's sign. Common bile duct: No dilatation. No stones. Pancreas: Unremarkable as visualized. Right kidney: Normal echogenicity. No hydronephrosis. Free fluid: Trace free fluid within abdomen. IMPRESSION: 1. Cholelithiasis. 2. Liver lesion, indeterminate. Suggest nonemergent MRI.
[2017-05-01 22:12] VITALS: O2SAT 98
--- NOTE | 2017-05-02 10:58 | RAD ---
PROCEDURE: Radiographs of the chest and abdomen (obstructive series) HISTORY: pain COMPARISON: Obstructive series performed 03/17/17 TECHNIQUE: AP radiograph of the chest, with upright and supine radiographs of the abdomen. FINDINGS: CHEST: The cardiomediastinal silhouette appears within normal limits of size. No focal consolidation, significant pleural effusion, or definite pneumothorax identified.Please note that chest x-ray has limited sensitivity for the detection of pulmonary masses. ABDOMEN AND PELVIS: Nonobstructive bowel gas pattern. Mild constipation. No definite free air. Bilateral hip arthroplasties. IMPRESSION: Mild constipation.
== END 2017-05-01 22:32 | disposition home or self-care (01) ==
LOC: C.ER 17:10
DX: N39.0 Urinary tract infection, site not specified (principal); K80.20 Calculus of gallbladder without cholecystitis without obstruction
CPT/HCPCS: 74022; 76700; 80053; 81001; 83690; 84703; 85025; 96361; 96374; 96375; 99284; J1885; J2405; J7040

== ENCOUNTER 2017-07-13 15:25 | Emergency (ER) | payer MEDICAID ==
[2017-07-13 15:29] VITALS: BMI 28.3
[2017-07-13 15:30] VITALS: RESP 20
--- NOTE | 2017-07-13 15:39 | C.PDOC ---
History Of Present Illness L SIDE FOOT PAIN SINCE THIS MORNING. PS MSG DR LEON AND WAS ADVISED TO COME TO ER FOR XRAYS. SAW DR LEON 07/09 FOR L FOOT TRAUMA BUT CURRENT PAIN IS DIF FROM TRAUMA AREA. LOCALIZED WORSE W WT BEAR EXAM NAD EXT L FOOT ATRAUM +MILD TEND L LAT FOOT NO DEFORM, SWELL SKIN INTACT NO ERYTHEMA NEURO INTACT REMAINDE RNEG Chief Complaint (Nursing): Lower Extremity Problem/Injury History Per: Patient History/Exam Limitations: no limitations Past Medical History Reviewed: Historical Data, Nursing Documentation, Vital Signs Vital Signs: Last Vital Signs Temp 97.8 F 07/13/17 15:29 Pulse 86 07/13/17 15:29 Resp 20 07/13/17 15:29 BP 125/85 07/13/17 15:29 Pulse Ox 96 07/13/17 16:11 - Medical History PMH: Arthritis, Asthma, HTN (controlled no meds per pt), Peripheral Edema (FROM FRACTURE), Rheumatoid Arthritis (SLE '05), Seizures (denies) Denies: Chronic Kidney Disease Surgical History: Endoscopy - [facility] Procedures FUSION OF LEFT ANKLE JOINT WITH INT FIX, OPEN APPROACH (11/08/15) INJECT/INFUSE NEC (03/22/14) REMOVAL OF SYNTH SUB FROM L LOW EXTREM, OPEN APPROACH (09/20/16) SUPPLEMENT LEFT TIBIA WITH SYNTH SUB, OPEN APPROACH (09/20/16) Family History: States: No Known Family Hx - Social History Hx Tobacco Use: No Hx Alcohol Use: No Hx Substance Use: No - Immunization History Hx Tetanus Toxoid Vaccination: Yes Hx Influenza Vaccination: Yes Hx Pneumococcal Vaccination: Yes Review Of Systems Constitutional: Negative for: Fever Musculoskeletal: Positive for: Foot Pain Neurological: Negative for: Weakness, Numbness Physical Exam - Physical Exam Appears: Well, Non-toxic, No Acute Distress Skin: Normal Color, Warm, Dry, No Rash Extremity: No Deformity, No Swelling, Other (L FOOT ATRAUM +MILD TEND L LAT FOOT NO DEFORM, SWELL) Pulses: Left Dorsalis Pedis: Normal, Right Dorsalis Pedis: Normal Neurological/Psych: Oriented x3, Normal Speech, Normal Motor, Normal Sensation ED Course And Treatment O2 Sat by Pulse Oximetry: 96 (RA) Pulse Ox Interpretation: Normal Progress - Re-Evaluation Re-evaluation Note: 07/13/17 15:42 D/W PODIATRY RESIDENT WILL EVAL IN ER 07/13/17 17:00 SP LIDOCAINE AND DEXAMETHASON INJECTION BY PODIATRY RESIDENT. FU CLINIC - Data Reviewed Data Reviewed: Diagnostic imaging, Old records Disposition Counseled Patient/Family Regarding: Studies Performed, Diagnosis, Need For Followup - Disposition Referrals: Carly Leon DPM [Staff Provider] - Disposition: HOME/ ROUTINE Disposition Time: 17:01 Condition: IMPROVED Instructions: Foot Sprain (DC) Forms: [employer] (Citizen [place]), Work Excuse, School Excuse - Clinical Impression Clinical Impression: Foot pain - Scribe Statement The provider has reviewed the documentation as recorded by the Scribe (Mirella Padilla) All medical record entries made by the Scribe were at my direction and personally dictated by me. I have reviewed the chart and agree that the record accurately reflects my personal performance of the history, physical exam, medical decision making, and the department course for this patient. I have also personally directed, reviewed, and agree with the discharge instructions and disposition.
[2017-07-13] MEDS ORDERED: Lidocaine 1% Inj (20ml) INFIL ONE (15:58)
[2017-07-13] MEDS ORDERED: Dexamethasone 4 mg/1 ml IM STA (15:58)
[2017-07-13] MEDS ORDERED: Dexamethasone 4 mg/1 ml ONE (16:03)
--- NOTE | 2017-07-13 16:49 | RAD ---
PROCEDURE: Left Foot Radiographs. HISTORY: PAIN TRAUMA COMPARISON: Ankle radiographs performed 06/14/27 FINDINGS: BONES: No acute displaced fracture. JOINTS: No dislocation. Narrowing of the subtalar joint. 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 Postsurgical changes evident. Resection of the distal fibula. SOFT TISSUES: No evidence of radiopaque foreign body. OTHER FINDINGS: None. IMPRESSION: No acute displaced fracture of the foot appreciated. Irregular appearance of the ankle likely related to degenerative changes and prior surgery. Dedicated ankle radiographs may be considered for further evaluation. Resection of the distal fibula.
[2017-07-13 17:13] VITALS: BP 131/74; PULSE 83; TEMP 97.9; O2SAT 99
--- NOTE | 2017-07-13 17:37 | CP.PCM.CON ---
History of Present Illness - History of Present Illness History of Present Illness: 25 y/o female patient with pmhx of Arthritis, Asthma, HTN, Rheumatoid Arthritis (SLE '05), Seizures (febrile 2010 last) was seen in the ED after request for podiatry consultation concerning painful Left foot. Patient is well known to Dr. Leon. This patient had Left ankle fusion 11/12 but complains of no pain to the ankle. Patient complains of pain to dorsal aspect of Left foot 5th metatarsal base. Patient does not remember any trauma to the area. The pain to dorsal aspect of left 5th wilian base is exacerbated by walking. She denies any other pedal complaints at this time. She denies n/f/v/c/d/sob. Review of Systems - Constitutional Constitutional: As Per HPI Past Patient History - Infectious Disease Hx of Infectious Diseases: None - Tetanus Immunizations Tetanus Immunization: Unknown - Past Medical History & Family History Past Medical History?: Yes - Past Social History Smoking Status: Never Smoked - CARDIAC Hx Hypertension: Yes (controlled no meds per pt) Hx Peripheral Edema: Yes (FROM FRACTURE) - PULMONARY Hx Asthma: Yes - NEUROLOGICAL Hx Seizures: Yes (denies) - HEENT Hx HEENT Problems: No - RENAL Hx Chronic Kidney Disease: No - ENDOCRINE/METABOLIC Hx Endocrine Disorders: Yes Hx Systemic Lupus Erythematosus: Yes - HEMATOLOGICAL/ONCOLOGICAL Hx Blood Disorders: Yes Hx Blood Transfusions: Yes (2011) - INTEGUMENTARY Hx Dermatological Problems: Yes (lupus rash neck) - MUSCULOSKELETAL/RHEUMATOLOGICAL Hx Arthritis: Yes Hx Rheumatoid Arthritis: Yes (SLE '05) - GASTROINTESTINAL Hx Gastrointestinal Disorders: Yes Hx Gastroesophageal Reflux: Yes - GENITOURINARY/GYNECOLOGICAL Hx Genitourinary Disorders: No - PSYCHIATRIC Hx Substance Use: No - SURGICAL HISTORY Hx Surgeries: Yes - ANESTHESIA Hx Anesthesia: Yes Hx Anesthesia Reactions: No Hx Malignant Hyperthermia: No Meds Allergies/Adverse Reactions: Allergies Allergy/AdvReac Type Severity Reaction Status Date / Time latex Allergy Intermediate RASH Verified 07/13/17 15:28 diphenhydramine HCl Allergy Mild RASH Verified 07/13/17 15:28 [From Benadryl] seafood Allergy Intermediate RASH Uncoded 07/13/17 15:28 Physical Exam - Constitutional Appears: Well, Non-toxic, No Acute Distress - Head Exam Head Exam: ATRAUMATIC - Extremities Exam Additional comments: left lower extremity focused: derm: No open wound noted, surgical incision sites well coapted, lateral and plantar incision sites, no dehiscence, no purulence, no drainage, no bleeding, no fluctuance vasc: palpable pedal pulses, TG wnl, CFT < 3 sec to all digits, localized edema to foot and ankle neuro: grossly intact ortho: pain on palpation of plantar incision site - Neurological Exam Neurological exam: Alert, Oriented x3 - Psychiatric Exam Psychiatric exam: Normal Affect, Normal Mood Results - Vital Signs Recent Vital Signs: Last Vital Signs Temp 97.9 F 07/13/17 17:12 Pulse 83 07/13/17 17:12 Resp 20 07/13/17 17:12 BP 131/74 07/13/17 17:12 Pulse Ox 99 07/13/17 17:12 Assessment & Plan - Assessment and Plan (Free Text) Assessment: 26 yo female patient presenting with Left foot pain, arthritis to 5th met cuneiform joint Plan: patient evaluated and chart reviewed discussed in detail with attending Dr. Leon labs and vitals reviewed; afebrile Verbal consent obtained for corticosteriod injection to Left 5th met-cuneiform joint Mix of 1cc of Dexamethasone and 2cc of 1% Lidocaine plain was injected into Left foot 5th met-cuneiform joint Rx Augmentin 875mg PO BID x 10 days f/u in [facility] podiatry clinic on 11/15/[address] Leon
== END 2017-07-13 17:15 | disposition home or self-care (01) ==
LOC: C.ER 15:25
DX: M79.672 Pain in left foot (principal)

== ENCOUNTER 2017-08-13 10:36 | Emergency (ER) | payer MEDICAID ==
[2017-08-13 10:37] VITALS: BMI 28.3
[2017-08-13] MEDS ORDERED: Sodium Chloride 0.9% 1,000 ML IV ONE (11:25)
[2017-08-13 11:46] LABS: HCG,QUALITATIVE URINE NEGATIVE (NEGATIVE)
[2017-08-13 11:51] LABS: SQUAMOUS EPITHIAL 1 /hpf (0-5); URINE BILIRUBIN NEGATIVE (NEGATIVE); URINE BLOOD NEGATIVE (NEGATIVE); URINE CLARITY Hazy (Clear); URINE COLOR Yellow (YELLOW); URINE GLUCOSE (UA) NORMAL (Normal); URINE LEUKOCYTE ESTERASE TRACE Leu/uL (Negative); URINE PROTEIN 1+ mg/dL (NEGATIVE); URINE UROBILINOGEN NORMAL mg/dL (0.2-1.0)
--- NOTE | 2017-08-13 12:07 | C.PDOC ---
Time Seen by Provider: 08/13/17 10:58 Chief Complaint (Nursing): Abdominal Pain Past Medical History Reviewed: Historical Data, Nursing Documentation, Vital Signs Vital Signs: Last Vital Signs Temp 98.4 F 08/13/17 10:44 Pulse 106 H 08/13/17 10:44 Resp 17 08/13/17 10:44 BP 124/85 08/13/17 10:44 Pulse Ox 100 08/13/17 10:44 - Medical History PMH: Arthritis, Asthma, HTN (controlled no meds per pt), Peripheral Edema (FROM FRACTURE), Rheumatoid Arthritis (SLE '05), Seizures (denies) Denies: Chronic Kidney Disease Surgical History: Endoscopy - [facility] Procedures FUSION OF LEFT ANKLE JOINT WITH INT FIX, OPEN APPROACH (11/08/15) INJECT/INFUSE NEC (03/22/14) REMOVAL OF SYNTH SUB FROM L LOW EXTREM, OPEN APPROACH (09/20/16) SUPPLEMENT LEFT TIBIA WITH SYNTH SUB, OPEN APPROACH (09/20/16) Family History: States: No Known Family Hx - Social History Hx Tobacco Use: No Hx Alcohol Use: No Hx Substance Use: No - Immunization History Hx Tetanus Toxoid Vaccination: Yes Hx Influenza Vaccination: Yes Hx Pneumococcal Vaccination: Yes ED Course And Treatment O2 Sat by Pulse Oximetry: 100 Disposition - Disposition - Scribe Statement The provider has reviewed the documentation as recorded by the Scribe (Mirella Padilla) All medical record entries made by the Scribe were at my direction and personally dictated by me. I have reviewed the chart and agree that the record accurately reflects my personal performance of the history, physical exam, medical decision making, and the department course for this patient. I have also personally directed, reviewed, and agree with the discharge instructions and disposition.
[2017-08-13 12:33] LABS: ALBUMIN 3.6 g/dL (3.5-5.0); ALT/SGPT 42 U/L (9-52); AST/SGOT 32 U/L (14-36); BLOOD UREA NITROGEN 12 mg/dL (7-17); CALCIUM 9.1 mg/dl (8.6-10.4); GFR AFRICAN-AMERICAN > 60; GFR NON-AFRICAN AMERICAN > 60; LIPASE 157 U/L (23-300)
--- NOTE | 2017-08-13 12:43 | C.PDOC ---
History Of Present Illness 26-year-old female, PMHx includes Lupus, presents to the emergency department with complaints of back pain that started a few days ago. Pain is persistent in nature and worsened with movement. Patient denies numbness, weakness, dysuria/ hematuria, diarrhea, fevers, chills, shortness of breath or chest pain. No other complaints at this time. Time Seen by Provider: 08/13/17 10:58 Chief Complaint (Nursing): Abdominal Pain History Per: Patient History/Exam Limitations: no limitations Current Symptoms Are (Timing): Still Present Past Medical History Reviewed: Historical Data, Nursing Documentation, Vital Signs Vital Signs: Last Vital Signs Temp 98.5 F 08/13/17 16:14 Pulse 85 08/13/17 16:14 Resp 18 08/13/17 16:14 BP 137/89 08/13/17 16:14 Pulse Ox 100 08/13/17 16:35 - Medical History PMH: Arthritis, Asthma, HTN (controlled no meds per pt), Peripheral Edema (FROM FRACTURE), Rheumatoid Arthritis (SLE '05), Seizures (denies) Surgical History: Endoscopy - [facility] Procedures FUSION OF LEFT ANKLE JOINT WITH INT FIX, OPEN APPROACH (11/08/15) INJECT/INFUSE NEC (03/22/14) REMOVAL OF SYNTH SUB FROM L LOW EXTREM, OPEN APPROACH (09/20/16) SUPPLEMENT LEFT TIBIA WITH SYNTH SUB, OPEN APPROACH (09/20/16) Family History: States: No Known Family Hx - Social History Hx Tobacco Use: No Hx Alcohol Use: No Hx Substance Use: No - Immunization History Hx Tetanus Toxoid Vaccination: Yes Hx Influenza Vaccination: Yes Hx Pneumococcal Vaccination: Yes Review Of Systems Constitutional: Negative for: Fever, Chills Cardiovascular: Negative for: Chest Pain Gastrointestinal: Negative for: Vomiting Genitourinary: Negative for: Dysuria, Hematuria Musculoskeletal: Positive for: Back Pain Neurological: Negative for: Weakness, Numbness, Headache, Dizziness Physical Exam - Physical Exam Appears: Non-toxic, No Acute Distress Skin: Normal Color, Warm, Dry, No Rash Head: Normacephalic Eye(s): bilateral: PERRL Nose: Normal Oral Mucosa: Moist Lips: Normal Appearing Neck: Normal ROM Chest: Symmetrical Cardiovascular: Rhythm Regular, No Murmur Respiratory: Normal Breath Sounds, No Accessory Muscle Use Gastrointestinal/Abdominal: Soft, No Tenderness, No Guarding, No Rebound Extremity: Normal ROM, No Deformity, No Swelling Neurological/Psych: Oriented x3, Normal Speech ED Course And Treatment - Laboratory Results Result Diagrams: 08/13/17 13:44 08/13/17 12:17 O2 Sat by Pulse Oximetry: 100 (RA) Pulse Ox Interpretation: Normal Medical Decision Making Medical Decision Making: Plan: * Bloodwork * IVFs, Toradol * Urine Culture * UA/HCG * US Pelvis/Transvaginal. * Reassess and Disposition On re-exam the patient reports improvement of symptoms. Abdomen is soft, non- tender and tolerating PO well. Lungs are CTA, Pulse ox: 99% on RA, heart is RRR. Follow up with the medical doctor within 1-2 days. return if worsened. Disposition - Disposition Referrals: [facility] [Outside] Disposition: HOME/ ROUTINE Disposition Time: 16:28 Condition: GOOD Additional Instructions: Follow up with the medical doctor within 1-2 days. REturn if worsened. Prescriptions: Ibuprofen [Motrin] 600 mg PO TID #21 tab Instructions: Acute Abdomen (Belly Pain), Adult (DC) Forms: [employer] (Citizen Of [place]), Work Excuse - Clinical Impression Clinical Impression: Free fluid in pelvis - Scribe Statement The provider has reviewed the documentation as recorded by the Scribe (Mirella Padilla) All medical record entries made by the Scribe were at my direction and personally dictated by me. I have reviewed the chart and agree that the record accurately reflects my personal performance of the history, physical exam, medical decision making, and the department course for this patient. I have also personally directed, reviewed, and agree with the discharge instructions and disposition.
[2017-08-13 13:31] VITALS: RESP 18
[2017-08-13 13:50] LABS: BASO % 0.4 % (0.0-2.0); EOS % 0.2 % (0.0-4.0); HEMOGLOBIN 13.1 g/dL (11.0-16.0); LYMPH # 0.7 K/uL (1.0-4.3); LYMPH % 9.9 % (20.0-40.0); MEAN CORPUSCULAR HEMOGLOBIN 30.4 pg (27.0-31.0); MEAN PLATELET VOLUME 7.2 fL (7.2-11.7); MONO # 0.4 K/uL (0.0-0.8); MONO % 6.1 % (0.0-10.0); NEUT # 5.9 K/uL (1.8-7.0); NEUT % 83.4 % (50.0-75.0); NRBC % 0.1 % (0.0-2.0); PLATELET COUNT 260 K/uL (130-400); RBC 4.32 Mil/uL (3.80-5.20); RED CELL DISTRIBUTION WIDTH 13.4 % (11.5-14.5); WHITE BLOOD COUNT 7.1 K/uL (4.8-10.8)
[2017-08-13 14:16] LABS: LYMPHOCYTE 9 % (20-40); MONOCYTE 3 % (0-10); NEUTROPHIL 88 % (50-75); PLATELET ESTIMATE NORMAL (NORMAL); TOTAL CELLS COUNTED 100
--- NOTE | 2017-08-13 15:16 | US ---
HISTORY: pelvic pain, back pain COMPARISON: None available. TECHNIQUE: Transabdominal and transvaginal FINDINGS: UTERUS: Measures 7.2 x 3.1 x 2.9 cm. Normal in size and appearance. No fibroid or other mass lesion seen. ENDOMETRIUM: Measures 12 mm in diameter. Small amount of endometrial fluid noted common nonspecific. CERVIX: No cervical abnormality identified. RIGHT OVARY: Measures 2.1 x 1.6 x 1.9 cm. No solid mass. Normal flow. LEFT OVARY: Measures 2.4 x 1.3 x 1.9 cm. No solid mass. Normal flow. FREE FLUID: No significant free fluid noted. OTHER FINDINGS: None. IMPRESSION: Small amount of endometrial fluid. Otherwise unremarkable examination.
[2017-08-13 16:15] VITALS: BP 137/89; PULSE 85; TEMP 98.5
[2017-08-13 16:31] VITALS: O2SAT 100
== END 2017-08-13 16:46 | disposition home or self-care (01) ==
LOC: C.ER 10:36
DX: N94.89 Other specified conditions associated with female genital organs and menstrual cycle (principal)
CPT/HCPCS: 36415; 76830; 76856; 80053; 81001; 83690; 84703; 85025; 87086; 96372; 99285; J1885

== ENCOUNTER 2017-08-18 09:24 | Emergency (ER) | payer MEDICAID ==
[2017-08-18 09:25] VITALS: BMI 28.3
[2017-08-18 09:35] VITALS: BP 119/82; PULSE 116; RESP 18; TEMP 98.2; O2SAT 100
[2017-08-18 10:26] LABS: HCG,QUALITATIVE URINE NEGATIVE (NEGATIVE)
[2017-08-18 10:38] LABS: SQUAMOUS EPITHIAL 1 /hpf (0-5); URINE BACTERIA RARE (<OCC); URINE BILIRUBIN NEGATIVE (NEGATIVE); URINE BLOOD NEGATIVE (NEGATIVE); URINE CLARITY Clear (Clear); URINE COLOR Yellow (YELLOW); URINE GLUCOSE (UA) NORMAL (Normal); URINE PROTEIN NEGATIVE (NEGATIVE); URINE UROBILINOGEN NORMAL mg/dL (0.2-1.0)
[2017-08-18 10:47] LABS: URINE LEUKOCYTE ESTERASE 1+ Leu/uL (Negative)
--- NOTE | 2017-08-18 10:55 | C.PDOC ---
History Of Present Illness 26 year old female with hx of lupus presents to the emergency department with complaints of vaginal discharge as well as back and abdominal pain that she was seen for before. Patient's previous visit to the ER was on 08-13-17, during which an Ultrasound was performed with unremarkable results. Patient believes that she is experiencing pelvic inflammatory disease, as she had a previous diagnosis of it. She denies being sexually active at this time. Patient denies, nausea, vomiting, fever, chills, and states that she currently has a partner with whom she has unprotected sex. Time Seen by Provider: 08/18/17 10:00 Chief Complaint (Nursing): Female Genitourinary History Per: Patient History/Exam Limitations: no limitations Onset/Duration Of Symptoms: Days Location Of Pain/Discomfort: RLQ (right pelvic), Other (chest pain) Quality Of Discomfort: "Pain" ( ) Associated Symptoms: Back Pain, Other (vaginal discharge). denies: Fever, Chills, Nausea, Vomiting Past Medical History Reviewed: Historical Data, Nursing Documentation, Vital Signs Vital Signs: Last Vital Signs Temp 98.2 F 08/18/17 09:30 Pulse 116 H 08/18/17 09:30 Resp 18 08/18/17 09:30 BP 119/82 08/18/17 09:30 Pulse Ox 100 08/18/17 11:09 - Medical History PMH: Arthritis, Asthma, HTN (controlled no meds per pt), Peripheral Edema (FROM FRACTURE), Rheumatoid Arthritis (SLE '05), Seizures (FEBRILE) Denies: Chronic Kidney Disease Surgical History: Endoscopy - [facility] Procedures FUSION OF LEFT ANKLE JOINT WITH INT FIX, OPEN APPROACH (11/08/15) INJECT/INFUSE NEC (03/22/14) REMOVAL OF SYNTH SUB FROM L LOW EXTREM, OPEN APPROACH (09/20/16) SUPPLEMENT LEFT TIBIA WITH SYNTH SUB, OPEN APPROACH (09/20/16) Family History: States: No Known Family Hx - Social History Hx Tobacco Use: No Hx Alcohol Use: No Hx Substance Use: No - Immunization History Hx Tetanus Toxoid Vaccination: No Hx Influenza Vaccination: Yes Hx Pneumococcal Vaccination: No Review Of Systems Except As Marked, All Systems Reviewed And Found Negative. Constitutional: Negative for: Fever, Chills Gastrointestinal: Positive for: Abdominal Pain. Negative for: Nausea, Vomiting Genitourinary: Positive for: Vaginal Discharge Musculoskeletal: Positive for: Back Pain Physical Exam - Physical Exam Skin: Normal Color, Warm Head: Atraumatic Respiratory: Normal Breath Sounds Gastrointestinal/Abdominal: Tenderness (Right lower abdominal region) Back: CVA Tenderness (noted as mild and towards the right) Pelvic: Normal External Exam, Normal Bimanual Exam, No Vaginal Bleeding, No Vaginal Discharge, No Cervical Motion Tenderness ED Course And Treatment O2 Sat by Pulse Oximetry: 100 (RA) Pulse Ox Interpretation: Normal Medical Decision Making Medical Decision Making: Plan: Motrin 600mg PO Tylenol 975mg PO Urinalysis to rule out . Differential Diagnoses: Ectopic (ruled out via urinalysis) Ovarian Cysts Pelvic Inflammatory Disease Rhenal Colic Disposition Counseled Patient/Family Regarding: Studies Performed, Need For Followup, Rx Given - Disposition Disposition: HOME/ ROUTINE Disposition Time: 11:03 Condition: STABLE Additional Instructions: Follow up with your INSURANCE ADMINISTRATOR. Prescriptions: Ibuprofen [Motrin] 600 mg PO TID #15 tab Instructions: Acute Pelvic Pain (DC) Forms: General Discharge Instructions, [facility] ([place]ian), Work Excuse - POA Present On Arrival: None - Clinical Impression Clinical Impression: Pelvic pain - Scribe Statement The provider has reviewed the documentation as recorded by the Scribe (Ryan Stockton) Provider Attestation: All medical record entries made by the Scribe were at my direction and personally dictated by me. I have reviewed the chart and agree that the record accurately reflects my personal performance of the history, physical exam, medical decision making, and the department course for this patient. I have also personally directed, reviewed, and agree with the discharge instructions and disposition.
== END 2017-08-18 11:17 | disposition home or self-care (01) ==
LOC: C.ER 09:24
DX: R10.2 Pelvic and perineal pain (principal); M06.9 Rheumatoid arthritis, unspecified; M32.9 Systemic lupus erythematosus, unspecified; I10 Essential (primary) hypertension

== ENCOUNTER 2017-09-18 14:23 | Emergency (ER) | payer MEDICAID ==
[2017-09-18 14:23] VITALS: BMI 28.3
[2017-09-18] MEDS ORDERED: Albuterol 0.083% Inhal Sol (2.5 mg/3 mL) UD ONE (17:31)
--- NOTE | 2017-09-18 17:31 | RAD ---
HISTORY: COMPARISON: CT chest without contrast from 06/26 2017 TECHNIQUE: Chest PA and lateral FINDINGS: LINES AND TUBES: None. LUNG AND PLEURA: The lungs are well inflated and clear. No pleural effusion or pneumothorax. HEART AND MEDIASTINUM: The heart is not enlarged. The hilar and mediastinal contours are within normal limits. SKELETAL STRUCTURES: The bony structures are within normal limits for the patient's age. VISUALIZED UPPER ABDOMEN: Normal. OTHER FINDINGS: None. IMPRESSION: No active pulmonary disease.
--- NOTE | 2017-09-18 17:42 | C.PDOC ---
History Of Present Illness 26yo female with history of asthma, lupus, presents to ER for evaluation of shortness of breath since she climbed up 7 flights of stairs. She reports she feels short of breath even after resting for a long period of time. Patient was evaluated by her PMD and informed to come to the ER earlier in the day but she elected to come now. She also states she feels her symptoms are due to a lupus flare up; currently taking prednisone 5mg for the lupus. She denies any fever, chills, chest pain, light headedness, weakness, and offers no other medical complaints. PMD: Dr. Johnson Time Seen by Provider: 09/18/17 15:52 Chief Complaint (Nursing): GI Problem History Per: Patient History/Exam Limitations: no limitations Past Medical History Reviewed: Historical Data, Nursing Documentation, Vital Signs Vital Signs: Last Vital Signs Temp 98.1 F 09/18/17 14:58 Pulse 103 H 09/18/17 14:58 Resp 18 09/18/17 14:58 BP 128/81 09/18/17 14:58 Pulse Ox 100 09/18/17 17:47 - Medical History PMH: Arthritis, Asthma, HTN (controlled no meds per pt), Peripheral Edema (FROM FRACTURE), Rheumatoid Arthritis (SLE '05), Seizures (FEBRILE) Denies: Chronic Kidney Disease Surgical History: Endoscopy - [facility] Procedures FUSION OF LEFT ANKLE JOINT WITH INT FIX, OPEN APPROACH (11/08/15) INJECT/INFUSE NEC (03/22/14) REMOVAL OF SYNTH SUB FROM L LOW EXTREM, OPEN APPROACH (09/20/16) SUPPLEMENT LEFT TIBIA WITH SYNTH SUB, OPEN APPROACH (09/20/16) Family History: States: No Known Family Hx - Social History Hx Tobacco Use: No Hx Alcohol Use: No Hx Substance Use: No - Immunization History Hx Tetanus Toxoid Vaccination: No Hx Influenza Vaccination: Yes Hx Pneumococcal Vaccination: No Review Of Systems Except As Marked, All Systems Reviewed And Found Negative. Constitutional: Positive for: Malaise (generalized malaise). Negative for: Fever, Chills Cardiovascular: Negative for: Chest Pain Respiratory: Positive for: Shortness of Breath Physical Exam - Physical Exam Appears: Non-toxic, No Acute Distress Skin: Normal Color, Warm, Dry Head: Atraumatic, Normacephalic Eye(s): bilateral: Normal Inspection Neck: Normal ROM, Supple Chest: Symmetrical, No Tenderness Cardiovascular: Rhythm Regular Respiratory: Normal Breath Sounds, No Wheezing Gastrointestinal/Abdominal: Normal Exam, Soft, No Tenderness Back: Normal Inspection Extremity: Normal ROM, No Pedal Edema Neurological/Psych: Oriented x3 ED Course And Treatment - Laboratory Results Result Diagrams: 09/18/17 18:02 09/18/17 18:02 O2 Sat by Pulse Oximetry: 100 (RA) Pulse Ox Interpretation: Normal - Radiology CXR: Interpreted by Me CXR Interpretation: Yes: No Acute Disease Reevaluation Time: 18:55 Reassessment Condition: Improved (APPEARS COMFORTABLE NARD. DC MEDROL DOSE PACK FU DR OROSCO) Medical Decision Making Medical Decision Making: Plan: -- Labs -- Albuterol 2.5mg INH -- Urinalysis, Upreg Disposition Counseled Patient/Family Regarding: Studies Performed, Diagnosis, Need For Followup, Rx Given - Disposition Referrals: Mike Orosco MD [Staff Provider] - Disposition: HOME/ ROUTINE Disposition Time: 18:55 Condition: IMPROVED Prescriptions: Methylprednisolone [Medrol] 4 mg PO DAILY #1 packet Instructions: Lupus (DC) Forms: [employer] ([place]), Work Excuse - Clinical Impression Clinical Impression: Myalgia, Asthma exacerbation, Lupus (systemic lupus erythematosus) - Scribe Statement The provider has reviewed the documentation as recorded by the Scribe (Eufemia Chamberlain) Provider Attestation: All medical record entries made by the Scribe were at my direction and personally dictated by me. I have reviewed the chart and agree that the record accurately reflects my personal performance of the history, physical exam, medical decision making, and the department course for this patient. I have also personally directed, reviewed, and agree with the discharge instructions and disposition.
[2017-09-18 17:47] LABS: SQUAMOUS EPITHIAL 1 /hpf (0-5); URINE BACTERIA RARE (<OCC); URINE BILIRUBIN NEGATIVE (NEGATIVE); URINE BLOOD NEGATIVE (NEGATIVE); URINE CLARITY Clear (Clear); URINE COLOR Straw (YELLOW); URINE GLUCOSE (UA) NORMAL (Normal); URINE LEUKOCYTE ESTERASE TRACE Leu/uL (Negative); URINE PROTEIN NEGATIVE (NEGATIVE); URINE UROBILINOGEN NORMAL mg/dL (0.2-1.0)
[2017-09-18 17:49] LABS: HCG,QUALITATIVE URINE NEGATIVE (NEGATIVE)
[2017-09-18 18:08] LABS: BASO % 0.2 % (0.0-2.0); EOS % 0.7 % (0.0-4.0); HEMOGLOBIN 13.6 g/dL (11.0-16.0); LYMPH # 0.6 K/uL (1.0-4.3); LYMPH % 8.7 % (20.0-40.0); MEAN CELL VOLUME 90.8 fL (81.0-99.0); MEAN CORPUSCULAR HEMOGLOBIN 30.5 pg (27.0-31.0); MEAN CORPUSCULAR HGB CONC 33.6 g/dL (33.0-37.0); MEAN PLATELET VOLUME 7.5 fL (7.2-11.7); MONO # 0.2 K/uL (0.0-0.8); MONO % 3.5 % (0.0-10.0); NEUT # 5.6 K/uL (1.8-7.0); NEUT % 86.9 % (50.0-75.0); PLATELET COUNT 318 K/uL (130-400); RBC 4.46 Mil/uL (3.80-5.20); RED CELL DISTRIBUTION WIDTH 13.4 % (11.5-14.5); WHITE BLOOD COUNT 6.4 K/uL (4.8-10.8)
[2017-09-18 18:24] LABS: BLOOD UREA NITROGEN 13 mg/dL (7-17); CALCIUM 10.2 mg/dl (8.6-10.4); GFR AFRICAN-AMERICAN > 60; GFR NON-AFRICAN AMERICAN > 60
[2017-09-18 18:40] LABS: LYMPHOCYTE 12 % (20-40); MONOCYTE 5 % (0-10); NEUTROPHIL 83 % (50-75); TOTAL CELLS COUNTED 100
[2017-09-18 18:41] LABS: PLATELET ESTIMATE NORMAL (NORMAL)
[2017-09-18] MEDS: Albuterol 0.083% Inhal Sol (2.5 mg/3 mL) UD INH SCH (18:58)
[2017-09-18 19:14] VITALS: BP 131/85; PULSE 95; RESP 20; TEMP 98.6; O2SAT 97
== END 2017-09-18 19:14 | disposition home or self-care (01) ==
LOC: C.ER 14:23
DX: M32.9 Systemic lupus erythematosus, unspecified (principal); J45.901 Unspecified asthma with (acute) exacerbation; M79.1 Myalgia; I10 Essential (primary) hypertension; M06.9 Rheumatoid arthritis, unspecified

== ENCOUNTER 2017-09-23 11:47 | Emergency (ER) | payer MEDICAID ==
[2017-09-23 11:56] VITALS: BMI 28.1
[2017-09-23 11:59] VITALS: BP 123/86; PULSE 94; RESP 20; TEMP 97.8; O2SAT 100
--- NOTE | 2017-09-23 12:19 | C.PDOC ---
History Of Present Illness 26 year old female presents to the emergency department with complaints of a sore throat since yesterday. Patient reports that she has been experiencing a non-productive cough for the last three days, as well as a hoarse voice. HPI: Influenza Time Seen by Provider: 09/23/17 11:59 Chief Complaint: ENT Problem History Per: Patient Exam Limitations: no limitations Onset/Duration Of Symptoms: Days (3) Symptoms include: sore throat, cough, other (hoarse voice) Past Medical History Reviewed: Historical Data, Nursing Documentation, Vital Signs Vital Signs: Last Vital Signs Temp 97.8 F 09/23/17 11:56 Pulse 94 H 09/23/17 11:56 Resp 20 09/23/17 11:56 BP 123/86 09/23/17 11:56 Pulse Ox 100 09/23/17 11:56 - Medical History PMH: Arthritis, Asthma, HTN (controlled no meds per pt), Peripheral Edema (FROM FRACTURE), Rheumatoid Arthritis (SLE '05), Seizures (FEBRILE) Surgical History: Endoscopy - [facility] Procedures FUSION OF LEFT ANKLE JOINT WITH INT FIX, OPEN APPROACH (11/08/15) INJECT/INFUSE NEC (03/22/14) REMOVAL OF SYNTH SUB FROM L LOW EXTREM, OPEN APPROACH (09/20/16) SUPPLEMENT LEFT TIBIA WITH SYNTH SUB, OPEN APPROACH (09/20/16) Family History: States: No Known Family Hx - Social History Hx Tobacco Use: No Hx Alcohol Use: No Hx Substance Use: No - Immunization History Hx Tetanus Toxoid Vaccination: No Hx Influenza Vaccination: Yes Hx Pneumococcal Vaccination: No Review Of Systems Constitutional: Negative for: Fever Eyes: Negative for: Redness ENT: Positive for: Throat Pain Cardiovascular: Negative for: Chest Pain, Palpitations Respiratory: Positive for: Cough. Negative for: Shortness of Breath, Sputum Skin: Negative for: Rash Neurological: Negative for: Headache Physical Exam - Physical Exam Appears: Non-toxic, No Acute Distress Skin: Normal Color, Warm, Dry Head: Atraumatic, Normacephalic Eye(s): bilateral: Normal Inspection, EOMI Ear(s): Bilateral: Normal Nose: Normal Oral Mucosa: Moist Tongue: Normal Appearing Throat: Normal, No Erythema, No Exudate, No Drooling, No Mass Neck: Normal ROM Chest: Symmetrical Cardiovascular: Rhythm Regular, No Murmur Respiratory: Normal Breath Sounds, No Rales, No Rhonchi, No Wheezing Extremity: Bilateral: Atraumatic, Normal ROM Neurological/Psych: Oriented x3, Normal Speech Gait: Steady Medical Decision Making Medical Decision Making: Plan: Throat Culture Rapid Strep Group A Rapid strep was negative. Patient remained afebrile in no acute distress. Patient feels comfortable going home and will be discharged. Patient given follow up instructions. Instructed to return to ER if symptoms worsen or new symptoms arise. - ECG O2 Sat by Pulse Oximetry: 100 (RA) Pulse Ox Interpretation: Normal Disposition Counseled Patient/Family Regarding: Diagnosis, Need For Followup - Disposition Referrals: Krishna Johnson APN [Non-Staff] - Disposition: HOME/ ROUTINE Disposition Time: 12:28 Condition: STABLE Additional Instructions: Rx sent to [facility]. Follow up with your primary medical doctor or clinic in 2-5 days for further evaluation. Take medications as prescribed. Return to the emergency department at any time if symptoms persist or worsen. Prescriptions: Benzocaine/Menthol [Cepacol Sore Throat] 1 shayan MM Q2 #30 shayan Benzonatate [Tessalon Perles] 100 mg PO TID #30 sgl Instructions: Viral Upper Respiratory Infection, Adult (DC) Forms: [employer] ([place]) - POA Present On Arrival: None - Clinical Impression Clinical Impression: Upper respiratory infection, Viral pharyngitis - PA / SYSTEMS ARCHITECT / Resident Statement MD/DO has reviewed & agrees with the documentation as recorded. - Scribe Statement The provider has reviewed the documentation as recorded by the Scribe (Ryan Stockton) All medical record entries made by the Scribe were at my direction and personally dictated by me. I have reviewed the chart and agree that the record accurately reflects my personal performance of the history, physical exam, medical decision making, and the department course for this patient. I have also personally directed, reviewed, and agree with the discharge instructions and disposition.
== END 2017-09-23 12:43 | disposition home or self-care (01) ==
LOC: C.ER 11:47
DX: J02.8 Acute pharyngitis due to other specified organisms (principal)

== ENCOUNTER 2017-11-08 09:01 | Emergency (ER) | payer MEDICAID ==
[2017-11-08 09:01] VITALS: BMI 28.1
[2017-11-08 09:46] VITALS: O2SAT 100
[2017-11-08] MEDS ORDERED: Sodium Chloride 0.9% 1,000 ML IV ONE (10:22)
[2017-11-08] MEDS ORDERED: Sodium Chloride 0.9% 1,000 ML ONE ×2 (10:51→11:19)
[2017-11-08 11:14] LABS: HCG,QUALITATIVE URINE NEGATIVE (NEGATIVE)
[2017-11-08 11:19] LABS: SQUAMOUS EPITHIAL 4 /hpf (0-5); URINE BACTERIA RARE (<OCC); URINE BILIRUBIN NEGATIVE (NEGATIVE); URINE BLOOD NEGATIVE (NEGATIVE); URINE CLARITY Clear (Clear); URINE COLOR Yellow (YELLOW); URINE GLUCOSE (UA) NORMAL (Normal); URINE LEUKOCYTE ESTERASE 1+ Leu/uL (Negative); URINE PROTEIN NEGATIVE (NEGATIVE); URINE UROBILINOGEN NORMAL mg/dL (0.2-1.0)
--- NOTE | 2017-11-08 11:50 | C.PDOC ---
History Of Present Illness 26yo female with PMHx of SLE, recently diagnosed with a renal stone, comes to ER for evaluation of right flank pain radiating to her groin area. She reports the pain has been intermittently present for the past few months and states she went to a different ER 1 month ago when she was diagnosed with right sided renal stone "might have passed it" and UTI, and reports she completed the antibiotic treatment. Pt states the pain is localized over Right flank area, intermittent, not related to movement, food intake or urination or BM. Otherwise , pt denies fever, chills, headache, dizziness, CP, SOB, dyspnea, N/V/D, hematuria, denies change in appetite or food intolerance, denies any other active medical complaints. FYI: pt was seen by PMD week ago and has Rx: US renal scheduled for tomorrow. " I need to know what is wrong with me". Time Seen by Provider: 11/08/17 09:30 Chief Complaint (Nursing): Abdominal Pain History Per: Patient History/Exam Limitations: no limitations Onset/Duration Of Symptoms: Days, Intermittent Episodes, Persistent Current Symptoms Are (Timing): Still Present Location Of Pain/Discomfort: Other (right flank) Quality Of Discomfort: "Pain" Associated Symptoms: denies: Fever, Chills, Nausea, Vomiting, Diarrhea, Back Pain Additional History Per: Patient Abnormal Vaginal Bleeding: No Past Medical History Reviewed: Historical Data, Nursing Documentation, Vital Signs Vital Signs: Last Vital Signs Temp 98.6 F 11/08/17 09:41 Pulse 88 11/08/17 09:41 Resp 17 11/08/17 09:41 BP 136/82 11/08/17 09:41 Pulse Ox 100 11/08/17 12:04 - Medical History PMH: Arthritis, Asthma, HTN (controlled no meds per pt), Peripheral Edema (FROM FRACTURE), Rheumatoid Arthritis (SLE '05), Seizures (FEBRILE) Denies: Chronic Kidney Disease Surgical History: Endoscopy - [facility] Procedures FUSION OF LEFT ANKLE JOINT WITH INT FIX, OPEN APPROACH (11/08/15) INJECT/INFUSE NEC (03/22/14) REMOVAL OF SYNTH SUB FROM L LOW EXTREM, OPEN APPROACH (09/20/16) SUPPLEMENT LEFT TIBIA WITH SYNTH SUB, OPEN APPROACH (09/20/16) Family History: States: No Known Family Hx - Social History Hx Tobacco Use: No Hx Alcohol Use: No Hx Substance Use: No - Immunization History Hx Tetanus Toxoid Vaccination: No Hx Influenza Vaccination: Yes Hx Pneumococcal Vaccination: No Review Of Systems Except As Marked, All Systems Reviewed And Found Negative. Constitutional: Negative for: Fever, Chills Cardiovascular: Negative for: Chest Pain Respiratory: Negative for: Shortness of Breath Gastrointestinal: Positive for: Other (right flank pain). Negative for: Nausea , Vomiting, Abdominal Pain, Diarrhea Genitourinary: Negative for: Dysuria, Frequency, Hematuria, Vaginal Bleeding, Pelvic Pain Musculoskeletal: Negative for: Back Pain Neurological: Negative for: Headache Physical Exam - Physical Exam Appears: Well, Non-toxic, No Acute Distress Skin: Normal Color, Warm, Dry, No Rash Head: Normacephalic Eye(s): bilateral: PERRL Nose: No Flaring, No Discharge Oral Mucosa: Moist, No Drooling Tongue: Normal Appearing Lips: Normal Appearing Throat: No Erythema, No Drooling Neck: Trachea Midline, Supple Cardiovascular: Rhythm Regular, No Friction Rub, No Murmur, No JVD, Other ((-) carotid bruits B/L) Respiratory: No Decreased Breath Sounds, No Accessory Muscle Use, No Stridor, No Wheezing Gastrointestinal/Abdominal: Soft, Tenderness (mild suprapubic), No Organomegaly , No Distention, No Guarding, No Rebound Back: No CVA Tenderness, No Vertebral Tenderness, No Paraspinal Tenderness, Other (Right flank tenderness) Extremity: Normal ROM, No Deformity, No Swelling Neurological/Psych: Oriented x3, Normal Speech ED Course And Treatment - Laboratory Results Result Diagrams: 11/08/17 11:49 11/08/17 11:49 Lab Interpretation: Normal Urine POC: Negative O2 Sat by Pulse Oximetry: 100 (RA) Pulse Ox Interpretation: Normal - CT Scan/US CT abd/pelvis Other Rad Studies (CT/US): Radiology Report Reviewed CT/US Interpretation: Creator : Jo-Ann Johnson. Dictator : Boby Marie MD. Biopharmaceutical Rep : Hearing Aid Fitter : Boby Marie MD. Approver2 : Report Date : 11/08/2017 12:25:43. My Comment : . Date of service: 11/08/2017. PROCEDURE: CT Abdomen and Pelvis without intravenous contrast. HISTORY: RIGHT FLANK/GROIN PAIN. COMPARISON: None. TECHNIQUE: Contiguous images were obtained from the domes of the diaphragms to the upper thighs without the administration of intravenous contrast. Oral contrast was not administered. Radiation dose: Total exam DLP = 516.5 mGy-cm. This CT exam was performed using one or more of the following dose reduction techniques: Automated exposure control, adjustment of the mA and/or kV according to patient size, and/ or use of iterative reconstruction technique. FINDINGS: LOWER THORAX: Unremarkable. LIVER: Unremarkable. No gross lesion or ductal dilatation. GALLBLADDER AND BILE DUCTS: Cholelithiasis without gallbladder wall thickening or pericholecystic fluid. PANCREAS: Unremarkable. No gross lesion or ductal dilatation. SPLEEN: Unremarkable. ADRENALS: Unremarkable. No mass. KIDNEYS AND URETERS: Unremarkable. No hydronephrosis. No solid mass. VASCULATURE: Unremarkable. No aortic aneurysm. BOWEL: Unremarkable. No obstruction. No gross mural thickening. APPENDIX: Unremarkable. Normal appendix. PERITONEUM: Unremarkable. No free fluid. No free air. LYMPH NODES: Unremarkable. No enlarged lymph nodes. BLADDER: Unremarkable. REPRODUCTIVE: Unremarkable. BONES: Bilateral hip arthroplasties. OTHER FINDINGS: None. IMPRESSION: No obstructive uropathy or evidence of recently passed genitourinary calculus. Normal appendix. Progress Note: Labs ordered. CT Abdomen/Pelvis w/o contrast ordered. Patient given IV fluids and Toradol. On re-evaluation, pt is afebrile, hemodynamicaly stable. Non-toxic, tolerate Po well in ED. ENT: no acute findings. neck: Supple, (-) JVD. Lungs: CTA B/L, BS equal B/L. Abd: benign, (-) guarding, (-) rebound. back: (-) CVA tenderness. Blood work review, appears normal. UA (+) WBC. CT abd/pelvis review, no acute abnormalities. Pt has clinical findings c/ w Right flank pain, UTI. Pt advised. ref. to f/u with PMD in 2 days for re- eval. return if any worseningor new changes. Disposition Counseled Patient/Family Regarding: Studies Performed, Diagnosis, Need For Followup, Rx Given - Disposition Referrals: Jessica Cline MD [Medical Doctor] - Disposition: HOME/ ROUTINE Disposition Time: 13:25 Condition: STABLE Additional Instructions: Follow up with PMD in 1-2 days for re-evaluation. return to ED if any worsening or new changes. Prescriptions: Nitrofurantoin Macrocrystals [Macrobid] 1 cap PO BID #14 cap Instructions: Flank Pain, Urinary Tract Infections in Adults Forms: [facility] (Estonian) - Clinical Impression Clinical Impression: Flank pain, UTI (urinary tract infection) - PA / AUTOMOTIVE PRODUCT ENGINEER / Resident Statement MD/DO has reviewed & agrees with the documentation as recorded. - Scribe Statement The provider has reviewed the documentation as recorded by the Ashley Chamberlain Provider Attestation: All medical record entries made by the Xenaibtosha were at my direction and personally dictated by me. I have reviewed the chart and agree that the record accurately reflects my personal performance of the history, physical exam, medical decision making, and the department course for this patient. I have also personally directed, reviewed, and agree with the discharge instructions and disposition.
[2017-11-08 12:00] LABS: BASO # 0.1 K/uL (0.0-0.2); BASO % 0.9 % (0.0-2.0); EOS % 0.4 % (0.0-4.0); HEMOGLOBIN 13.8 g/dL (11.0-16.0); LYMPH # 1.8 K/uL (1.0-4.3); LYMPH % 22.8 % (20.0-40.0); MEAN PLATELET VOLUME 7.1 fL (7.2-11.7); MONO # 0.8 K/uL (0.0-0.8); MONO % 9.8 % (0.0-10.0); NEUT # 5.2 K/uL (1.8-7.0); NEUT % 66.1 % (50.0-75.0); RBC 4.59 Mil/uL (3.80-5.20); RED CELL DISTRIBUTION WIDTH 13.1 % (11.5-14.5); WHITE BLOOD COUNT 7.8 K/uL (4.8-10.8)
[2017-11-08 12:09] LABS: INR 1.1; PROTHROMBIN TIME 11.6 SECONDS (9.7-12.2)
[2017-11-08 12:11] LABS: ALB/GLOB RATIO 1.5 (1.0-2.1); ALBUMIN 4.6 g/dL (3.5-5.0); ALT/SGPT 28 U/L (9-52); AST/SGOT 27 U/L (14-36); BLOOD UREA NITROGEN 16 mg/dL (7-17); GFR AFRICAN-AMERICAN > 60; GFR NON-AFRICAN AMERICAN > 60; LIPASE 157 U/L (23-300)
--- NOTE | 2017-11-08 12:59 | CT ---
Date of service: 11/08/2017 PROCEDURE: CT Abdomen and Pelvis without intravenous contrast HISTORY: RIGHT FLANK/GROIN PAIN COMPARISON: None. TECHNIQUE: Contiguous images were obtained from the domes of the diaphragms to the upper thighs without the administration of intravenous contrast. Oral contrast was not administered. Radiation dose: Total exam DLP = 516.5 mGy-cm. This CT exam was performed using one or more of the following dose reduction techniques: Automated exposure control, adjustment of the mA and/or kV according to patient size, and/or use of iterative reconstruction technique. FINDINGS: LOWER THORAX: Unremarkable. LIVER: Unremarkable. No gross lesion or ductal dilatation. GALLBLADDER AND BILE DUCTS: Cholelithiasis without gallbladder wall thickening or pericholecystic fluid. PANCREAS: Unremarkable. No gross lesion or ductal dilatation. SPLEEN: Unremarkable. ADRENALS: Unremarkable. No mass. KIDNEYS AND URETERS: Unremarkable. No hydronephrosis. No solid mass. VASCULATURE: Unremarkable. No aortic aneurysm. BOWEL: Unremarkable. No obstruction. No gross mural thickening. APPENDIX: Unremarkable. Normal appendix. PERITONEUM: Unremarkable. No free fluid. No free air. LYMPH NODES: Unremarkable. No enlarged lymph nodes. BLADDER: Unremarkable. REPRODUCTIVE: Unremarkable. BONES: Bilateral hip arthroplasties. OTHER FINDINGS: None. IMPRESSION: No obstructive uropathy or evidence of recently passed genitourinary calculus. Normal appendix.
[2017-11-08 14:04] VITALS: BP 124/80; PULSE 68; RESP 18; TEMP 98.1
== END 2017-11-08 14:04 | disposition home or self-care (01) ==
LOC: C.ER 09:01
DX: N39.0 Urinary tract infection, site not specified (principal); R10.9 Unspecified abdominal pain
CPT/HCPCS: 74176; 80053; 81001; 83690; 84703; 85025; 85610; 85730; 87086; 96361; 96374; 99284; J1885; J7030

== ENCOUNTER 2017-11-29 09:46 | Emergency (ER) | payer MEDICAID ==
[2017-11-29 09:54] VITALS: BMI 27.8
[2017-11-29 09:55] VITALS: RESP 18
[2017-11-29 10:14] LABS: HCG,QUALITATIVE URINE NEGATIVE (NEGATIVE)
[2017-11-29 10:17] LABS: SQUAMOUS EPITHIAL 1 /hpf (0-5); URINE BACTERIA MANY (<OCC); URINE BILIRUBIN NEGATIVE (NEGATIVE); URINE BLOOD 3+ (NEGATIVE); URINE CLARITY Hazy (Clear); URINE COLOR Yellow (YELLOW); URINE GLUCOSE (UA) NORMAL (Normal); URINE LEUKOCYTE ESTERASE 3+ Leu/uL (Negative); URINE PROTEIN NEGATIVE (NEGATIVE); URINE UROBILINOGEN NORMAL mg/dL (0.2-1.0)
[2017-11-29] MEDS ORDERED: Sodium Chloride 0.9% 1,000 ML IV STA (10:29)
[2017-11-29] MEDS ORDERED: Sodium Chloride 0.9% 1,000 ML ONE (10:51)
[2017-11-29 11:00] LABS: BASO # 0.1 K/uL (0.0-0.2); BASO % 0.7 % (0.0-2.0); EOS % 0.4 % (0.0-4.0); HEMOGLOBIN 13.2 g/dL (11.0-16.0); LYMPH # 1.4 K/uL (1.0-4.3); LYMPH % 15.3 % (20.0-40.0); MEAN CELL VOLUME 90.8 fL (81.0-99.0); MEAN CORPUSCULAR HEMOGLOBIN 30.2 pg (27.0-31.0); MEAN CORPUSCULAR HGB CONC 33.2 g/dL (33.0-37.0); MEAN PLATELET VOLUME 7.7 fL (7.2-11.7); MONO # 0.7 K/uL (0.0-0.8); MONO % 7.7 % (0.0-10.0); NEUT # 6.9 K/uL (1.8-7.0); NEUT % 75.9 % (50.0-75.0); RBC 4.37 Mil/uL (3.80-5.20); RED CELL DISTRIBUTION WIDTH 13.2 % (11.5-14.5); WHITE BLOOD COUNT 9.1 K/uL (4.8-10.8)
[2017-11-29 11:29] LABS: ALB/GLOB RATIO 1.3 (1.0-2.1); ALBUMIN 4.1 g/dL (3.5-5.0); ALT/SGPT 31 U/L (9-52); AMYLASE 101 U/L (30-110); AST/SGOT 34 U/L (14-36); BLOOD UREA NITROGEN 18 mg/dL (7-17); CALCIUM 9.5 mg/dl (8.6-10.4); GFR AFRICAN-AMERICAN > 60; GFR NON-AFRICAN AMERICAN > 60; LIPASE 92 U/L (23-300)
[2017-11-29] MEDS ORDERED: cefTRIAXone IV 1 gm in Dextros 50 ML IVPB ONE (11:56)
--- NOTE | 2017-11-29 12:51 | C.PDOC ---
History Of Present Illness 26-year-old female, presents to the emergency department with complaints of UTI. Patient states she was seen here and given Rx for Macrobid but it is not working, prompting her to return for re-evaluation. She also notes mild associated nausea. Denies fever, vomiting, diarrhea, chest pain or any other associated symptoms. No other complaints at this time. Chief Complaint (Nursing): Abdominal Pain History Per: Patient History/Exam Limitations: no limitations Onset/Duration Of Symptoms: Days Current Symptoms Are (Timing): Still Present Severity: Moderate Past Medical History Reviewed: Historical Data, Nursing Documentation, Vital Signs Vital Signs: Last Vital Signs Temp 98.2 F 11/29/17 13:31 Pulse 81 11/29/17 13:31 Resp 18 11/29/17 13:31 BP 118/80 11/29/17 13:31 Pulse Ox 99 11/29/17 14:48 - Medical History PMH: Arthritis, Asthma, HTN (controlled no meds per pt), Peripheral Edema (FROM FRACTURE), Rheumatoid Arthritis (SLE '05), Seizures (FEBRILE) Denies: Chronic Kidney Disease Surgical History: Endoscopy - [facility] Procedures FUSION OF LEFT ANKLE JOINT WITH INT FIX, OPEN APPROACH (11/08/15) INJECT/INFUSE NEC (03/22/14) REMOVAL OF SYNTH SUB FROM L LOW EXTREM, OPEN APPROACH (09/20/16) SUPPLEMENT LEFT TIBIA WITH SYNTH SUB, OPEN APPROACH (09/20/16) Family History: States: No Known Family Hx - Social History Hx Tobacco Use: No Hx Alcohol Use: No Hx Substance Use: No - Immunization History Hx Tetanus Toxoid Vaccination: No Hx Influenza Vaccination: Yes Hx Pneumococcal Vaccination: No Review Of Systems Except As Marked, All Systems Reviewed And Found Negative. Constitutional: Negative for: Fever, Chills Gastrointestinal: Negative for: Nausea, Vomiting, Abdominal Pain Musculoskeletal: Negative for: Back Pain Neurological: Negative for: Weakness, Numbness, Headache, Dizziness Physical Exam - Physical Exam Appears: Non-toxic, No Acute Distress Skin: Normal Color, Warm, Dry Head: Atraumatic, Normacephalic Eye(s): bilateral: Normal Inspection, PERRL, EOMI Nose: Normal Oral Mucosa: Moist Lips: Normal Appearing Neck: Normal ROM Cardiovascular: Rhythm Regular, No Murmur Respiratory: Normal Breath Sounds, No Accessory Muscle Use Gastrointestinal/Abdominal: Soft, No Tenderness Back: No CVA Tenderness Extremity: Normal ROM, No Deformity Neurological/Psych: Oriented x3, Normal Speech ED Course And Treatment - Laboratory Results Result Diagrams: 11/29/17 10:52 11/29/17 10:52 O2 Sat by Pulse Oximetry: 99 (RA) Pulse Ox Interpretation: Normal Progress Note: Labs reviewed: UA with signs of UTI, blood work without acute changes. A dose of Rocephin IV ordered. Disposition - Disposition Disposition: HOME/ ROUTINE Disposition Time: 13:08 Condition: STABLE Additional Instructions: Follow up with your PMD within 1-2 days. Return to ED if feel worse. Prescriptions: Cephalexin [cephalexin] 500 mg PO Q6 #28 cap Ondansetron [Zofran Odt] 1 - 2 tab PO .Q4-6H PRN #20 odt PRN Reason: Nausea/Vomiting Instructions: Urinary Tract Infections in Adults Forms: [facility] (Greenlandic) - Clinical Impression Clinical Impression: UTI (urinary tract infection) - Scribe Statement The provider has reviewed the documentation as recorded by the Scribe (Mirella Padilla) All medical record entries made by the Scribe were at my direction and personally dictated by me. I have reviewed the chart and agree that the record accurately reflects my personal performance of the history, physical exam, medical decision making, and the department course for this patient. I have also personally directed, reviewed, and agree with the discharge instructions and disposition.
[2017-11-29 13:42] VITALS: BP 118/80; PULSE 81; TEMP 98.2
[2017-11-29 14:48] VITALS: O2SAT 99
== END 2017-11-29 13:31 | disposition home or self-care (01) ==
LOC: C.ER 09:46
DX: N39.0 Urinary tract infection, site not specified (principal)
CPT/HCPCS: 80053; 81001; 82150; 83690; 84703; 85025; 87086; 87181; 96361; 96365; 96375; 99285; J0696; J2405; J7030

== ENCOUNTER 2018-02-04 13:31 | Emergency (ER) | payer MEDICAID ==
[2018-02-04 13:31] VITALS: BMI 27.8
[2018-02-04 14:05] VITALS: BP 122/86; PULSE 87; RESP 16; TEMP 98.4; O2SAT 100
== END 2018-02-04 15:48 | disposition left against medical advice (07) ==
LOC: C.ER 13:31
DX: Z02.89 Encounter for other administrative examinations (principal); R35.0 Frequency of micturition

== ENCOUNTER 2018-02-04 15:56 | Emergency (ER) | payer MEDICAID ==
[2018-02-04 15:56] VITALS: BMI 27.8
[2018-02-04 16:22] VITALS: O2SAT 100
[2018-02-04 18:32] LABS: HEMOGLOBIN 13.5 g/dL (11.0-16.0); LYMPH # 0.9 K/uL (1.0-4.3); LYMPH % 5.3 % (20.0-40.0); MEAN CELL VOLUME 91.3 fL (81.0-99.0); MEAN CORPUSCULAR HEMOGLOBIN 29.3 pg (27.0-31.0); MEAN CORPUSCULAR HGB CONC 32.1 g/dL (33.0-37.0); MEAN PLATELET VOLUME 7.4 fL (7.2-11.7); MONO # 0.9 K/uL (0.0-0.8); MONO % 5.3 % (0.0-10.0); NEUT # 15.8 K/uL (1.8-7.0); NEUT % 89.4 % (50.0-75.0); PLATELET COUNT 289 K/uL (130-400); RED CELL DISTRIBUTION WIDTH 14.2 % (11.5-14.5); WHITE BLOOD COUNT 17.7 K/uL (4.8-10.8)
[2018-02-04] MEDS ORDERED: Sodium Chloride 0.9% 1,000 ML IV STA (18:33)
[2018-02-04 18:35] LABS: HCG,QUALITATIVE URINE NEGATIVE (NEGATIVE)
[2018-02-04 18:39] LABS: SQUAMOUS EPITHIAL 28 /hpf (0-5); URINE BACTERIA MOD (<OCC); URINE BILIRUBIN NEGATIVE (NEGATIVE); URINE BLOOD NEGATIVE (NEGATIVE); URINE CLARITY Hazy (Clear); URINE COLOR Amber (YELLOW); URINE GLUCOSE (UA) NORMAL (Normal); URINE LEUKOCYTE ESTERASE 3+ Leu/uL (Negative); URINE PROTEIN NEGATIVE (NEGATIVE); URINE UROBILINOGEN NORMAL mg/dL (0.2-1.0)
--- NOTE | 2018-02-04 18:39 | C.PDOC ---
History Of Present Illness 27 y/o F c PMHx Lupus, asthma p/w R flank pain x 5 months. Patient states she has had pain in the suprapubic area that radiates around to the R sided lower back. She describes the pain as worse with movement, sometimes severe, associ ated with decreased appetite and vomiting. She states she went to the ED at least 3 times for this pain, was told she had kidney stone once, negative CT for kidney stone in this ED, diagnosed with UTI twice, has followed up with urology and PMD. Has appointment with PMD and Rheum/nephro tomorrow. Denies fever, chills, chest pain, dyspnea. Time Seen by Provider: 02/04/18 18:09 Chief Complaint (Nursing): Abdominal Pain Past Medical History Vital Signs: Last Vital Signs Temp 98.9 F 02/04/18 16:18 Pulse 94 H 02/04/18 16:18 Resp 18 02/04/18 16:18 BP 129/84 02/04/18 16:18 Pulse Ox 100 02/04/18 16:18 - Medical History PMH: Arthritis, Asthma, HTN (controlled no meds per pt), Peripheral Edema (FROM FRACTURE), Rheumatoid Arthritis (SLE '05), Seizures (FEBRILE) Denies: Chronic Kidney Disease Surgical History: Endoscopy - [facility] Procedures FUSION OF LEFT ANKLE JOINT WITH INT FIX, OPEN APPROACH (11/08/15) INJECT/INFUSE NEC (03/22/14) REMOVAL OF SYNTH SUB FROM L LOW EXTREM, OPEN APPROACH (09/20/16) SUPPLEMENT LEFT TIBIA WITH SYNTH SUB, OPEN APPROACH (09/20/16) Family History: States: No Known Family Hx - Social History Hx Tobacco Use: No Hx Alcohol Use: No Hx Substance Use: No - Immunization History Hx Tetanus Toxoid Vaccination: No Hx Influenza Vaccination: Yes Hx Pneumococcal Vaccination: No Review Of Systems Except As Marked, All Systems Reviewed And Found Negative. Constitutional: Negative for: Fever Cardiovascular: Negative for: Chest Pain Physical Exam - Physical Exam Additional Physical Exam Comments: Constitutional: No acute distress. Head: Normocephalic. Atraumatic. Eyes: PERRL. ENT: Moist mucous membranes. Neck: Supple. Cardiovascular: Regular rate. Radial pulse 2+ bilaterally. Chest: No tenderness. Respiratory: Clear to auscultation bilaterally. GI: Soft. Nontender. Nondistended. Back: No CVA tenderness. Musculoskeletal: No tenderness or swelling of extremities. Skin: No rash. Neurologic: Alert, no focal deficit. ED Course And Treatment - Laboratory Results Result Diagrams: 02/04/18 18:27 02/04/18 18:27 O2 Sat by Pulse Oximetry: 100 (RA) Pulse Ox Interpretation: Normal Medical Decision Making Medical Decision Making: Cipro administered and prescribed. Culture sent. Vital signs normal. Lactate negative. Discharged home, keep appointments for tomorrow. Return to ED for worsening pain, fever, vomiting, dyspnea. Disposition - Disposition Disposition: HOME/ ROUTINE Disposition Time: 19:39 Condition: STABLE Prescriptions: Ciprofloxacin [Cipro] 500 mg PO BID #14 tab Instructions: Urinary Tract Infection, Adult (DC) Forms: [employer] (Afghan) - Clinical Impression Clinical Impression: Urinary tract infection - Scribe Statement The provider has reviewed the documentation as recorded by the Scribtosha Thomas All medical record entries made by the Scribtosha were at my direction and personally dictated by me. I have reviewed the chart and agree that the record accurately reflects my personal performance of the history, physical exam, medical decision making, and the department course for this patient. I have also personally directed, reviewed, and agree with the discharge instructions and disposition.
[2018-02-04] MEDS ORDERED: Sodium Chloride 0.9% 1,000 ML ONE (18:43)
[2018-02-04 18:58] LABS: ALB/GLOB RATIO 1.3 (1.0-2.1); ALBUMIN 4.3 g/dL (3.5-5.0); ALT/SGPT 35 U/L (9-52); AST/SGOT 25 U/L (14-36); BLOOD UREA NITROGEN 24 mg/dL (7-17); CALCIUM 9.9 mg/dl (8.6-10.4); GFR NON-AFRICAN AMERICAN > 60
[2018-02-04 19:01] LABS: LYMPHOCYTE 7 % (20-40); MONOCYTE 2 % (0-10); NEUTROPHIL 91 % (50-75); TOTAL CELLS COUNTED 100
[2018-02-04 19:02] LABS: PLATELET ESTIMATE NORMAL (NORMAL)
[2018-02-04 19:07] LABS: VENOUS BLOOD GAS BASE EXCESS -2.6 mmol/L (0.0-2.0); VENOUS BLOOD GAS PCO2 29 mmHg (40-60); VENOUS BLOOD GAS PO2 56 mm/Hg (30-55); VENOUS BLOOD PH 7.45 (7.32-7.43)
[2018-02-04] MEDS ORDERED: Ciprofloxacin 400mg/200ml D5W 400 MG/200 ML BAG IVPB STA (19:08)
[2018-02-04] MEDS ORDERED: Ciprofloxacin 400mg/200ml D5W 400 MG/200 ML BAG IVPB ONE (19:23)
[2018-02-04 20:10] VITALS: BP 132/69; PULSE 89; RESP 16; TEMP 98.7
== END 2018-02-04 20:13 | disposition home or self-care (01) ==
LOC: C.ER 15:56
DX: N39.0 Urinary tract infection, site not specified (principal); I10 Essential (primary) hypertension
CPT/HCPCS: 80053; 81001; 82803; 84703; 85025; 87086; 96365; 96375; 99284; J0744; J1885; J2405; J7030

== ENCOUNTER 2018-05-17 09:04 | Emergency (ER) | payer MEDICAID ==
[2018-05-17 09:04] VITALS: BMI 27.8
[2018-05-17 09:29] VITALS: RESP 18
[2018-05-17 10:01] LABS: HCG,QUALITATIVE URINE NEGATIVE (NEGATIVE)
[2018-05-17 10:13] LABS: SQUAMOUS EPITHIAL 3 /hpf (0-5); URINE BACTERIA RARE (<OCC); URINE BILIRUBIN NEGATIVE (NEGATIVE); URINE BLOOD NEGATIVE (NEGATIVE); URINE CLARITY Clear (Clear); URINE COLOR Yellow (YELLOW); URINE GLUCOSE (UA) NORMAL (Normal); URINE LEUKOCYTE ESTERASE 1+ Leu/uL (Negative); URINE PROTEIN NEGATIVE (NEGATIVE); URINE UROBILINOGEN NORMAL mg/dL (0.2-1.0)
--- NOTE | 2018-05-17 10:25 | C.PDOC ---
History Of Present Illness 27 year old female with a history of lupus, kidney stones presents to the emergency department with complaints of RLQ abdominal pain which has been radiating to her right lower back for the last 3 days. Patient states that she was evaluated by her PMD yesterday who started her on Methotrexate. Patient reports the pain as crampy, and compares it to labor pain. She states that she has constant nausea, but denies vomiting. Patient reports diarrhea and hematuria yesterday. Patient denies bowel/bladder dysfunction, weakness, and numbness. Patient states that her last period was over a year ago due to her currently being on control. Patient also reports that she is on steroids. Time Seen by Provider: 05/17/18 09:29 Chief Complaint (Nursing): Abdominal Pain History Per: Patient History/Exam Limitations: no limitations Onset/Duration Of Symptoms: Days (3) Current Symptoms Are (Timing): Still Present Location Of Pain/Discomfort: RLQ Radiation Of Pain To:: Back Quality Of Discomfort: Cramping Associated Symptoms: Nausea, Diarrhea, Constipation (hematuria). denies: Vomi ting, Other (bowel/bladder dysfunction, weakness, paresthesia) Last Menstral Period: 1 year ago Past Medical History Reviewed: Historical Data, Nursing Documentation, Vital Signs Vital Signs: Last Vital Signs Temp 98 F 05/17/18 09:26 Pulse 86 05/17/18 09:26 Resp 18 05/17/18 09:26 BP 122/85 05/17/18 09:26 Pulse Ox 97 05/17/18 09:26 - Medical History PMH: Arthritis, Asthma, HTN, Peripheral Edema (FROM FRACTURE), Rheumatoid Arthritis (SLE '05), Seizures (FEBRILE) Denies: Chronic Kidney Disease Surgical History: Endoscopy - [facility] Procedures FUSION OF LEFT ANKLE JOINT WITH INT FIX, OPEN APPROACH (11/08/15) INJECT/INFUSE NEC (03/22/14) REMOVAL OF SYNTH SUB FROM L LOW EXTREM, OPEN APPROACH (09/20/16) SUPPLEMENT LEFT TIBIA WITH SYNTH SUB, OPEN APPROACH (09/20/16) Family History: States: No Known Family Hx - Social History Hx Tobacco Use: No Hx Alcohol Use: No Hx Substance Use: No - Immunization History Hx Tetanus Toxoid Vaccination: No Hx Influenza Vaccination: Yes Hx Pneumococcal Vaccination: No Review Of Systems Except As Marked, All Systems Reviewed And Found Negative. Constitutional: Negative for: Fever, Chills Gastrointestinal: Positive for: Nausea, Abdominal Pain, Diarrhea. Negative for: Vomiting Genitourinary: Positive for: Hematuria Musculoskeletal: Positive for: Back Pain Neurological: Negative for: Weakness, Numbness Physical Exam - Physical Exam Appears: Non-toxic, No Acute Distress, Other (obese) Skin: Normal Color, Warm, Dry Head: Atraumatic, Normacephalic Eye(s): bilateral: Normal Inspection, PERRL, EOMI Oral Mucosa: Moist Neck: Normal, Supple Chest: Symmetrical, No Tenderness Cardiovascular: Rhythm Regular, No Murmur Respiratory: Normal Breath Sounds, No Rales, No Rhonchi, No Wheezing Gastrointestinal/Abdominal: Soft, Tenderness (mild tenderness to palpation to the suprapubic and RLQ area) Back: No Vertebral Tenderness, Paraspinal Tenderness (right lower back) Neurological/Psych: Oriented x3, Normal Speech, Normal Cognition ED Course And Treatment - Laboratory Results Result Diagrams: 05/17/18 10:24 05/17/18 10:24 Lab Results: Urine HCG, Qual Negative (NEGATIVE) 05/17/18 09:50 Urine HCG, Qual Negative (NEGATIVE) 05/17/18 09:50 O2 Sat by Pulse Oximetry: 97 (RA) Pulse Ox Interpretation: Normal - CT Scan/US CT Abdomen and Pelvis Other Rad Studies (CT/US): Read By Radiologist, Radiology Report Reviewed CT/US Interpretation: IMPRESSION: 1. One or 2 punctate intrarenal calculi identified at the mid and lower pole right kidney which are nonobstructive. None is appreciated at the left. No obstructive uropathy bilaterally. 2. Urine bladder is [id number] distended but partially obscured by dense artifact related to bilateral total hip replacement hardware. 3. 3.1 cm right adnexal cyst. Hip replacement hardware also obscures reproductive organs in the pelvis somewhat. Consider follow-up pelvic ultrasound if clinically warranted for added characterization of right adnexal cyst. Medical Decision Making Medical Decision Making: Plan: CT Abdomen and Pelvis CMP Lipase CBC HCG Qualitative Urine Urinalysis Discussed the results of the CT with the patient which showed a right adnexal cyst with no kidney stone, indicating UTI. Patient states that she recently used the bathroom in the ED and saw blood in the urine, patient will be treated for a UTI and instructed to follow-up with her PMD. Patient also instructed to follow- up with a LEASING PROPERTY MANAGER for her adnexal cyst. WE DISCUSSED, IMMEDIATELY RETURN TO THE ER IF YOU HAVE WORSENING PAIN, VOMITING, FEVERS, OR ANY OTHER CONCERNING, WORSENING, NEW OR CONTINUED SYMPTOMS. Disposition Counseled Patient/Family Regarding: Studies Performed, Diagnosis, Need For Followup - Disposition Disposition: HOME/ ROUTINE Disposition Time: 12:10 Condition: STABLE Additional Instructions: KENA REARDON, thank you for letting us take care of you today. Your provider was Gloria Fritz MD and you were treated for ABDOMINAL PAIN. The emergency medical care you received today was directed at your acute symptoms. If you were prescribed any medication, please fill it and take as directed. It may take several days for your symptoms to resolve. Return to the Emergency Department if your symptoms worsen, do not improve, or if you have any other problems. Please contact your doctor in 1-2 days for a follow up appointment. Bring any paperwork you were given at discharge with you along with any medications you are taking to your follow up visit. Our treatment cannot replace ongoing medical care by a primary care provider outside of the emergency department. Thank you for allowing the [facility] team to be part of your care today. Prescriptions: Nitrofurantoin Macrocrystals [Macrobid] 100 mg PO BID #14 cap Instructions: Urinary Tract Infection, Adult (DC), Acute Abdomen (Belly Pain), Adult (DC) Forms: [facility] (Kiswahili), General Discharge Instructions - POA Present On Arrival: None - Clinical Impression Clinical Impression: UTI (urinary tract infection), Abdominal pain - Scribe Statement The provider has reviewed the documentation as recorded by the Scribe (Ryan Stockton) Provider Attestation: All medical record entries made by the Scribe were at my direction and personally dictated by me. I have reviewed the chart and agree that the record accurately reflects my personal performance of the history, physical exam, medical decision making, and the department course for this patient. I have also personally directed, reviewed, and agree with the discharge instructions and disposition.
[2018-05-17 10:36] LABS: NRBC % 0.2 % (0.0-2.0)
[2018-05-17 10:42] LABS: BASO # 0.1 K/uL (0.0-0.2); BASO % 0.6 % (0.0-2.0); EOS % 0.1 % (0.0-4.0); HEMOGLOBIN 13.8 g/dL (11.0-16.0); LYMPH # 1.3 K/uL (1.0-4.3); LYMPH % 12.6 % (20.0-40.0); MEAN CORPUSCULAR HEMOGLOBIN 30.7 pg (27.0-31.0); MEAN CORPUSCULAR HGB CONC 32.6 g/dL (33.0-37.0); MEAN PLATELET VOLUME 8.2 fL (7.2-11.7); MONO % 9.5 % (0.0-10.0); NEUT # 8.2 K/uL (1.8-7.0); NEUT % 77.2 % (50.0-75.0); RBC 4.48 Mil/uL (3.80-5.20); RED CELL DISTRIBUTION WIDTH 13.1 % (11.5-14.5); WHITE BLOOD COUNT 10.6 K/uL (4.8-10.8)
[2018-05-17 10:43] LABS: MEAN CELL VOLUME 94.1 fL (81.0-99.0)
[2018-05-17 11:03] LABS: BLOOD UREA NITROGEN 11 mg/dL (7-17); CALCIUM 9.3 mg/dl (8.6-10.4); GFR NON-AFRICAN AMERICAN > 60; LIPASE 58 U/L (23-300)
[2018-05-17 11:15] LABS: ALB/GLOB RATIO 1.4 (1.0-2.1); ALBUMIN 4.5 g/dL (3.5-5.0); ALT/SGPT 37 U/L (9-52); AST/SGOT 46 U/L (14-36)
--- NOTE | 2018-05-17 11:50 | CT ---
Date of service: 05/17/2018 PROCEDURE: CT Abdomen and Pelvis without intravenous contrast HISTORY: abd pain COMPARISON: Abdomen pelvis CT without contrast 11/17/2017. TECHNIQUE: Helical CT of the abdomen and pelvis was performed without oral or intravenous contrast as per referring physician request. Coronal and sagittal reformats were generated. Contrast dose: None Radiation dose: Total exam DLP = 728.64 mGy-cm. This CT exam was performed using one or more of the following dose reduction techniques: Automated exposure control, adjustment of the mA and/or kV according to patient size, and/or use of iterative reconstruction technique. FINDINGS: LOWER THORAX: Unremarkable. LIVER: Unremarkable. No gross lesion or ductal dilatation. GALLBLADDER AND BILE DUCTS: Cholelithiasis is again is appreciated within the gallbladder, which is mild to mildly distended and otherwise unremarkable. No gross common bile duct dilatation appreciable in this unenhanced exam. PANCREAS: Unremarkable. No gross lesion or ductal dilatation. SPLEEN: Unremarkable. ADRENALS: Unremarkable. No mass. KIDNEYS AND URETERS: A punctate intrarenal calculus is identified at the mid to lower pole right kidney likely correspond to prior lower pole renal colic calculus. A faint additional punctate intrarenal calculus may be present the lower pole right kidney with none seen at the left. No obstructive uropathy bilaterally. No perinephric reaction or fluid collection evident. VASCULATURE: Unremarkable. No aortic aneurysm. No aortic atherosclerotic calcification or mural plaque present. BOWEL: The bowel is not appear obstructed and a moderate amount retained fecal material scattered at the right hemicolon and hepatic flexure. No pericolic or perienteric reactive changes throughout. APPENDIX: Unremarkable. Normal appendix. PERITONEUM: Unremarkable. No free fluid. No free air. LYMPH NODES: Unremarkable. No enlarged lymph nodes. BLADDER: Urinary bladder appears mildly distended, partially obscured by dense artifact related to bilateral total replacement hardware. REPRODUCTIVE: Largely obscured by bilateral hip replacement hardware. A right adnexal cyst is identified in the interval measuring 2.4 x 3.1 cm with none on the left. BONES: Status post bilateral total replacement OTHER FINDINGS: None. IMPRESSION: 1. One or 2 punctate intrarenal calculi identified at the mid and lower pole right kidney which are nonobstructive. None is appreciated at the left. No obstructive uropathy bilaterally. 2. Urine bladder is [id number] distended but partially obscured by dense artifact related to bilateral total hip replacement hardware. 3. 3.1 cm right adnexal cyst. Hip replacement hardware also obscures reproductive organs in the pelvis somewhat. Consider follow-up pelvic ultrasound if clinically warranted for added characterization of right adnexal cyst.
[2018-05-17 12:09] VITALS: BP 138/89; PULSE 74; TEMP 97.6
[2018-05-17 12:13] VITALS: O2SAT 97
== END 2018-05-17 12:45 | disposition home or self-care (01) ==
LOC: C.ER 09:04
DX: R10.31 Right lower quadrant pain (principal); N39.0 Urinary tract infection, site not specified; I10 Essential (primary) hypertension; M06.9 Rheumatoid arthritis, unspecified; M32.9 Systemic lupus erythematosus, unspecified

== ENCOUNTER 2018-06-25 12:28 | Emergency (ER) | payer MEDICAID ==
[2018-06-25 12:28] VITALS: BMI 27.8
[2018-06-25] MEDS ORDERED: Sodium Chloride 0.9% 1,000 ML IV ONE (13:33)
--- NOTE | 2018-06-25 14:05 | C.PDOC ---
History Of Present Illness 27 y/o female with a PMHx of Lupus and HTN presents to the ED complaining of abdominal pain for the past few days. Associated with nausea and vomiting. Pain is worse over the right side. Patient has been seen in the ED numerous times for similar complaint. Of note patient is a poor historian. No fevers. No other complaints. Time Seen by Provider: 06/25/18 13:28 Chief Complaint (Nursing): Abdominal Pain History Per: Patient History/Exam Limitations: no limitations Onset/Duration Of Symptoms: Days Current Symptoms Are (Timing): Still Present Severity: Moderate Location Of Pain/Discomfort: RUQ Associated Symptoms: Nausea, Vomiting Past Medical History Reviewed: Historical Data, Nursing Documentation, Vital Signs Vital Signs: Last Vital Signs Temp 98.4 F 06/25/18 12:45 Pulse 88 06/25/18 12:45 Resp 18 06/25/18 12:45 BP 113/71 06/25/18 12:45 Pulse Ox 96 06/25/18 12:45 - Medical History PMH: Arthritis, Asthma, HTN, Peripheral Edema (FROM FRACTURE), Rheumatoid Arthritis (SLE '05), Seizures (FEBRILE) Denies: Chronic Kidney Disease Surgical History: Endoscopy - [facility] Procedures FUSION OF LEFT ANKLE JOINT WITH INT FIX, OPEN APPROACH (11/08/15) INJECT/INFUSE NEC (03/22/14) REMOVAL OF SYNTH SUB FROM L LOW EXTREM, OPEN APPROACH (09/20/16) SUPPLEMENT LEFT TIBIA WITH SYNTH SUB, OPEN APPROACH (09/20/16) Family History: States: No Known Family Hx - Social History Hx Tobacco Use: No Hx Alcohol Use: No Hx Substance Use: No - Immunization History Hx Tetanus Toxoid Vaccination: No Hx Influenza Vaccination: Yes Hx Pneumococcal Vaccination: No Review Of Systems Except As Marked, All Systems Reviewed And Found Negative. Constitutional: Negative for: Fever, Chills Cardiovascular: Negative for: Chest Pain Respiratory: Negative for: Shortness of Breath Gastrointestinal: Positive for: Nausea, Vomiting, Abdominal Pain. Negative for: Diarrhea, Constipation Musculoskeletal: Negative for: Back Pain Neurological: Negative for: Weakness, Numbness Physical Exam - Physical Exam Appears: Non-toxic, No Acute Distress Skin: Normal Color, Warm, Dry Head: Atraumatic, Normacephalic Eye(s): bilateral: Normal Inspection, PERRL, EOMI Neck: Normal ROM Chest: Symmetrical Cardiovascular: Rhythm Regular, No Murmur Respiratory: Normal Breath Sounds, No Accessory Muscle Use Gastrointestinal/Abdominal: Soft, Tenderness (Mild right-sided tenderness, worse at RUQ), No Guarding, No Rebound Back: Normal Inspection Extremity: Bilateral: Atraumatic, Normal Color And Temperature Neurological/Psych: Oriented x3 ED Course And Treatment - Laboratory Results Result Diagrams: 06/25/18 15:18 06/25/18 15:18 O2 Sat by Pulse Oximetry: 96 (RA) Pulse Ox Interpretation: Normal - CT Scan/US Abdomen/Pelvis CT Other Rad Studies (CT/US): Read By Radiologist, Radiology Report Reviewed CT/US Interpretation: Accession No. : [id number]. Patient Name / ID : ALEXYS Fitzpatrick / [id number]. Exam Date : 06/25/2018 16:25:32 ( Approved ). Study Comment : Sex / Age : F / 27Y. Creator : Jo-Ann Johnson. Dictator : Emir Rinaldi MD. Metal Control Coordinator : Flooring Grader : Emir Rinaldi MD. Approver2 : Report Date : 06/25/2018 16:39:17. My Comment : . Date of service: 06/25/2018. PROCEDURE: CT Abdomen and Pelvis. HISTORY: Right-sided abdominal pain. COMPARISON: Comparison made with CT scan abdomen pelvis 05/17/2018. TECHNIQUE: Contiguous axial images of the abdomen and pelvis performed following intravenous injection of approximately 100 cc Visipaque 320 contrast material. Additional 2D sagittal and coronal reformats generated. Radiation dose: Total exam DLP = 1133.0 mGy-cm. This CT exam was performed using one or more of the following dose reduction techniques: Automated exposure control, adjustment of the mA and/or kV according to patient size, and/or use of iterative reconstruction technique. FINDINGS: LOWER THORAX: Unremarkable. LIVER: The liver exhibits normal size measuring just over 14 cm in CC dimension. No obvious hepatic masses or collections however there appears to be some very minimal fatty infiltration.. Portal and splenic veins are opacified. GALLBLADDER AND BILE DUCTS: Cholelithiasis. PANCREAS: Unremarkable. No mass. No ductal dilatation. SPLEEN: The exhibits normal size and attenuation pattern. ADRENALS: No adrenal lesions. KIDNEYS AND URETERS: Kidneys demonstrate symmetric nephrograms.. Previously noted tiny near punctate calci fication that was seen in the lower pole collecting system right kidney is less well seen on this study.. There is mild columnization of the proximal and mid right ureter. BLADDER: Note that the incompletely distended urinary bladder is partially obscured by crossing streak and beam hardening artifact arising from bilateral total hip replacements. Appears to be some wall thickening which could be due to incomplete distention however recommend urinalysis correlation recommended to exclude cystitis. REPRODUCTIVE: In the evaluation of the uterus is limited due to crossing streak and beam hardening artifact arising from bilateral total hip replacements... Note however that the visualized portions of the uterus appear unremarkable. Previously noted right-sided 3 cm adnexal cyst is no longer visualized approximately has resorbed. The. APPENDIX: Evaluation of the urinary bladder is normal-appearing appendix. BOWEL: Evaluation of the bowel is somewhat limited due to the lack of oral contrast material.. The stomach is incompletely distended with slight thick-walled appearance. Visual ized loops of small bowel exhibit normal contour and caliber. No evidence of acute mechanical small bowel obstruction. Colon appears grossly unremarkable without evidence of definitive mural wall thickening. PERITONEUM: Unremarkable. No fluid collection. No free air. There is a small fat containing umbilical hernia. LYMPH NODES: Unremarkable. No enlarged lymph nodes. VASCULATURE: Unremarkable. No aortic aneurysm. No aortic atherosclerotic calcification or mural plaque present. BONES: Bilateral total hip replacements again noted. Osseous structures otherwise unremarkable. OTHER FINDINGS: None. IMPRESSION: Cholelithiasis. Minimal fatty hepatic infiltration. Punctate calcification lower pole collecting system right kidney seen to better advantage on prior study is less well seen on this study though essentially unchanged. There is mild columnization of the proximal and mid right ureter. Note that the incompletely distended urinary bladder is partially obscured by crossing streak and beam hardening artifact arising from bilateral total hip replacements. Appears to be some wall thickening which could be due to incomplete distention however recommend urinalysis correlation recommended to exclude cystitis. Abdominal US Other Rad Studies (CT/US): Read By Radiologist, Radiology Report Reviewed CT/US Interpretation: Accession No. : [id number]. Patient Name / ID : ALEXYS Fitzpatrick / [id number]. Exam Date : 06/25/2018 14:02:45 ( Approved ). Study Comment : Sex / Age : F / 27Y. Creator : Larry Souza MD. Dictator : Larry Souza MD. Metal Control Coordinator : Flooring Grader : Larry Souza MD. Approver2 : Report Date : 06/25/2018 16:04:12. My Comment : . Date of service: 06/25/2018. HISTORY: ruq pain. COMPARISON: Ultrasound abdomen 05/01/2017. CT abdomen pelvis 05/17/2018 and 11/08/2017. MRI abdomen 06/14/2017.. TECHNIQUE: Sonographic evaluation of the abdomen. FINDINGS: LIVER: Liver demonstrates mild increased echogenicity, likely representing hepatic parenchymal disease or fatty infiltration. This limits evaluation for small masses. There is a 0.8 cm echogenic mass in the right lobe liver, unchanged from prior ultrasound of 05/01/2017. No intrahepatic biliary ductal dilatation is identified. Portal vein is patent with normal hepatopetal flow. GALLBLADDER: The gallbladder is physiologically distended. Multiple gallstones noted in the gallbladder. No gallbladder wall thickening, or pericholecystic fluid is identified.No sonographic Vides's sign was appreciated during the exam. COMMON BILE DUCT: Normal in caliber measuring 0.3 cm. PANCREAS: The visualized portions are unremarkable in echogenicity. The remainder of the pancreas is obscured by bowel gas. RIGHT KIDNEY: Measures 11.7cm. Unremarkable in echogenicity. Nonobstructing 0.4 cm stone noted. No cyst, or hydronephrosis is identified. LEFT KIDNEY: Measures 11.4cm. Unremarkable in echogenicity. No shadowing renal stone, cyst, or hydronephrosis is identified. SPLEEN: Measures 7.9cm. Normal in size and unremarkable in ech otexture. AORTA: No aneurysmal dilatation of the visualized portions. IVC: Visualized portions are unremarkable.. OTHER FINDINGS: None. IMPRESSION: Mildly Echogenic liver, likely representing fatty infiltration or hepatic parenchymal disease. Stable echogenic 0.8 cm mass in the right lobe liver. Differential considerations include hemangioma, adenoma, or other etiology. Recommend follow-up. Cholelithiasis. Non-obstructing right renal stone. Medical Decision Making Medical Decision Making: ro colitis cholecystitis appendicits Plan: - Blood work - Urinalysis - Abdominal US - IV fluids - 975 mg PO Tylenol - 4 mg IV Zofran - 40 mg IV Protonix - Reassess Abdominal US shows non-obstructing stone. Will obtain CT Abdomen/Pelvis. CT report reviewed, see above. Patient counseled regarding findings and course of discharge. us neg for manohar. ct neg. pain improved. no e/o of infection labs neg. pain improve.d stable for dc return preacutions advise.d Disposition Counseled Patient/Family Regarding: Studies Performed, Diagnosis, Need For Followup - Disposition Referrals: Edwin Foster MD [Staff Provider] - Disposition: HOME/ ROUTINE Disposition Time: 17:25 Condition: STABLE Additional Instructions: return to er with worsening symptoms or concerns. Instructions: Gallstones, Acute Abdomen (Belly Pain) Forms: [facility] (Chinese) - POA Present On Arrival: None - Clinical Impression Clinical Impression: Abdominal pain - Scribe Statement The provider has reviewed the documentation as recorded by the Ashley Lane Provider Attestation: All medical record entries made by the Ashley were at my direction and personally dictated by me. I have reviewed the chart and agree that the record accurately reflects my personal performance of the history, physical exam, medical decision making, and the department course for this patient. I have also personally directed, reviewed, and agree with the discharge instructions and disposition.
[2018-06-25 14:30] LABS: HCG,QUALITATIVE URINE NEGATIVE (NEGATIVE)
[2018-06-25 14:35] LABS: SQUAMOUS EPITHIAL 8 /hpf (0-5); URINE BACTERIA RARE (<OCC); URINE BILIRUBIN NEGATIVE (NEGATIVE); URINE BLOOD NEGATIVE (NEGATIVE); URINE CLARITY Hazy (Clear); URINE GLUCOSE (UA) NORMAL (Normal); URINE LEUKOCYTE ESTERASE 2+ Leu/uL (Negative); URINE PROTEIN 1+ mg/dL (NEGATIVE)
[2018-06-25 14:38] LABS: URINE COLOR YELLOW (YELLOW)
[2018-06-25 15:22] LABS: EOS % 0.1 % (0.0-4.0); HEMOGLOBIN 12.4 g/dL (11.0-16.0); LYMPH # 0.5 K/uL (1.0-4.3); LYMPH % 4.5 % (20.0-40.0); MEAN CELL VOLUME 93.6 fL (81.0-99.0); MEAN CORPUSCULAR HEMOGLOBIN 30.2 pg (27.0-31.0); MEAN CORPUSCULAR HGB CONC 32.3 g/dL (33.0-37.0); MEAN PLATELET VOLUME 7.6 fL (7.2-11.7); MONO # 0.2 K/uL (0.0-0.8); MONO % 2.1 % (0.0-10.0); NEUT # 9.8 K/uL (1.8-7.0); NEUT % 93.3 % (50.0-75.0); PLATELET COUNT 271 K/uL (130-400); RBC 4.12 Mil/uL (3.80-5.20); RED CELL DISTRIBUTION WIDTH 13.2 % (11.5-14.5); WHITE BLOOD COUNT 10.6 K/uL (4.8-10.8)
[2018-06-25 15:30] LABS: INR 1.1; PROTHROMBIN TIME 11.8 SECONDS (9.7-12.2)
[2018-06-25 15:33] LABS: ALB/GLOB RATIO 1.5 (1.0-2.1); ALBUMIN 4.4 g/dL (3.5-5.0); BILIRUBIN,DIRECT 0.2 mg/dL (0.0-0.4); BLOOD UREA NITROGEN 14 mg/dL (7-17); CALCIUM 9.6 mg/dl (8.6-10.4); GFR NON-AFRICAN AMERICAN > 60; LIPASE 109 U/L (23-300)
[2018-06-25 15:37] LABS: ALT/SGPT 139 U/L (9-52); AST/SGOT 75 U/L (14-36)
[2018-06-25 15:58] LABS: LYMPHOCYTE 6 % (20-40); MONOCYTE 2 % (0-10); NEUTROPHIL 92 % (50-75); TOTAL CELLS COUNTED 100
[2018-06-25 15:59] LABS: PLATELET ESTIMATE NORMAL (NORMAL)
[2018-06-25] MEDS ORDERED: Iodixanol 320 MG/ML 100 ML BOTTLE IV ONE (16:01)
--- NOTE | 2018-06-25 16:07 | US ---
Date of service: 06/25/2018 HISTORY: ruq pain COMPARISON: Ultrasound abdomen 05/01/2017. CT abdomen pelvis 05/17/2018 and 11/08/2017. MRI abdomen 06/14/2017.. TECHNIQUE: Sonographic evaluation of the abdomen. FINDINGS: LIVER: Liver demonstrates mild increased echogenicity, likely representing hepatic parenchymal disease or fatty infiltration. This limits evaluation for small masses. There is a 0.8 cm echogenic mass in the right lobe liver, unchanged from prior ultrasound of 05/01/2017. No intrahepatic biliary ductal dilatation is identified. Portal vein is patent with normal hepatopetal flow. GALLBLADDER: The gallbladder is physiologically distended. Multiple gallstones noted in the gallbladder. No gallbladder wall thickening, or pericholecystic fluid is identified.No sonographic Vides's sign was appreciated during the exam. COMMON BILE DUCT: Normal in caliber measuring 0.3 cm. PANCREAS: The visualized portions are unremarkable in echogenicity. The remainder of the pancreas is obscured by bowel gas. RIGHT KIDNEY: Measures 11.7cm. Unremarkable in echogenicity. Nonobstructing 0.4 cm stone noted. No cyst, or hydronephrosis is identified LEFT KIDNEY: Measures 11.4cm. Unremarkable in echogenicity. No shadowing renal stone, cyst, or hydronephrosis is identified SPLEEN: Measures 7.9cm. Normal in size and unremarkable in echotexture. AORTA: No aneurysmal dilatation of the visualized portions. IVC: Visualized portions are unremarkable.. OTHER FINDINGS: None. IMPRESSION: Mildly Echogenic liver, likely representing fatty infiltration or hepatic parenchymal disease. Stable echogenic 0.8 cm mass in the right lobe liver. Differential considerations include hemangioma, adenoma, or other etiology. Recommend follow-up. Cholelithiasis. Non-obstructing right renal stone.
[2018-06-25 17:20] VITALS: BP 132/82; PULSE 66; RESP 16; TEMP 98.5
--- NOTE | 2018-06-25 17:25 | CT ---
Date of service: 06/25/2018 PROCEDURE: CT Abdomen and Pelvis. HISTORY: Right-sided abdominal pain. COMPARISON: Comparison made with CT scan abdomen pelvis 05/17/2018 TECHNIQUE: Contiguous axial images of the abdomen and pelvis performed following intravenous injection of approximately 100 cc Visipaque 320 contrast material. Additional 2D sagittal and coronal reformats generated. Radiation dose: Total exam DLP = 1133.0 mGy-cm. This CT exam was performed using one or more of the following dose reduction techniques: Automated exposure control, adjustment of the mA and/or kV according to patient size, and/or use of iterative reconstruction technique. FINDINGS: LOWER THORAX: Unremarkable. LIVER: The liver exhibits normal size measuring just over 14 cm in CC dimension. No obvious hepatic masses or collections however there appears to be some very minimal fatty infiltration.. Portal and splenic veins are opacified. GALLBLADDER AND BILE DUCTS: Cholelithiasis. PANCREAS: Unremarkable. No mass. No ductal dilatation. SPLEEN: The exhibits normal size and attenuation pattern. ADRENALS: No adrenal lesions. KIDNEYS AND URETERS: Kidneys demonstrate symmetric nephrograms.. Previously noted tiny near punctate calcification that was seen in the lower pole collecting system right kidney is less well seen on this study.. There is mild columnization of the proximal and mid right ureter. BLADDER: Note that the incompletely distended urinary bladder is partially obscured by crossing streak and beam hardening artifact arising from bilateral total hip replacements. Appears to be some wall thickening which could be due to incomplete distention however recommend urinalysis correlation recommended to exclude cystitis. REPRODUCTIVE: In the evaluation of the uterus is limited due to crossing streak and beam hardening artifact arising from bilateral total hip replacements... Note however that the visualized portions of the uterus appear unremarkable. Previously noted right-sided 3 cm adnexal cyst is no longer visualized approximately has resorbed. The APPENDIX: Evaluation of the urinary bladder is normal-appearing appendix. BOWEL: Evaluation of the bowel is somewhat limited due to the lack of oral contrast material.. The stomach is incompletely distended with slight thick-walled appearance. Visualized loops of small bowel exhibit normal contour and caliber. No evidence of acute mechanical small bowel obstruction. Colon appears grossly unremarkable without evidence of definitive mural wall thickening. PERITONEUM: Unremarkable. No fluid collection. No free air. There is a small fat containing umbilical hernia. LYMPH NODES: Unremarkable. No enlarged lymph nodes. VASCULATURE: Unremarkable. No aortic aneurysm. No aortic atherosclerotic calcification or mural plaque present. BONES: Bilateral total hip replacements again noted. Osseous structures otherwise unremarkable. OTHER FINDINGS: None. IMPRESSION: Cholelithiasis. Minimal fatty hepatic infiltration. Punctate calcification lower pole collecting system right kidney seen to better advantage on prior study is less well seen on this study though essentially unchanged. There is mild columnization of the proximal and mid right ureter Note that the incompletely distended urinary bladder is partially obscured by crossing streak and beam hardening artifact arising from bilateral total hip replacements. Appears to be some wall thickening which could be due to incomplete distention however recommend urinalysis correlation recommended to exclude cystitis.
[2018-06-25 17:42] VITALS: O2SAT 96
== END 2018-06-25 18:04 | disposition home or self-care (01) ==
LOC: C.ER 12:28
DX: R10.9 Unspecified abdominal pain (principal); I10 Essential (primary) hypertension; M32.9 Systemic lupus erythematosus, unspecified; M06.9 Rheumatoid arthritis, unspecified
CPT/HCPCS: 74177; 76700; 80053; 81001; 81025; 82248; 83690; 84703; 85025; 85610; 85730; 96361; 96374; 96375; 99284; C9113; J2405; J7030; Q9967

== ENCOUNTER 2018-07-02 09:36 | Observation (INO) | payer MEDICAID ==
[2018-07-02] MEDS ORDERED: Sodium Chloride 0.9% 0 ML IV ONE (10:37)
[2018-07-02] MEDS ORDERED: ceFAZolin 1 gm in NS 2 GM/200 ML BAG IVPB ONE (10:37)
[2018-07-02] MEDS ORDERED: Lidocaine/Epinephrine 1% 1:100000 10 ML IJ ONE (10:38)
[2018-07-02] MEDS ORDERED: Bupivacaine HCl 0.25% PF (10 ml) Inj ONE (10:38)
[2018-07-02] MEDS ORDERED: Dexamethasone 4 mg/1 ml ONE (10:39)
[2018-07-02] MEDS ORDERED: Midazolam 2 MG/2 ML VIAL ONE (12:08)
[2018-07-02] MEDS ORDERED: Propofol 10 mg/ml Inj (20 ML) ONE (12:08)
[2018-07-02] MEDS ORDERED: Succinylcholine Chloride 20 mg/ml Syr (5 ml) IV ONE (12:57)
[2018-07-02] MEDS ORDERED: Rocuronium 10 mg/ml (5 ml) ONE (12:57)
[2018-07-02] MEDS ORDERED: Neostigmine 1:1000 (1 mg/ml) Inj ONE (13:46)
--- NOTE | 2018-07-02 14:17 | PCM.SURG1 ---
Surgeon's Initial Post Op Note - Surgeon's Notes Surgeon: Dr. Souza Tallow Pumper: Dr. Panda PGY3 Type of Anesthesia: General Endo Pre-Operative Diagnosis: symptomatic cholelithiasis Operative Findings: see dictation Post-Operative Diagnosis: same Operation Performed: robot-assisted laparoscopic cholecystectomy Specimen/Specimens Removed: gallbladder Estimated Blood Loss: EBL {In ML}: 15 Blood Products Given: N/A Drains Used: No Drains Post-Op Condition: Good Date of Surgery/Procedure: 07/02/18 Time of Surgery/Procedure: 14:17
[2018-07-02] MEDS ORDERED: Oxycodone/Acetaminophen 5/325 mg Tab PO PRN (14:18)
[2018-07-02] MEDS ORDERED: Lactated Ringer's 1,000 ML IV SCH (14:30)
[2018-07-02] MEDS ORDERED: Pantoprazole 40 mg EC Tab PO SCH (14:45)
[2018-07-02] MEDS ORDERED: Lactated Ringer's 1,000 ML IV ONE (16:11)
[2018-07-02] MEDS: HYDROmorphone 0.5 mg/0.5 ml ISec IVP PRN ×2 (16:20→16:50)
[2018-07-02 19:50] VITALS: RESP 20
[2018-07-02] MEDS: Albuterol-Ipratrop 3 mg / 0.5 (3 ml) UD INH PRN (21:31)
[2018-07-03] MEDS: Lactated Ringer's 1,000 ML IV SCH ×3 (00:51→10:55)
[2018-07-03 09:23] VITALS: PULSE 67; TEMP 98.3; O2SAT 100
[2018-07-03] MEDS ORDERED: VILANTEROL TR IH SCH (10:00)
[2018-07-03] MEDS ORDERED: UMECLIDINIUM BRM IH SCH (10:00)
[2018-07-03] MEDS ORDERED: NORETHINDRONE 0.35 MG PO SCH (10:00)
[2018-07-03 10:13] VITALS: BP 133/77
[2018-07-03] MEDS: Albuterol-Ipratrop 3 mg / 0.5 (3 ml) UD INH PRN (11:09)
[2018-07-03 12:00] LABS: BASO # 0.1 K/uL (0.0-0.2); BASO % 0.9 % (0.0-2.0); EOS # 0.1 K/uL (0.0-0.7); EOS % 0.5 % (0.0-4.0); HEMOGLOBIN 12.9 g/dL (11.0-16.0); LYMPH # 1.9 K/uL (1.0-4.3); LYMPH % 17.7 % (20.0-40.0); MEAN CELL VOLUME 95.5 fL (81.0-99.0); MEAN CORPUSCULAR HEMOGLOBIN 30.9 pg (27.0-31.0); MEAN CORPUSCULAR HGB CONC 32.4 g/dL (33.0-37.0); MEAN PLATELET VOLUME 8.3 fL (7.2-11.7); MONO # 0.8 K/uL (0.0-0.8); MONO % 7.5 % (0.0-10.0); NEUT % 73.4 % (50.0-75.0); RBC 4.18 Mil/uL (3.80-5.20); RED CELL DISTRIBUTION WIDTH 13.5 % (11.5-14.5); WHITE BLOOD COUNT 10.9 K/uL (4.8-10.8)
--- NOTE | 2018-07-03 17:41 | CP.PCM.DIS ---
Provider - Provider Date of Admission: 07/02/18 14:10 Attending physician: Char Souza MD Consults: 07/02/18 14:38 Physician Consult Routine Comment: Consulting Provider: Mike Orosco Consulting Physician: Mike Orosco Reason for Consult: known pt; SLE; s/p robotic manohar Time Spent in preparation of Discharge (in minutes): 40 Hospital Course - Lab Results Lab Results: Most Recent Lab Values WBC 10.9 K/uL (4.8-10.8) H 07/03/18 11:53 RBC 4.18 Mil/uL (3.80-5.20) 07/03/18 11:53 Hgb 12.9 g/dL (11.0-16.0) 07/03/18 11:53 Hct 39.9 % (34.0-47.0) 07/03/18 11:53 MCV 95.5 fL (81.0-99.0) 07/03/18 11:53 MCH 30.9 pg (27.0-31.0) 07/03/18 11:53 MCHC 32.4 g/dL (33.0-37.0) L 07/03/18 11:53 RDW 13.5 % (11.5-14.5) 07/03/18 11:53 Plt Count 255 K/uL (130-400) 07/03/18 11:53 MPV 8.3 fL (7.2-11.7) 07/03/18 11:53 Neut % (Auto) 73.4 % (50.0-75.0) 07/03/18 11:53 Lymph % (Auto) 17.7 % (20.0-40.0) L 07/03/18 11:53 [place] % (Auto) 7.5 % (0.0-10.0) 07/03/18 11:53 Eos % (Auto) 0.5 % (0.0-4.0) 07/03/18 11:53 Baso % (Auto) 0.9 % (0.0-2.0) 07/03/18 11:53 Neut # (Auto) 8.0 K/uL (1.8-7.0) H 07/03/18 11:53 Lymph # (Auto) 1.9 K/uL (1.0-4.3) 07/03/18 11:53 [place] # (Auto) 0.8 K/uL (0.0-0.8) 07/03/18 11:53 Eos # (Auto) 0.1 K/uL (0.0-0.7) 07/03/18 11:53 Baso # (Auto) 0.1 K/uL (0.0-0.2) 07/03/18 11:53 ESR 20 mm/hr (0-20) 07/03/18 11:53 Sodium 138 mmol/L (132-148) 07/03/18 11:53 Potassium 3.6 mmol/L (3.6-5.2) 07/03/18 11:53 Chloride 103 mmol/L (98-107) 07/03/18 11:53 Carbon Dioxide 25 mmol/L (22-30) 07/03/18 11:53 BUN 13 mg/dL (7-17) 07/03/18 11:53 POC Glucose (mg/dL) 108 mg/dL (65-110) 07/02/18 21:08 - Hospital Course Hospital Course: 27F presented to hospital for same day surgery, laparoscopic assisted robotic cholecystectomy. Patient tolerated the procedure well, and is tolerating diet this morning. Patient ready for DC. Discharge Exam - Respiratory Exam Respiratory Exam: Clear to PA & Lateral, NORMAL BREATHING PATTERN - Cardiovascular Exam Cardiovascular Exam: REGULAR RHYTHM, +S1, +S2 - GI/Abdominal Exam GI & Abdominal Exam: Soft. absent: Distended, Firm, Guarding, Rebound, Rigid, Tenderness Additional comments: Incisions CDI - Neurological Exam Neurological exam: Alert, Oriented x3 - Skin Skin Exam: Dry, Intact, Normal Color, Warm Discharge Plan - Discharge Medications Prescriptions: Sennosides [Senokot] 8.6 mg PO BID #30 tablet traMADol [Ultram] 50 mg PO TID PRN #15 tab PRN Reason: Pain, Moderate (4-7) - Follow Up Plan Condition: GOOD Disposition: HOME/ ROUTINE Instructions: How to Prevent Surgical Site Infections, Cholecystectomy (DC), Cholecystectomy, Laparoscopic Surgery, Senna, Tramadol, Managing Pain After Surgery Additional Instructions: See attached instructions Referrals: Mike Orosco MD [Staff Provider] - Char Souza MD [Staff Provider] -
--- NOTE | 2018-07-04 22:30 | CP.PCM.PN ---
Subjective - Date & Time of Evaluation Date of Evaluation: 07/03/18 Time of Evaluation: 17:10 - Subjective Subjective: patient underwent robotic cholecystectomy and tolerated procedure well. Laboratory studie postoperatively to not reveal any lupus flare. Patient advised to continue present medications. Follow-up as outpatient in 1 week. Objective - Vital Signs/Intake and Output Vital Signs (last 24 hours): Temp Pulse Resp BP Pulse Ox 98.3 F 67 20 133/77 100 07/03/18 07:00 07/03/18 07:00 07/03/18 07:00 07/03/18 10:00 07/03/18 07:00 - Labs Labs: 07/03/18 11:53 07/03/18 11:53
--- NOTE | 2018-07-15 09:54 | PCM.OP ---
Operative Report - Operative Report Date of Surgery/Procedure: 07/02/18 Time of Surgery/Procedure: 08:30 Surgeon: Char Souza MD [facility] Nurse Practitioner: Salome Panda DO (PGY3 resident) Anesthesia/Sedation: See main Pre-Operative Diagnosis: See main Post-Operative Diagnosis: See main Indication for Surgery: See main Operative Findings: See main Procedure/Operation Description: Anesthesia: General endotracheal; 1% lidocaine + 0.25% Marcaine 50/50 mix local anesthesia PRE-OPERATIVE DIAGNOSIS: Recurrent symptomatic cholelithiasis Lupus Obesity Asthma POSTOPERATIVE DIAGNOSIS: Same; acute on chronic cholecystitis INDICATION: This is a 27-year-old male with multiple medical problems including SLE on immunomodulator medications who presented to my office with recurrent symptomatic cholelithiasis. Details of HPI in clinical chart. Taken to the operating room for laparoscopic, robotic assisted cholecystectomy. Patient understands the risks and benefits of the procedure as documented in the clinic chart but specifically risk of cystic duct leak and common bile duct injury and has consented to the procedure. Plan to admit for 23 hours observation for significant asthma history and possible SLE flare, need for IV steroids. PROCEDURE PERFORMED: 1. Robotic Assisted, Laparoscopic Cholecystectomy with Intraoperative Indigocyanine florescence OPERATIVE FINDINGS: Fluid filled gallbladder with large stones in body. Mild acute inflammation. Cystic duct flow confirmed using Firefly fluorescence prior to clipping and dividing. Clips in place on cystic duct and cystic artery at end of case without evidence of bleeding or bile leak. DETAILS OF OPERATION: The patient was given a preoperative dose of Ancef 2g 20 minutes before the incision. SCD boots were placed for DVT prophylaxis. The patient voided in pre- op immediately prior to surgery and no slade was placed. An orogastric tube placed in order to empty the stomach after the induction of general anesthesia. Upper body warmer placed. Secure straps placed above and bleow the knees and footboard placed. Arms placed on arm boards at patients side. All bony prominences were padded.A timeout was performed prior to incision. The abdomen was prepped and draped in sterile fashion. All skin incisions were made using an 11-blade scalpel after the injection of local anesthesia. Abdominal entry was gained using an 8mm optically viewing trocar with A 5mm 0- degree laparoscope placed in the left upper quadrant. All layers of the abdominal wall were seen and peritoneal entry directly visualized. The abdomen was then insufflated with C02 pneumoperitoneum to 15mmhg. 5mm 0-degree laparoscope was then inserted and the abdomen was generally inspected. There were no signs of injury from initial entry and there was not found to be any additional signs of pathology. Next 3 additional 8mm ports were placed under direct vision, one in the supraumbilical midline, and two additional ports were then placed in the In the right mid abdomen, medial and lateral just above the level of umbilicus. The patient was placed in slight reverse trendelenberg and right side up. A face protecting foam was placed over the patient's face and the robot was docked to the patient. An 8mm 30 degree robotic camera was first inserted and robotic instruments were then inserted under direct visualization. A prograsp retractor in the right lateral port, fenestrated bipolar in right medial port, and monopolar hook cautery in the left abdominal port. The fundus of the gallbladder was identified beneath the liver edge and retracted to the right upper quadrant with the prograsp grasper and locked in place. The neck of the gallbladder was visualized. There were minimal omental adhesions to the gallbladder that were taken down with a combination of blunt dissection and monopolar hook cautery. The peritoneal attachments from the lateral portion of the gallbladder/cystic duct junction were gently dissected and divided to open up the Norman of [place]. The Norman of [place] was then dissected up onto the liver bed posterior to the gallbladder in order to ensure that this was the cystic duct and not tenting of the common bile duct. The peritoneal attachments on the medial portion of the gallbladder going up to the side of the liver were taken down. This was continued until the proximal gallbladder was dissected off the cystic plate. The critical view was obtained and confirmed on both anterior and posterior views. Photodocumentation was obtained and a copy placed in the patients chart. The cystic duct and cystic artery were then doubly clipped and ligated and divided using scissors. The gallbladder was dissected free from the liver bed using electrocautery and placed this in an endo catch bag. Once this was done, the abdomen was reinspected. The clips were re-inspected and in good position on the cystic artery and duct stumps. Hemostassis on the liver bed was achieved using hook cautery. Robotic instruments were withdrawn under direct vision and the robot was then undocked from the patient. Robotic Camera was reinserted through the left abdominal port and gallbladder specimen was withdrawn through the umbilical port. Once this was done, the remaining ports were removed from the abdomen and the abdomen was desufflated with air. The umbilical port was closed with a [id number] 0-Vicryl suture and the skin incisions were closed with 4-0 monocryl sutures and finally dermabond applied. The patient tolerated the procedure well and was extubated in the operating room and brought to recovery in stable condition. I was present for the entirety of the operation. All sponge, needle and instrume nt counts were correct. Estimated Blood Loss: 15mL Complications: none Specimen: gallbladder Discharge & Condition: See main
== END 2018-07-03 14:46 | disposition home or self-care (01) ==
LOC: C.SDS 09:36 → C.9S 14:10 → C.6T 18:15
PROVIDERS: ADMIT Surgery; ATTEND Surgery
DX: K80.12 Calculus of gallbladder with acute and chronic cholecystitis without obstruction (principal); M32.9 Systemic lupus erythematosus, unspecified; E66.9 Obesity, unspecified; J45.909 Unspecified asthma, uncomplicated
CPT/HCPCS: 36415; 47562; 80051; 82948; 84520; 85025; 85651; 88304; 94640; 96372; 96374; 96376; G0378; J0131; J0690; J1170; J1644; J1885; J2001; J2250; J2405; J2704; J2710; J2930; J3010; J7120; S2900

== ENCOUNTER 2018-09-16 08:57 | Emergency (ER) | payer MEDICAID ==
[2018-09-16 09:23] VITALS: BMI 28.1
[2018-09-16] MEDS ORDERED: Iohexol 240 (50 ml) PO STA (10:27)
[2018-09-16] MEDS ORDERED: Iohexol 240 (50 ml) ONE (10:42)
[2018-09-16 10:50] LABS: BASO # 0.1 K/uL (0.0-0.2); BASO % 0.7 % (0.0-2.0); EOS # 0.1 K/uL (0.0-0.7); EOS % 0.6 % (0.0-4.0); HEMOGLOBIN 13.1 g/dL (11.0-16.0); LYMPH # 1.6 K/uL (1.0-4.3); LYMPH % 18.8 % (20.0-40.0); MEAN CELL VOLUME 94.2 fL (81.0-99.0); MEAN CORPUSCULAR HEMOGLOBIN 30.8 pg (27.0-31.0); MEAN CORPUSCULAR HGB CONC 32.7 g/dL (33.0-37.0); MEAN PLATELET VOLUME 7.6 fL (7.2-11.7); MONO % 11.3 % (0.0-10.0); NEUT # 5.9 K/uL (1.8-7.0); NEUT % 68.6 % (50.0-75.0); NRBC % 0.1 % (0.0-2.0); RBC 4.27 Mil/uL (3.80-5.20); RED CELL DISTRIBUTION WIDTH 14.6 % (11.5-14.5); WHITE BLOOD COUNT 8.6 K/uL (4.8-10.8)
[2018-09-16 11:03] LABS: ALB/GLOB RATIO 1.4 (1.0-2.1); ALBUMIN 4.1 g/dL (3.5-5.0); ALT/SGPT 29 U/L (9-52); AST/SGOT 26 U/L (14-36); BLOOD UREA NITROGEN 14 mg/dL (7-17); CALCIUM 9.5 mg/dl (8.6-10.4); GFR NON-AFRICAN AMERICAN > 60
[2018-09-16] MEDS ORDERED: Sodium Chloride 0.9% 1,000 ML IV ONE (11:08)
[2018-09-16 11:12] LABS: SQUAMOUS EPITHIAL 12 /hpf (0-5); URINE BACTERIA RARE (<OCC); URINE BILIRUBIN NEGATIVE (NEGATIVE); URINE BLOOD 3+ (NEGATIVE); URINE CLARITY Hazy (Clear); URINE COLOR Yellow (YELLOW); URINE GLUCOSE (UA) NORMAL (Normal); URINE LEUKOCYTE ESTERASE 3+ Leu/uL (Negative); URINE PROTEIN NEGATIVE (NEGATIVE); URINE UROBILINOGEN NORMAL mg/dL (0.2-1.0)
[2018-09-16 11:14] LABS: HCG,QUALITATIVE URINE NEGATIVE (NEGATIVE)
--- NOTE | 2018-09-16 11:14 | C.PDOC ---
History Of Present Illness 27 y/o female presents to ED for 4 day history of suprapubic and RLQ abdominal tenderness radiating to her back. Reports that there was some blood in her urine, associated with hematuria and nausea. States that the pain progressively got worse prior to visit. Patient has PMHx of cholecystectomy but no other abdominal surgery. Denies any similar symptoms in the past. Denies vomiting, diarrhea, fever, travel, GI bleeding, chest pain. Time Seen by Provider: 09/16/18 09:33 Chief Complaint (Nursing): Abdominal Pain History Per: Patient History/Exam Limitations: no limitations Onset/Duration Of Symptoms: Days Current Symptoms Are (Timing): Still Present Past Medical History Reviewed: Historical Data, Nursing Documentation, Vital Signs Vital Signs: Last Vital Signs Temp 98.4 F 09/16/18 09:24 Pulse 75 09/16/18 09:24 Resp 17 09/16/18 09:24 BP 138/97 H 09/16/18 09:24 Pulse Ox 97 09/16/18 09:24 Primary Care Provider: Jessica Cline - Medical History PMH: Anemia, Arthritis, Asthma, Fractures (HX:LEFT ANKLE FRACTURE), Gall Bladder Disease, HTN, Peripheral Edema (FROM FRACTURE), Rheumatoid Arthritis (SLE '05), Seizures (FEBRILE) Denies: Chronic Kidney Disease Surgical History: Endoscopy - [facility] Procedures FUSION OF LEFT ANKLE JOINT WITH INT FIX, OPEN APPROACH (11/08/15) INJECT/INFUSE NEC (03/22/14) REMOVAL OF SYNTH SUB FROM L LOW EXTREM, OPEN APPROACH (09/20/16) SUPPLEMENT LEFT TIBIA WITH SYNTH SUB, OPEN APPROACH (09/20/16) Family History: States: No Known Family Hx - Social History Hx Tobacco Use: No Hx Alcohol Use: No Hx Substance Use: No - Immunization History Hx Tetanus Toxoid Vaccination: No Hx Influenza Vaccination: Yes (04/2018) Hx Pneumococcal Vaccination: No Review Of Systems Except As Marked, All Systems Reviewed And Found Negative. Constitutional: Negative for: Fever, Chills Respiratory: Negative for: Cough, Shortness of Breath Gastrointestinal: Positive for: Nausea, Abdominal Pain (suprapubic and RLQ). Negative for: Vomiting, Diarrhea, Hematochezia Genitourinary: Positive for: Dysuria, Hematuria. Negative for: Vaginal Bleeding Physical Exam - Physical Exam Appears: Non-toxic, No Acute Distress Skin: Warm, Dry, No Rash Head: Atraumatic, Normacephalic Eye(s): bilateral: Normal Inspection Oral Mucosa: Moist Neck: Normal ROM, No Midline Cervical Tenderness, No Paracervical Tenderness, Supple Chest: Symmetrical, No Tenderness Cardiovascular: Rhythm Regular, No Murmur Respiratory: Normal Breath Sounds, No Rales, No Rhonchi, No Wheezing Gastrointestinal/Abdominal: Bowel Sounds (active), Soft, Tenderness (in RLQ and suprapubic area), No Guarding, No Rebound Back: Normal Inspection, No CVA Tenderness, No Vertebral Tenderness, No Paraspinal Tenderness Extremity: Normal ROM, No Swelling Extremity: Bilateral: Atraumatic, Normal ROM Neurological/Psych: Oriented x3, Normal Speech Gait: Steady ED Course And Treatment - Laboratory Results Result Diagrams: 09/16/18 10:46 09/16/18 10:46 Lab Results: Total Bilirubin 0.5 mg/dL (0.2-1.3) 09/16/18 10:46 AST 26 U/L (14-36) 09/16/18 10:46 ALT 29 U/L (9-52) 09/16/18 10:46 Alkaline Phosphatase 60 U/L (38-126) 09/16/18 10:46 Total Protein 7.1 g/dL (6.3-8.3) 09/16/18 10:46 Albumin 4.1 g/dL (3.5-5.0) 09/16/18 10:46 Globulin 2.9 gm/dL (2.2-3.9) 09/16/18 10:46 Albumin/Globulin Ratio 1.4 (1.0-2.1) 09/16/18 10:46 O2 Sat by Pulse Oximetry: 97 (RA) Pulse Ox Interpretation: Normal - CT Scan/US Abd/Pel CT Other Rad Studies (CT/US): Read By Radiologist, Radiology Report Reviewed CT/US Interpretation: FINDINGS: LOWER THORAX: Unremarkable. LIVER: Fatty infiltration of the liver. Heterogeneous attenuation of the hepatic parenchyma. More confluent low attenuation within the mid right hepatic lobe for example on series 3, image 19, nonspecific. GALLBLADDER AND BILE DUCTS: Interval cholecystectomy. At the level of the common bile duct best seen on series 3, image 41 there is a punctate 5 millimeter radiopaque foci as demonstrated on series 3, image 41. This is nonspecific. Small common bile duct stone cannot be excluded. Correlation with MRCP may be helpful if clinically indicated. PANCREAS: Unremarkable. No gross lesion or ductal dilatation. SPLEEN: Unremarkable. Few small soft tissue nodules noted anterior and inferior to the spleen on series 3, image 45 measuring 7 and 8 millimeters which may represent splenules and or soft tissue mesenteric nodules. Clinical correlation. ADRENALS: Unremarkable. No mass. KIDNEYS AND URETERS: Punctate nonobstructive calculi seen throughout the right kidney for example in the upper pole measuring 1 millimeter, midpole measuring 2 millimeters, and lower pole measuring 2 and 2 millimeters respectively. No gross hydronephrosis. Distal ureter not well imaged given the extensive beam hardening artifact. Left Kidney: No gross calculi or hydronephrosis. Distal ureter not well imaged given the extensive beam hardening artifact. VASCULATURE: Unremarkable. No aortic aneurysm. No aortic atherosclerotic calcification or mural plaque present. BOWEL: Unremarkable. No obstruction. No gross mural thickening. Fecal retention in the colon. APPENDIX: Partially contrast filled and grossly preserved. PERITONEUM: Unremarkable. No free fluid. No free air. LYMPH NODES: Unremarkable. No enlarged lymph nodes. BLADDER: Markedly limited evaluation of the urinary bladder given the extensive beam hardening artifact from bilateral hip prostheses. The visualized anterior urinary bladder may be thickened. Correlation with ultrasound may be helpful if clinically indicated. REPRODUCTIVE: Markedly limited evaluation of the uterus and bilateral adnexa given the prominent beam hardening artifact from bilateral hip prostheses. Heterogeneous and prominent uterus. Left adnexa measures up to 4 centimeters. Suggestion of an internal 3 centimeter left adnexal cyst. Correlation with pelvic ultrasound may be helpful if clinically indicated. BONES: Degenerative changes in the spine. Bilateral hip prostheses. Chronic deformity of the mid inferior right pubic bone. OTHER FINDINGS: None. IMPRESSION: 1. Interval cholecystectomy. At the level of the common bile duct best seen on series 3, image 41 there is a punctate 5 millimeter radiopaque foci as demonstrated on series 3, image 41. This is nonspecific. Small common bile duct stone cannot be excluded. Correlation with MRCP may be helpful if clinically indicated. 2. Punctate nonobstructive calculi seen throughout the right kidney for example in the upper pole measuring 1 millimeter, midpole measuring 2 millimeters, and lower pole measuring 2 and 2 millimeters respectively. No gross hydronephrosis. Distal ureter not well imaged given the extensive beam hardening artifact. 3. Markedly limited evaluation of the urinary bladder given the extensive beam hardening artifact from bilateral hip prostheses. The visualized anterior urinary bladder may be thickened. Correlation with ultrasound may be helpful if clinically indicated. 4. Markedly limited evaluation of the uterus and bilateral adnexa given the prominent beam hardening artifact from bilateral hip prostheses. Heterogeneous and prominent uterus. Left adnexa measures up to 4 centimeters. Suggestion of an internal 3 centimeter left adnexal cyst/cystic lesion. Correlation with pelvic ultrasound may be helpful if clinically indicated. Clinical correlation. . 5. Fatty infiltration of the liver. Heterogeneous attenuation of the hepatic parenchyma. More confluent low attenuation within the mid right hepatic lobe for example on series 3, image 19, nonspecific. Medical Decision Making Medical Decision Making: Plan: --Abd/Pel CT --Labs --UA --Urine preg --Omnipaque --Pepcid --IV fluids --Toradol --Zofran On re-exam, the patient reports improvement of symptoms. Lungs are CTA, heart is RRR, abdomen is soft, non-tender and tolerating PO well. Follow up with the medical doctor within 1-2 days. Return if worsened. Disposition - Disposition Referrals: Jessica Cline MD [Medical Doctor] - Disposition: HOME/ ROUTINE Disposition Time: 13:00 Condition: STABLE Additional Instructions: FOLLOW UP WITH THE UROLOGIST SCHEDULED WITHOUT FAIL TOMORROW. RETURN IF WORSENED. Prescriptions: Naproxen [Naprosyn] 500 mg PO BID #20 tab Nitrofurantoin Macrocrystals [Macrobid] 1 cap PO BID #14 cap Instructions: Urinary Tract Infections in Adults Forms: [employer] ([place]), School Excuse - POA Present On Arrival: None - Clinical Impression Clinical Impression: Urinary tract infection - PA / MILIEU THERAPIST / Resident Statement MD/DO has reviewed & agrees with the documentation as recorded. - Scribe Statement The provider has reviewed the documentation as recorded by the Scribe Yamileth Campos All medical record entries made by the Scribe were at my direction and personally dictated by me. I have reviewed the chart and agree that the record accurately reflects my personal performance of the history, physical exam, medical decision making, and the department course for this patient. I have also personally directed, reviewed, and agree with the discharge instructions and disposition.
--- NOTE | 2018-09-16 13:11 | CT ---
Date of service: 09/16/2018 PROCEDURE: CT Abdomen and Pelvis without intravenous contrast HISTORY: Right lower quadrant and suprapubic pain COMPARISON: 06/25/2018 TECHNIQUE: Multiple contiguous axial images were performed through the abdomen and pelvis without the use of intravenous contrast. Subsequently, sagittal and coronal reformatted images were obtained.. Radiation dose: Total exam DLP = 726.52 mGy-cm. This CT exam was performed using one or more of the following dose reduction techniques: Automated exposure control, adjustment of the mA and/or kV according to patient size, and/or use of iterative reconstruction technique. FINDINGS: LOWER THORAX: Unremarkable. LIVER: Fatty infiltration of the liver. Heterogeneous attenuation of the hepatic parenchyma. More confluent low attenuation within the mid right hepatic lobe for example on series 3, image 19, nonspecific. GALLBLADDER AND BILE DUCTS: Interval cholecystectomy. At the level of the common bile duct best seen on series 3, image 41 there is a punctate 5 millimeter radiopaque foci as demonstrated on series 3, image 41. This is nonspecific. Small common bile duct stone cannot be excluded. Correlation with MRCP may be helpful if clinically indicated. PANCREAS: Unremarkable. No gross lesion or ductal dilatation. SPLEEN: Unremarkable. Few small soft tissue nodules noted anterior and inferior to the spleen on series 3, image 45 measuring 7 and 8 millimeters which may represent splenules and or soft tissue mesenteric nodules. Clinical correlation. ADRENALS: Unremarkable. No mass. KIDNEYS AND URETERS: Punctate nonobstructive calculi seen throughout the right kidney for example in the upper pole measuring 1 millimeter, midpole measuring 2 millimeters, and lower pole measuring 2 and 2 millimeters respectively. No gross hydronephrosis. Distal ureter not well imaged given the extensive beam hardening artifact. Left Kidney: No gross calculi or hydronephrosis. Distal ureter not well imaged given the extensive beam hardening artifact. VASCULATURE: Unremarkable. No aortic aneurysm. No aortic atherosclerotic calcification or mural plaque present. BOWEL: Unremarkable. No obstruction. No gross mural thickening. Fecal retention in the colon. APPENDIX: Partially contrast filled and grossly preserved. PERITONEUM: Unremarkable. No free fluid. No free air. LYMPH NODES: Unremarkable. No enlarged lymph nodes. BLADDER: Markedly limited evaluation of the urinary bladder given the extensive beam hardening artifact from bilateral hip prostheses. The visualized anterior urinary bladder may be thickened. Correlation with ultrasound may be helpful if clinically indicated. REPRODUCTIVE: Markedly limited evaluation of the uterus and bilateral adnexa given the prominent beam hardening artifact from bilateral hip prostheses. Heterogeneous and prominent uterus. Left adnexa measures up to 4 centimeters. Suggestion of an internal 3 centimeter left adnexal cyst. Correlation with pelvic ultrasound may be helpful if clinically indicated. BONES: Degenerative changes in the spine. Bilateral hip prostheses. Chronic deformity of the mid inferior right pubic bone. OTHER FINDINGS: None. IMPRESSION: 1. Interval cholecystectomy. At the level of the common bile duct best seen on series 3, image 41 there is a punctate 5 millimeter radiopaque foci as demonstrated on series 3, image 41. This is nonspecific. Small common bile duct stone cannot be excluded. Correlation with MRCP may be helpful if clinically indicated. 2. Punctate nonobstructive calculi seen throughout the right kidney for example in the upper pole measuring 1 millimeter, midpole measuring 2 millimeters, and lower pole measuring 2 and 2 millimeters respectively. No gross hydronephrosis. Distal ureter not well imaged given the extensive beam hardening artifact. 3. Markedly limited evaluation of the urinary bladder given the extensive beam hardening artifact from bilateral hip prostheses. The visualized anterior urinary bladder may be thickened. Correlation with ultrasound may be helpful if clinically indicated. 4. Markedly limited evaluation of the uterus and bilateral adnexa given the prominent beam hardening artifact from bilateral hip prostheses. Heterogeneous and prominent uterus. Left adnexa measures up to 4 centimeters. Suggestion of an internal 3 centimeter left adnexal cyst/cystic lesion. Correlation with pelvic ultrasound may be helpful if clinically indicated. Clinical correlation. 5. Fatty infiltration of the liver. Heterogeneous attenuation of the hepatic parenchyma. More confluent low attenuation within the mid right hepatic lobe for example on series 3, image 19, nonspecific.
[2018-09-16 13:39] VITALS: BP 126/81; PULSE 81; RESP 18; TEMP 98.1
[2018-09-18 17:33] VITALS: O2SAT 97
== END 2018-09-16 13:39 | disposition home or self-care (01) ==
LOC: C.ER 08:57
DX: N39.0 Urinary tract infection, site not specified (principal)
CPT/HCPCS: 74176; 80053; 81001; 84703; 85025; 99284; Q9966